=== PATIENT | male | born 1940 | race Caucasian/White ===

== ENCOUNTER 2018-04-16 15:19 | Inpatient (IN) | payer MEDICARE, OTHER ==
[~2018-04-16] VITALS: Ht 172.7 cm; Wt 73.9 kg
[~2018-04-16 15:19] MED LIST: ALBU0.63 IH; ALBU17AE3 IH; ALBU8.5H2 IH; AMLO10TA82 PO; BUDE10.2 IH; CIPR-226 PO; CPR500T PO; FORM0.5P MC; IBUP-1773 PO; LISI10TA2 PO; MNTL10T PO; PHEN-640 PO; PHEN200T27 PO; PRAV80TA2 PO; RT-COMBINH IH; THEO200T20 PO; THEO400T PO; TIOT18CA IH
[2018-04-16] MEDS ORDERED: diphenhydrAMINE 25 MG TAB (BENADRYL) PO PRN (15:45)
[2018-04-16] MEDS ORDERED: DOCUSATE SODIUM 100 MG (COLACE) CAP PO PRN (15:45)
[2018-04-16] MEDS ORDERED: ACETAMINOPHEN 500 MG TAB (TYLENOL) PO PRN (15:45)
[2018-04-16] MEDS ORDERED: ONDANSETRON 4 MG (ZOFRAN) ORAL DISSOLVE TAB PO PRN (15:45)
[2018-04-16] MEDS ORDERED: LOPERAMIDE 2 MG (IMODIUM) CAP PO PRN (15:45)
[2018-04-16] MEDS ORDERED: CALCIUM CARBONATE 500 MG (TUMS) TAB.CHEW PO PRN (15:45)
[2018-04-16] MEDS ORDERED: HYDROcodone/APAP 5 MG/325 MG (LORTAB) TAB PO PRN (15:45)
--- NOTE | 2018-04-16 17:05 | NUR ---
Admitted to room 229-1, with an admitting diagnosis of debility, on 04/16/18 from [place] [facility] , accompanied by .KARUNA SAMUELS introduced to surroundings, call light, bed controls, phone, TV, temperature control, lights, meal times, smoking policy, visitor policy, side rail policy, bathrooms and showers. Patient Rights given to patient in the handbook.KARUNA SAMUELS verbalizes understanding that [facility] is not responsible for the loss or damage to any personal effects or valuables that are kept in the patients posession during their hospitalization. The following Patient Care Plans were discussed with the : Discharge Planning, ,, and . KARUNA SAMUELS verbalizes understanding of Interdisciplinary Patient Education. Patient and/or family were informed about the Rapid Response Team and its purpose. Patient received Patient Rights Booklet, which includes Privacy Act Statement and Data Collection Information Summary.
[2018-04-16 17:30] VITALS: BP 96/62
--- OUTSIDE RECORDS SUMMARY | 2018-04-16 17:30 | XMS REPORT | Continuity of Care Document ---
Author Author [facility] Organization [facility] Address Unknown Phone Unavailable Allergies Active Description Code Type Severity Reaction Onset Reported/Identified Relationship to Patient Clinical Status Yes NO KNOWN DRUG ALLERGIES NO KNOWN DRUG ALLERG UNKNOWN Yes NO KNOWN DRUG ALLERGIES UNKNOWN NO KNOWN DRUG ALLERG Yes No Known Drug Allergies [id number] Drug Allergy Unknown N/A 10/06/2009 Medications Medication Packaging Start Date Stop Date Route Dosage Sig CEFDINIR CAP 300 MG (OMNICEF) MG 03/18/2016 ONCE&1836 HYDROCODONE/APAP 5MG/325MG TAB 5 MG/325MG (RE-TAB 5/325) TAB 03/18/2016 03/18/2016 ONCE&1852 HYDROCODONE/APAP 5MG/325MG TAB 5 MG/325MG (RE-TAB 5/325) TAB 04/03/2018 04/03/2018 PRN ONCE TRAMADOL PAIN PACK TAB 50 MG (ULTRAM PAIN PACK) MG 04/03/2018 04/03/2018 ONCE&1815 LACTATED RINGERS 1000CC IV BAG INJ ml 04/08/2018 04/08/2018 ONCE&1950 CEFTRIAXONE PREMIX IV BAG IV 1 GM/50CC (ROCEPHIN PREMIX IV BAG) GM 04/08/2018 04/08/2018 ONCE&202 FENTANYL INJ 100 MCG/2CC VIAL MCG 04/08/2018 04/08/2018 ONCE&2106 FENTANYL INJ 100 MCG/2CC VIAL MCG 04/08/2018 04/10/2018 PRN EVERY 1 Hour LACTATED RINGERS 1000CC IV BAG INJ ml 04/08/2018 04/10/2018 CONTINUOUSEVERY 0 Hour CEFTRIAXONE PREMIX IV BAG IV 1 GM/50CC (ROCEPHIN PREMIX IV BAG) GM 04/08/2018 04/08/2018 ONCE&2125 FENTANYL INJ 100 MCG/2CC VIAL MCG 04/08/2018 04/08/2018 ONCE&2244 FENTANYL INJ 100 MCG/2CC VIAL MCG 04/08/2018 04/08/2018 ONCE&2253 LACTATED RINGERS 1000CC IV BAG INJ ml 04/08/2018 04/08/2018 ONCE&2302 ACETAMINOPHEN ORAL TABLET 325mg(Tylenol) MG 04/08/2018 04/08/2018 ONCE&2312 PANTOPRAZOLE VIAL INJ 40 MG (PROTONIX IV) MG 04/09/2018 04/18/2018 Daily&0900 Problems Date Dx Coded Attending Type Code Diagnosis Diagnosed By 08/08/2010 Ot 188.8 MALIG FEDE BLADDER NEC 08/08/2010 Ot 401.9 HYPERTENSION NOS 08/08/2010 Ot 496 CHR AIRWAY OBSTRUCT NEC 08/08/2010 Ot 600.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 08/08/2010 Ot V58.69 OTH MED,LT, CURRENT USE 03/15/2015 XOCHITL CLIFTON MD Ot 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 03/15/2015 XOCHITL CLIFTON MD Ot E78.5 HYPERLIPIDEMIA, UNSPECIFIED 03/15/2015 XOCHITL CLIFTON MD Ot F17.210 NICOTINE DEPENDENCE, CIGARETTES, UNCOMPL 03/15/2015 XOCHITL CLIFTON MD Ot I10 ESSENTIAL (PRIMARY) HYPERTENSION 03/15/2015 XOCHITL CLIFTON MD Ot J44.9 CHRONIC OBSTRUCTIVE PULMONARY DISEASE, U 03/15/2015 XOCHITL CLIFTON MD Ot K40.90 UNIL INGUINAL HERNIA, W/O OBST OR GANGR, 03/15/2015 XOCHITL CLIFTON MD Ot Z11.2 ENCOUNTER FOR SCREENING FOR OTHER BACTER 12/11/2015 Ot 239.4 BLADDER NEOPLASM NOS 12/11/2015 Ot 791.9 ABN URINE FINDINGS NEC 12/11/2015 Ot V72.63 PRE- PROCEDURAL LABORATORY EXAMINATION 12/11/2015 Ot V72.81 EXAM-PRE- OPERATIVE CARDIOVASCULAR 12/11/2015 Ot V74.8 SCREEN- BACTERIAL DIS NEC 12/11/2015 XOCHITL CLIFTON MD Ot 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 12/11/2015 XOCHITL CLIFTON MD Ot Z01.818 ENCOUNTER FOR OTHER PREPROCEDURAL EXAMIN 12/12/2015 Ot 239.4 BLADDER NEOPLASM NOS 12/12/2015 Ot 791.9 ABN URINE FINDINGS NEC 12/12/2015 Ot V72.63 PRE- PROCEDURAL LABORATORY EXAMINATION 12/12/2015 Ot V72.81 EXAM-PRE- OPERATIVE CARDIOVASCULAR 12/12/2015 Ot V74.8 SCREEN- BACTERIAL DIS NEC 12/12/2015 XOCHITL CLIFTON MD Ot 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 12/12/2015 XOCHITL CLIFTON MD Ot Z01.818 ENCOUNTER FOR OTHER PREPROCEDURAL EXAMIN 12/12/2015 Ot 239.4 BLADDER NEOPLASM NOS 12/12/2015 Ot 791.9 ABN URINE FINDINGS NEC 12/12/2015 Ot V72.63 PRE- PROCEDURAL LABORATORY EXAMINATION 12/12/2015 Ot V72.81 EXAM-PRE- OPERATIVE CARDIOVASCULAR 12/12/2015 Ot V74.8 SCREEN- BACTERIAL DIS NEC 12/12/2015 XOCHITL CLIFTON MD Ot 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 12/12/2015 XOCHITL CLIFTON MD Ot Z01.818 ENCOUNTER FOR OTHER PREPROCEDURAL EXAMIN 12/13/2015 NIDIA DONALDSON SHAREPOINT APPLICATION DEVELOPER-WINDOWS ADMIN Ot R22.1 LOCALIZED SWELLING, MASS AND LUMP, NECK 12/13/2015 NIDIA DONALDSON SHAREPOINT APPLICATION DEVELOPER-WINDOWS ADMIN Ot R22.1 LOCALIZED SWELLING, MASS AND LUMP, NECK 12/17/2015 NIDIA DONALDSON SHAREPOINT APPLICATION DEVELOPER-WINDOWS ADMIN Ot R22.1 LOCALIZED SWELLING, MASS AND LUMP, NECK 12/19/2015 Ot 239.4 BLADDER NEOPLASM NOS 12/19/2015 Ot 791.9 ABN URINE FINDINGS NEC 12/19/2015 Ot V72.63 PRE- PROCEDURAL LABORATORY EXAMINATION 12/19/2015 Ot V72.81 EXAM-PRE- OPERATIVE CARDIOVASCULAR 12/19/2015 Ot V74.8 SCREEN- BACTERIAL DIS NEC 12/19/2015 XOCHITL CLIFTON MD Ot 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 12/19/2015 XOCHITL CLIFTON MD Ot Z01.818 ENCOUNTER FOR OTHER PREPROCEDURAL EXAMIN 12/19/2015 NIDIA DONALDSON SHAREPOINT APPLICATION DEVELOPER-WINDOWS ADMIN Ot R22.1 LOCALIZED SWELLING, MASS AND LUMP, NECK 12/20/2015 NIDIA DONALDSON SHAREPOINT APPLICATION DEVELOPER-WINDOWS ADMIN Ot R22.1 LOCALIZED SWELLING, MASS AND LUMP, NECK 12/26/2015 BOGE, NIDIA J SHAREPOINT APPLICATION DEVELOPER-WINDOWS ADMIN Ot R22.1 LOCALIZED SWELLING, MASS AND LUMP, NECK 03/18/2016 Mathieu Carrera 305.1 03/18/2016 Mathieu Carrera 491.20 03/18/2016 Mathieu Carrera J44.9 CHRONIC OBSTRUCTIVE PULMONARY DISEASE, UNSPECIFIED 03/18/2016 Mathieu Carrera Z72.0 TOBACCO USE 03/21/2016 Mathieu Carrera 883.1 OPEN WOUND OF FINGERS, COMPLICATED 03/21/2016 Mathieu Carrera S61.211A LACERATION W/O FB OF L IDX FNGR W/O DAMAGE TO NAIL, INIT 03/21/2016 Mathieu Carrera V58.31 ENCOUNTER FOR CHANGE OR REMOVAL OF SURGICAL WOUND DRESSING 03/21/2016 Mathieu Carrera Z48.01 ENCOUNTER FOR CHANGE OR REMOVAL OF SURGICAL WOUND DRESSING 03/24/2016 Mathieu Carrera 272.4 03/24/2016 Mathieu Carrera 724.1 PAIN IN THORACIC SPINE 03/24/2016 Mathieu Carrera 805.2 03/24/2016 Mathieu Carrera 805.4 03/24/2016 Mathieu Carrera 848.3 SPRAIN OF RIBS 03/24/2016 Mathieu Carrera 883.0 OPEN WOUND OF FINGERS, WITHOUT MENTION OF COMPLICATION 03/24/2016 Mathieu Carrera 922.33 CONTUSION OF INTERSCAPULAR REGION 03/24/2016 Mathieu Carrera 959.11 OTHER INJURY OF CHEST WALL 03/24/2016 Mathieu Carrera E78.5 HYPERLIPIDEMIA, UNSPECIFIED 03/24/2016 Mathieu Carrera M54.6 PAIN IN THORACIC SPINE 03/24/2016 Mathieu Carrera S20.221A CONTUSION OF RIGHT BACK WALL OF THORAX, INITIAL ENCOUNTER 03/24/2016 Mathieu Carrera S20.222A CONTUSION OF LEFT BACK WALL OF THORAX, INITIAL ENCOUNTER 03/24/2016 Mathieu Carrera S20.229A CONTUSION OF UNSPECIFIED BACK WALL OF THORAX, INIT ENCNTR 03/24/2016 Mathieu Carrera S22.080A WEDGE COMPRESSION FRACTURE OF T11-T12 VERTEBRA, INITIAL ENCOUNTER FOR CLOSED FRACTURE 03/24/2016 Mathieu Carrera S23.41XA SPRAIN OF RIBS, INITIAL ENCOUNTER 03/24/2016 Mathieu Carrera S29.092A OTHER INJURY OF MUSCLE AND TENDON OF BACK WALL OF THORAX, INITIAL ENCOUNTER 03/24/2016 Mathieu Carrera S32.050A WEDGE COMPRESSION FRACTURE OF FIFTH LUMBAR VERTEBRA, INITIAL ENCOUNTER FOR CLOSED FRACTURE 03/24/2016 Mathieu Carrera S61.211A LACERATION WITHOUT FOREIGN BODY OF LEFT INDEX FINGER WITHOUT DAMAGE TO NAIL, INITIAL ENCOUNTER 03/24/2016 Mathieu Carrera 401.0 03/24/2016 Mathieu Carrera 805.2 03/24/2016 Mathieu Carrera I10 ESSENTIAL (PRIMARY) HYPERTENSION 03/24/2016 Mathieu Carrera S22.050A WEDGE COMPRESSION FRACTURE OF T5-T6 VERTEBRA, INITIAL ENCOUNTER FOR CLOSED FRACTURE 03/29/2016 Mathieu Carrera V58.32 ENCOUNTER FOR REMOVAL OF SUTURES 03/29/2016 Mathieu Carrera Z48.02 ENCOUNTER FOR REMOVAL OF SUTURES 04/08/2018 Mir Larry 584.9 ACUTE KIDNEY FAILURE, UNSPECIFIED 04/08/2018 Mir Larry 599.0 URINARY TRACT INFECTION, SITE NOT SPECIFIED 04/08/2018 Mir Larry 728.88 RHABDOMYOLYSIS 04/08/2018 Mir Larry 780.97 ALTERED MENTAL STATUS 04/08/2018 Mir Larry 787.7 ABNORMAL FECES 04/08/2018 Mir Larry M62.82 RHABDOMYOLYSIS 04/08/2018 Mir Larry N17.9 ACUTE KIDNEY FAILURE, UNSPECIFIED 04/08/2018 Mir Larry N39.0 URINARY TRACT INFECTION, SITE NOT SPECIFIED 04/08/2018 Mir Larry R19.5 OTHER FECAL ABNORMALITIES 04/08/2018 Mir Larry R41.82 ALTERED MENTAL STATUS, UNSPECIFIED Procedures There is no data. Results Test Result Range BMP - 03/18/16 19:25 Anion Gap 17 6-14 BUN 15 mg/dL 5-25 Calcium 10.2 mg/dL 8.3-10.4 Chloride 101 mmol/L 95-114 CO2 20 mEq/L 22-33 Creat 0.96 mg/dL 0.50-1.50 eGFR 76 mL/min/1.73m2 >59 Glucose 99 mg/dL 70-110 Osmo 278 280-295 Potassium 4.2 mmol/L 3.5-5.3 Sodium 134 mmol/L 134-148 Urinalysis - 04/03/18 17:50 Icotest N/A Negative Urine Casts Granular cast: 0-2/HPF Urine Crystals Amorphous material: moderate/HPF Urine Volume Urine Volume Sufficient (10mL) Urine-Appearance Slightly Cloudy Clear Urine-Bacteria Trace Urine-Bilirubin Negative Negative Urine-Blood 2+ Negative Urine-Color Yellow Colorless-Lt. Yellow Urine-Epithelial Cells 1-5/HPF Urine-Glucose Negative Negative Urine-Ketones Trace Negative Urine-Leukocytes Negative Negative Urine-Nitrite Negative Negative Urine-Other Urine Saved if Culture Needed (48hrs from time of collection) Urine-pH 5.0 5-8.5 Urine-Protein Trace Negative Urine-RBC 2-5/HPF Urine-Specific Stanford >=1.030 1.000-1.030 Urine-WBC 2-5/HPF Urobilinogen 0.2 0.2-1.0 Cardiac Panel - 04/08/18 19:39 CK 639 U/L 26-174 CK-MB 14.5 Results verified by repeat analysis ng/ml 0.0- 9.2 Myoglobin >1200.0 Result Verified by Repeat Analysis ng/ml 1.6-154.9 Troponin <0.020 ng/mL 0.0-0.4 Arterial Blood Gas - 04/08/18 19:40 Base -12.00 mmol/L 1.80-4.20 HCO3 14 mmol/L 20-31 O2 Sat 95 ROOM AIR % 95-100 pCO2 26 mm/Hg 35-45 pH 7.34 7.35-7.45 PO2 81 mm/Hg 80-95 Blood Culture - 04/08/18 19:40 PRELIM CULTURE RESULTS Blood Culture Negative, No Growth Day 1 FINAL CULTURE RESULTS Blood Culture Negative, No Growth Day 5 MEDIA PLATED Setup at 21:05 on 04/[id number] Culture Media Position A12 CULTURE SOURCE arterial blood Urinalysis - 04/08/18 20:00 Icotest Negative Negative Urine Crystals Amorphous material: abundant/HPF Urine Volume Urine Volume Sufficient (10mL) Urine-Appearance Turbid Clear Urine-Bacteria Trace Urine-Bilirubin 2+ Negative Urine-Blood 1+ Negative Urine-Color Yellow Colorless-Lt. Yellow Urine-Epithelial Cells 5-10/HPF Urine-Glucose Negative Negative Urine-Ketones Trace Negative Urine-Leukocytes 1+ Negative Urine-Nitrite Negative Negative Urine-Other Urine Saved if Culture Needed (48hrs from time of collection) Urine-pH 5.0 5-8.5 Urine-Protein 1+ Negative Urine-RBC 2-5/HPF Urine-Specific Stanford 1.025 1.000-1.030 Urine-WBC 20-40/HPF Urobilinogen 0.2 0.2-1.0 Lactic Acid - 04/08/18 20:50 Lactic Acid 11.1 mg/dL 4.5-19.8 XM (2) LRPC - 04/08/18 20:50 CROSSMATCH COMPATIBLE X 2 Hct 27.7 % 42.0-52.0 Hgb 8.9 g/dL 14.0-17.0 TYPE/SCREEN - 04/08/18 20:50 ABO/RH O NEGATIVE ANTIBODY SCREEN NEGATIVE Blood Culture - 04/08/18 20:50 PRELIM CULTURE RESULTS Blood Culture Negative, No Growth Day 1 FINAL CULTURE RESULTS Blood Culture Negative, No Growth Day 5 MEDIA PLATED Setup at 21:05 on 04/08/[id number] Culture Media Position A11 CULTURE SOURCE drawn @ Right Arm IFOBT Occult Blood - 04/08/18 20:55 IFOBT Occult Blood POSITIVE Negative Encounters ACCT No. Visit Date/Time Discharge Status Pt. Type Provider Facility Loc./Unit Complaint [id number] 12/11/2015 07:59:00 12/11/2015 23:59:59 CLS Outpatient NIDIA DONALDSON-WINDOWS ADMIN [facility] RAD LT SOFT TISSUE NODULE [id number] 03/15/2015 06:18:00 03/15/2015 11:00:00 DIS Outpatient XOCHITL CLIFTON MD [facility] SDC BLADDER TUMOR [id number] 03/10/2015 11:29:00 03/10/2015 23:59:59 CLS Outpatient XOCHITL CLIFTON MD [facility] PREOP BLADDER TUMOR [id number] 08/08/2010 05:40:00 Document Registration [id number] 07/31/2010 13:39:00 Document Registration [id number] 04/08/2018 19:23:00 04/08/2018 23:25:00 [id number] 04/03/2018 17:20:00 04/03/2018 18:23:00 [facility] [id number] 03/29/2016 11:08:00 03/29/2016 11:35:00 DIS Outpatient Mathieu Carrera [id number] 03/21/2016 13:03:00 03/21/2016 23:59:00 DIS Outpatient Mathieu Carrera [id number] 03/18/2016 15:40:00 03/18/2016 19:41:00 DIS Outpatient [facility] ER [id number] 03/18/2016 18:36:33 Document Registration
--- NOTE | 2018-04-16 18:22 | PM&R H&P / Post Admit Assess ---
History of Present Illness HPI/Chief Complaint CC: Critical illness myopathy w/metabolic encephalopathy HPI: This is a 77yoWM who was [facility] due to critical illness with acute renal failure of 3.7 and dislocated right shoulder with right proximal humerus fracture with sepsis and UTI. Patient was intubated for a short time for AECOPD and metabolic acidosis along with respiratory acidosis. Patient had multiple falls at his home 5 days prior to admit and presented to [facility] with confusion and acute renal failure. Pt was thought to have meningitis but LP revealed no growth. UTI caused bacteremia and sepsis and patient was ultimately placed on Levaquin and will complete that treatment in 7 more days. Patient does have h/o bladder cancer and having urinary frequency so will consult Dr Quiñonez Urology. [place] [facility] [place], [place] as his PCP due to serving in the [employer] for 12 years then serving as a [employer] for 40+ years. His new PCP will be Dr Lavonne Paul. Patient is a poor historian and has multiple chronic illnesses that will require extensive medical management in order to optimize prior to DC home. Source: patient, family, RN/MD, old records Exam Limitations: other Date Seen 04/16/18 Time Seen by a Provider: 18:15 Attending Physician Denita Brown DO PCP No,Local Physician Referring Physician Date of Admission Apr 16, 2018 at 17:05 Home Medications & Allergies Home Medications Reviewed patient Home Medication Reconciliation performed by pharmacy medication reconciliations air conditioning service technician and/or nursing. Patients Allergies have been reviewed. Allergies Allergies Coded Allergies No Known Drug Allergies (Unverified10/06/09) Past Szbdvqe-Ucjpqy-Xvlmte Hx Past Med/Social Hx: Reviewed Nursing Past Med/Soc Hx, Reviewed and Corrections made Patient Social History Marrital Status: Employed/Student: retired ([employer] then [employer] then [employer]) Alcohol Use: Occasionally Uses Recreational Drug Use: No Smoking Status: Former Smoker Physical Abuse Screen: No Sexual Abuse: No Recent Foreign Travel: No Contact w/other who traveled: No Recent Hopitalizations: Yes Recent Infectious Disease Expo: No Immunizations Up To Date Pediatric: Yes Date of Pneumonia Vaccine: Mar 03, 2016 Date of Influenza Vaccine: Jan 01, 2018 Seasonal Allergies Seasonal Allergies: Yes Past Medical History Surgeries: Bladder Surgery Respiratory: Chronic Bronchitis, COPD Currently Using CPAP: No Currently Using BIPAP: No Cardiac: Hypertension Neurological: Dementia Reproductive: No Sexually Transmitted Disease: No Genitourinary: Prostate Problems, Bladder Infection Bladder cancer Musculoskeletal: Chronic Back Pain, Fractures Cancer: Bladder, Skin Did You Recieve Any Treatments: Yes Psychosocial: PTSD History of Blood Disorders: Yes Adverse Reaction to Blood Chen: No Family History Patient reports no known family medical history. Hypertension Review of Systems Constitutional: see HPI, malaise, weakness EENTM: no symptoms reported Respiratory: dyspnea on exertion, short of breath, wheezing Cardiovascular: no symptoms reported Gastrointestinal: no symptoms reported Genitourinary: frequency, hesitancy, incontinence, nocturia Musculoskeletal: other (right arm pain) Skin: no symptoms reported Psychiatric/Neurological: Other (confusion) All Other Systems Reviewed Negative Unless Noted: Yes Physical Exam Exam Vital Signs Vital Signs Date Time Temp Pulse Resp B/P (MAP) Pulse Ox O2 Delivery O2 Flow Rate FiO2 04/17/18 16:03 98 Nasal Cannula 2.50 04/17/18 09:06 126/72 (90) 04/17/18 06:00 98.6 88 20 Capillary Refill : General Appearance: No Apparent Distress, WD/WN, Chronically ill Neck: Full Range of Motion, Normal Inspection, Non Tender, Supple Respiratory: Chest Non Tender, No Accessory Muscle Use, No Respiratory Distress , Crackles, Decreased Breath Sounds, Wheezing Cardiovascular: Regular Rate, Rhythm, No Edema, No Gallop, No JVD, No Murmur Gastrointestinal: Normal Bowel Sounds, No Organomegaly, No Pulsatile Mass, Non Tender, Soft Back: Normal Inspection, No CVA Tenderness, No Vertebral Tenderness Extremity: Normal Capillary Refill, Normal Inspection, Non Tender, No Calf Tenderness, No Pedal Edema, Other (limited ROM right arm with sling intact) Neurologic/Psychiatric: Alert, Oriented x3, No Motor/Sensory Deficits, Normal Mood/Affect, Disoriented, Other (baseline memory impairment noted) Skin: Normal Color, Warm/Dry; No Cool, No Cyanosis, No Damp, No Diaphoresis, No Ecchymosis, No Erythema, No Jaundice, No Mottled, No Pallor, No Petechia, No Rash, No Tattoos/Piercings, No Other Results Results/Procedures Labs Laboratory Tests 04/17/18 05:35 Patient resulted labs reviewed. Assessment/Plan Assessment and Plan Assess & Plan/Chief Complaint Assessment: s/p critical illness s/p sepsis Falls Confusion s/p ARF Severe anemia COPD s/p VDRF Right proximal humerus fracture in sling HTN HLP Poor nutrition status h/o bladder cancer Incontinence with frequency prompting Urology consultation Plan: Check iron level Pain control BM regimen Urology consultation Monitor closely melvin lung function (1) Encephalopathy (2) COPD (chronic obstructive pulmonary disease) (3) Wheezing (4) Proximal humerus fracture (5) Anemia (6) History of renal failure (7) UTI (urinary tract infection) (8) History of sepsis (9) History of bladder cancer (10) Incontinence of urine (11) Confusion (12) Hypertension (13) Hyperlipemia (14) PTSD (post-traumatic stress disorder) (15) Skin cancer (16) Abnormal albumin Post Admission Physician Asses Date seen by provider: Apr 16, 2018 Time seen by provider: 18:30 The preadmission screen agrees with the post admission assessment that the patient is a good candidate for inpatient rehabilitation. The patient will have a comprehensive program of inpatient rehabilitation with a goal of maximizing level of functional independence prior to discharge home with family. The patient will have PT/OT ninety minutes per day, each discipline, five days a week for gait, strengthening, conditioning, balance, ADLs, any patient/family/caregiver training as necessary. Speech therapy to do cognitive assessment and treat as indicated. Rehabilitation nursing to assist with bowel, bladder, skin, wound care, medication administration, pain management. Camp Counselor to assist with discharge planning, community reentry. SCD's for DVT prophylaxis. He appears to be well motivated to participate in three hours of therapy a day. He should be able to tolerate three hours of therapy a day from a medical standpoint. He should benefit from the three hours of therapy a day. He has a reasonable discharge plan, reasonable discharge rehabilitation goals and a supportive family. He has various comorbidities that need to be closely monitored with medications and treatments adjusted on a daily basis as needed. These include: Barriers to discharge for this patient who had been independent prior to this are for him to be modified independent to supervision for ADLs and mobility skills prior to discharge home with [family], so as to lessen the burden of the caregivers. Risks for this patient include: 1. Fall 2. Fracture 3. DVT 4. Pulmonary embolism 5. Wound infection 6. Skin breakdown 7. Contractures 8. Poorly controlled pain 9. Urinary retention 10. UTI 11. Respiratory infection 12. Aspiration Estimated Length of Stay: 14 days Prognosis: Rehab prognosis appears good for goal of discharge home with family modified independent to supervision for ADLs and mobility skills. General: Alert, Oriented X3, Cooperative, No Acute Distress, Other (subtle confusion, appears very chronically ill) HEENT: Atraumatic, PERRLA Neck: Supple, No JVD, No Thyromegaly, +2 Carotid Pulse No Bruit, No LAD Lungs: Other (coarseness BS) Heart: Regular Rate, Normal S1, Normal S2 Abdomen: Normal Bowel Sounds, Soft, No Tenderness, No Hepatosplenomegaly, No Masses Extremities: No Clubbing, No Cyanosis, No Edema, Normal Pulses, No Tenderness/ Swelling Skin: No Rashes, No Breakdown, No Significant Lesion Neuro: Normal Speech, Normal Tone, Sensation Intact, Cranial Nerves 3-12 NL, Reflexes 2+, Other (right arm in sling, weakened gait) Psych/Mental Status: Mood NL, Other (subtle confusion) DENITA BROWN DO Apr 16, 2018 18:22
[2018-04-16] MEDS ORDERED: NON-FORMULARY MEDICATION 1 EA EA PO SCH (19:00)
[2018-04-16] MEDS: RT-ALBUTEROL/IPRATROPIUM 3 ML (DUONEB) VIAL INH SCH (20:46)
[2018-04-16] MEDS: SENNA W/DOCUSATE (SENOKOT S) TABLET PO SCH (21:29)
[2018-04-16] MEDS: PANTOPRAZOLE 40 MG (PROTONIX) TAB PO SCH (21:29)
[2018-04-16] MEDS: MONTELUKAST 10 MG (SINGULAIR) TAB PO SCH (21:30)
[2018-04-17] MEDS: ALPRAZolam 0.25 MG (XANAX) TAB PO PRN ×2 (04:20→21:31)
[2018-04-17] MEDS: PANTOPRAZOLE 40 MG (PROTONIX) TAB PO SCH ×2 (05:39→21:31)
[2018-04-17 05:44] LABS: BASOPHILS % (AUTO) 0 % (0-10); EOSINOPHILS # (AUTO) 0.2 10^3/uL (0.0-0.3); EOSINOPHILS % (AUTO) 2 % (0-10); HEMATOCRIT 25 % (40-54); HEMOGLOBIN 7.7 G/DL (13.3-17.7); LYMPHOCYTES # (AUTO) 1.8 X 10^3 (1.0-4.0); LYMPHOCYTES % (AUTO) 20 % (12-44); MEAN CORPUSCULAR HEMOGLOBIN 32 PG (25-34); MEAN CORPUSCULAR HGB CONC 31 G/DL (32-36); MEAN CORPUSCULAR VOLUME 102 FL (80-99); MEAN PLATELET VOLUME 9.3 FL (7.4-10.4); MONOCYTES # (AUTO) 1.7 X 10^3 (0.0-1.0); MONOCYTES % (AUTO) 18 % (0-12); NEUTROPHILS # (AUTO) 5.6 X 10^3 (1.8-7.8); NEUTROPHILS % (AUTO) 60 % (42-75); PLATELET COUNT 322 10^3/uL (130-400); WHITE BLOOD COUNT 9.4 10^3/uL (4.3-11.0)
[2018-04-17 05:50] LABS: SMEAR SCAN COMMENT YES
[2018-04-17 06:00] VITALS: BP 136/73
[2018-04-17 06:05] LABS: ALANINE AMINOTRANSFERASE 32 U/L (0-55); ALBUMIN 2.7 GM/DL (3.2-4.5); ALKALINE PHOSPHATASE 63 U/L (40-136); BILIRUBIN,TOTAL 0.4 MG/DL (0.1-1.0); BUN/CREATININE RATIO 18; CALCIUM 8.8 MG/DL (8.5-10.1); CARBON DIOXIDE 27 MMOL/L (21-32); CHLORIDE 100 MMOL/L (98-107); CREATININE SERUM 0.79 MG/DL (0.60-1.30); GFR ESTIMATED > 60; GLUCOSE 90 MG/DL (70-105); POTASSIUM 3.8 MMOL/L (3.6-5.0); SODIUM 138 MMOL/L (135-145); TOTAL PROTEIN 6.3 GM/DL (6.4-8.2)
[2018-04-17] MEDS: RT-ALBUTEROL/IPRATROPIUM 3 ML (DUONEB) VIAL INH SCH ×3 (07:58→20:06)
[2018-04-17 09:06] VITALS: BP 126/72
[2018-04-17] MEDS: LACTOBACILLUS ACIDOPHILUS (PROBIOTIC) CAPSULE PO SCH (09:07)
[2018-04-17] MEDS: SENNA W/DOCUSATE (SENOKOT S) TABLET PO SCH ×2 (09:07→21:34)
[2018-04-17] MEDS: HYDROcodone/APAP 7.5 MG/325 MG (LORTAB, LORCET PLUS) TABLET PO PRN ×3 (09:07→23:51)
[2018-04-17] MEDS: amLODIPine 10 MG (NORVASC) TAB PO SCH (09:08)
[2018-04-17] MEDS: lisINopril 5 MG (PRINIVIL) TABLET PO SCH (09:08)
[2018-04-17] MEDS: LEVOFLOXACIN 500 MG TAB (LEVAQUIN) PO SCH (09:08)
[2018-04-17] MEDS: LORATADINE (CLARITIN) 10 MG TAB PO SCH (09:08)
--- NOTE | 2018-04-17 09:58 | PM&R Progress Note ---
Subjective HPI/CC On Admission Date Seen by Provider: Apr 17, 2018 Time Seen by Provider: 10:00 Subjective/Events-last exam Patient having incontinence so will consult Dr Quiñonez and he has graciously seen him Patient denies pain except in his right arm not at bedside today Checking labs and noted hgb 7.7 so will add on iron level BM regimen will be maintained All home meds will be maintained Neb treatments maintained Review of Systems General: Fatigue Pulmonary: Dyspnea Musculoskeletal: shoulder pain Neurological: Weakness, Confusion Objective Exam Vital Signs Vital Signs Date Time Temp Pulse Resp B/P (MAP) Pulse Ox O2 Delivery O2 Flow Rate FiO2 04/17/18 16:03 98 Nasal Cannula 2.50 04/17/18 09:06 126/72 (90) 04/17/18 06:00 98.6 88 20 Capillary Refill : Less Than 3 Seconds General Appearance: No Apparent Distress, WD/WN, Chronically ill, Obese Respiratory: Chest Non Tender, No Accessory Muscle Use, No Respiratory Distress , Crackles, Decreased Breath Sounds, Wheezing Cardiovascular: Regular Rate, Rhythm, No Edema, No Gallop, No JVD, No Murmur, Normal Peripheral Pulses Gastrointestinal: Normal Bowel Sounds, No Organomegaly, No Pulsatile Mass, Non Tender, Soft Extremity: Normal Capillary Refill, Normal Inspection, Normal Range of Motion ( except right arm), Non Tender, No Calf Tenderness, Other (weakness in all extremities) Neurologic/Psychiatric: Alert, Oriented x3, No Motor/Sensory Deficits, Normal Mood/Affect, snubber II-XII Norm as Tested, Disoriented, Other (generalized motor weakness) Skin: Normal Color, Warm/Dry Lymphatic: No Adenopathy Results/Procedures Lab Laboratory Tests 04/17/18 05:35 Patient resulted labs reviewed. Assessment/Plan Assessment and Plan Assess & Plan/Chief Complaint Assessment: s/p critical illness s/p sepsis Falls Confusion s/p ARF Severe anemia COPD s/p VDRF Right proximal humerus fracture in sling HTN HLP Poor nutrition status h/o bladder cancer Incontinence with frequency prompting Urology consultation Plan: Check iron level Pain control BM regimen Urology consultation Monitor closely melvin lung function (1) History of sepsis (2) History of renal failure (3) Proximal humerus fracture (4) Abnormal albumin (5) History of bladder cancer (6) PTSD (post-traumatic stress disorder) (7) Hypertension (8) Skin cancer (9) UTI (urinary tract infection) (10) Encephalopathy (11) Wheezing (12) Incontinence of urine (13) Hyperlipemia (14) Confusion (15) Anemia (16) COPD (chronic obstructive pulmonary disease) Clinical Quality Measures DVT/VTE Risk/Contraindication: Risk Factor Score Per Nursin RFS Level Per Nursing on Admit: 4+=Very High HILLARY BROWN DO Apr 17, 2018 09:58
--- NOTE | 2018-04-17 11:18 | Physical Therapy Evaluation ---
PT Evaluation-General Medical Diagnosis Admission Date Apr 16, 2018 at 17:05 Medical Diagnosis: acute metabolic encephalopathy Onset Date: Apr 17, 2018 Therapy Diagnosis Therapy Diagnosis: weakness; abn gait Height/Weight Height (Feet): 5 Height (Inches): 8.00 Weight (Pounds): 172 Weight (Ounces): 2.0 Precautions Precautions/Isolations: Fall Prevention Weight Bear Status NWB right UE; pt presents in a sling. Referral Physician: Millie Reason for Referral: Evaluation/Treatment Medical History Pertinent Medical History: COPD Additional Medical History acute kidney injury, dislocation right shoulder vs right humeral fx, acute blood loss (anemia), UTI, AMS Acute renal failure and recent falls; cancer, HTN , PTSD, skin cancer Current History Pt admitted to [facility] ICU initially due to sepsis that was believed to be due to an UTI; he had been experiencing frequent falls and sustained a right shoulder injury (dislocation vs fx of humerus). Due to noted admitting diagnosis pt developed acute metabolic encephalopathy. Pt transferred to this facility for continued medical management. Reviewed History: Yes Social History Home: Multilevel Current Living Status: Spouse Entry Into Home: Stairs Without Railing Pt reports he does not go on multiple levels of his home frequently. Prior/Core FIM Prior Level of Function Therapy Code Descriptions/Definitions Functional [place] Measure: 0=Not Assessed/NA 4=Minimal Assistance 1=Total Assistance 5=Supervision or Setup 2=Maximal Assistance 6=Modified [place] 3=Moderate Assistance 7=Complete [place] Therapy Quality Codes: 6 Independent with activity with or without an assistive device 5 Patient requires set up or clean up by helper. Patient completes activity by themselves 4 Supervision or touching assist (CGA). [place] provide cues , steadying assist 3 The helper provides less than half the effort to complete the activity 2 The helper provides more than half the effort to complete the activity 1 Dependent. The helper does all the effort to complete an activity 7 Patient refused to complete or attempt activity 9 The patient did not perform the activity before the current illness or injury 88 Not attempted due to Medical conditions or safety concerns Functional Abilities and Goals: Independent: Patient completed the activities by him/herself, with or without an assistive device, with no assistance from a helper. Needed Some Help: Patient needed partial assistance from another person to complete activities. Dependent: A helper completed the activities for the patient. Unknown: Not Applicable: Bed Mobility: 7 Transfers (B,C,W/C) (FIM): 7 Gait: 7 Stairs: 7 Indoor Mobility (Ambulation): Independent Stairs: Independent Per patient report, he is indep at home. PT Evaluation-Current Subjective Pt agreeable to PT. "That's what I'm here for." Objective Patient Orientation: Person, Place Problem Solving: Fair Attachments: Oxygen (in situ during and post treatment) ROM/Strength ROM Lower Extremities WNL all planes. Strenght Lower Extremities B LE strength is grossly 4/5 throughout. Integumentary/Posture Integumentary Refer to nursing assessement Bowel Incontinence: No Bladder Incontinence: No Posture symmetrical and upright. Neuromuscular (Tone, Coordination, Reflexes) intact and functional Sensory Vision: Functional Hearing: Functional Sensation Right Lower Extremit: Intact Sensation Left Lower Extremity: Intact Transfers Therapy Code Descriptions/Definitions Functional [place] Measure: 0=Not Assessed/NA 4=Minimal Assistance 1=Total Assistance 5=Supervision or Setup 2=Maximal Assistance 6=Modified [place] 3=Moderate Assistance 7=Complete [place] Therapy Quality Codes: 6 Independent with activity with or without an assistive device 5 Patient requires set up or clean up by helper. Patient completes activity by themselves 4 Supervision or touching assist (CGA). [place] provide cues , steadying assist 3 The helper provides less than half the effort to complete the activity 2 The helper provides more than half the effort to complete the activity 1 Dependent. The helper does all the effort to complete an activity 7 Patient refused to complete or attempt activity 9 The patient did not perform the activity before the current illness or injury 88 Not attempted due to Medical conditions or safety concerns Transfers (B, C, W/C) (FIM): 2 Scootin Rollin Roll Left to Right (QC): 3 Supine to/from Sit: 2 (max assist to lift trunk to come to upright to sit EOB) Sit to/from Stand: 3 (MOd assist with skilled cues for sequencing and hand placement) bed t/f WC(FIM only if WC use): 3 (retropulsive and requires mod assist to stay upright) Sit to Lying (QC): 3 (assist with both legs) Lying to Sitting/Side of Bed(Q: 2 Sit to Stand (QC): 3 Chair/Dni-fk-Nmllc Xfer(QC): 3 Car Transfer (QC): 3 Heavy cues for sequencing and task segmentation. Gait Does the Patient Walk?: Yes Mode of Locomotion: Walk Anticipated Mode of Locomotion: Walk Gait (FIM): 2 Distance (FIM): 1=up to 49 ft Walk 10 feet (QC): 3 (mod assist for balance; retropulsive and leans to the right) Walk 50 ft with 2 Turns(QC): 88 (unable to walk this distance) Walk 150 ft (QC): 88 Walking 10ft/uneven surface-QC: 88 (unsafe to attempt; fall risk) Distance: 10 ft and 15 ft Gait Level of Assist: 3 Gait Persons Needed: 1 (additional person to keep the wheelchair close) Gait Assistive Device: Cane Small Base Quad Comments/Gait Description Narrow PRASANNA, tends to keep QC narrow as well, nearly midline, tends to hold QC in the air; foot flat without heel strike or toe off; shuffled with short step length. Retropulsive and leans to the right. Wheelchair Training Does the Pt Use a Wheelchair?: No Stairs Stairs (FIM): 1 (unable to attempt due; unsafe and fall risk) 1 Step (curb) (QC): 88 4 Steps (QC): 88 If not tested on admit;explain unable; unsafe Balance Sitting Static: Good Sitting Dynamic: Fair Standing Static: Poor Standing Dynamic: Poor Picking up an Object (QC): 88 (unsafe to attmpt) Treatment Worked on functional sit to stand transfers with transfer of weight forward; SPT perfomred with focus on hand placement, sequencing and safety. Pt in room post treatmeht with oxygen on and chair alarm activated. Assessment/Needs Pt presents post acute hospital stay with decreased functional strength and balance; NWB throught the right UE all of which impair his functional ability to transfer, walk and mobilize safely. He requires heavy assist with all transfers and gait is limited due to balance, safety and altered pattern. He will benefit from skilled PT to address these deficits to allow him to progress to a level in which he can manage at home safely with his . Rehab Potential: Fair Post Rehab Potential-Barriers: history of recent falls PT Short Term Goals Short Term Goals Time Frame: May 01, 2018 Transfers (B,C,W/C) (FIM): 4 Gait (FIM): 4 Distance (FIM): 3=150 ft Gait Assistive Device: Cane Small Base Quad PT Prison Goals Plug Saw Operator Goals PT Prison Goals Time Frame: May 15, 2018 Transfers (B,C,W/C) (FIM): 6 Sit to Lying (QC): 6 Lying-Sitting on Side/Bed(QC): 6 Sit to Stand (QC): 6 Roll Left to Right (QC): 6 Chair/Rvg-bn-Iimls Xfer(QC): 6 Car Transfer (QC): 6 Does the Patient Walk: Yes Gait (FIM): 6 Gait distance (FIM): 3=150 ft Walk 10 feet (QC): 6 Walk 10ft-Uneven Surface(QC): 6 Walk 50ft with 2 Turns (QC): 6 Walk 150 ft (QC): 6 Gait Assistive Device: Cane Small Base Quad Does the Pt use WC or Scooter?: No Stairs (FIM): 5 # of Steps: 4 (household level) 1 Step (curb) (QC): 6 4 Steps (QC): 6 12 Steps (QC): 88 Stairs Level Of Assist: 6 Picking up an Object (QC): 5 PT Plan Problem List Problem List: Activity Tolerance, Functional Strength, Safety, Balance, Gait, Transfer, Bed Mobility Treatment/Plan Treatment Plan: Continue Plan of Care Treatment Plan: Bed Mobility, Education, Functional Activity Tania, Functional Strength, Group Therapy, Gait, Safety, Therapeutic Exercise, Transfers Treatment Duration: May 15, 2018 Frequency: At least 5 of 7 days/Wk (IRF) Estimated Hrs Per Day: 1.5 hours per day Patient and/or Family Agrees t: Yes Safety Risks/Education Patient Education: Transfer Techniques, Safety Issues Teaching Recipient: Patient Teaching Methods: Demonstration, Discussion Response to Teaching: Reinforcement Needed Discharge Recommendations Therapy D/C Recommendations: Physical Therapy Home Care Time/GCodes Time In: 1000 Time Out: 1100 Total Billed Treatment Time: 60 Total Billed Treatment visit EVM 30 FA 30 NADIA MARTINEZ PT Apr 17, 2018 11:18
--- NOTE | 2018-04-17 12:13 | Occupational Therapy Eval ---
OT Evaluation-General/PLF Medical Diagnosis Admission Date Apr 16, 2018 at 17:05 Medical Diagnosis: acute metabolic encephalopathy Onset Date: Apr 17, 2018 Therapy Diagnosis Therapy Diagnosis: impaired self care skills Height/Weight Height (Feet): 5 Height (Inches): 8.00 Weight (Pounds): 172 Weight (Ounces): 2.0 Precautions Precautions/Isolations: Fall Prevention Safety Interventions: Reorient-PRN Weight Bear Status Weight Bearing Restriction: Non Weight Bearing Location Restriction: R UE Referral Physician: Millie Medical History Pertinent Medical History: COPD Additional Medical History acute kidney injury, dislocation right shoulder vs right humeral fx, acute blood loss (anemia), UTI, AMS Acute renal failure and recent falls; cancer, HTN , PTSD, skin cancer Social History Home: Multilevel (can stay on main level) Current Living Status: Spouse Entry Into Home: Stairs Without Railing Steps Into Home: 6 ADL-Prior Level of Function Therapy Code Descriptions/Definitions Functional [place] Measure: 0=Not Assessed/NA 4=Minimal Assistance 1=Total Assistance 5=Supervision or Setup 2=Maximal Assistance 6=Modified [place] 3=Moderate Assistance 7=Complete [place] Therapy Quality Codes: 6 Independent with activity with or without an assistive device 5 Patient requires set up or clean up by helper. Patient completes activity by themselves 4 Supervision or touching assist (CGA). [place] provide cues , steadying assist 3 The helper provides less than half the effort to complete the activity 2 The helper provides more than half the effort to complete the activity 1 Dependent. The helper does all the effort to complete an activity 7 Patient refused to complete or attempt activity 9 The patient did not perform the activity before the current illness or injury 88 Not attempted due to Medical conditions or safety concerns Functional Abilities and Goals: Independent: Patient completed the activities by him/herself, with or without an assistive device, with no assistance from a helper. Needed Some Help: Patient needed partial assistance from another person to complete activities. Dependent: A helper completed the activities for the patient. Unknown: Not Applicable: ADL PLOF Comments Pt states he is normally independent, but has been falling recently. Uses cane and walker as needed Self Care: Needed Some Help DME/Equipment: Bath Chair, Grab Bars, Shower Drive Self: Yes OT Current Status Subjective Pt in bed, agrees to treatment. Mental Status/Objective Patient Orientation: Person, Place Attachments: Oxygen Current Glasses/Contacts: Yes Hearing Aids: Yes (does not have them here) Dentures/Partials: Yes Hand Dominance: Right Upper Extremity ROM Left UE grossly WFL Right UE not assessed secondary to fracture. Right UE is in sling. Upper Extremity Coordination Left UE functional Right UE not assessed ADL-Treatment ADL-Current Pt supine to sit with max assist and cues for technique. Pt sit to stand with moderate assistance. Transfer to chair with mod assist and cues for safety. Pt is retropulsive in standing. Sponge bath completed while seated in chair. Pt attempted to wash chest, abdomen, and upper legs, but required assist for thorough hygiene. Required assist for other areas. Education provided regarding UE dressing technique secondary to fracture. Pt required assist to thread right UE into shirt sleeve. Pt required total assist to complete UE dressing. Sling placed on right UE. Assist required to thread bilateral LE into Depends and pants. Stood with max assist for balance and required assist for pant hike. Total assist to doff/don socks. Pt used mouth swab to complete oral care. Declined to put dentures in today. Pt requires increased time for ADL tasks. Sitting in chair with needs met and chair alarm on after session. Grooming (FIM): 3 Bathing (FIM): 2 Shower/Bathe Self (QC): 2 Upper Body Dressing (FIM): 1 Upper Body Dressing (QC): 1 Lower Body Dressing (FIM): 1 Lower Body Dressing (QC): 1 On/Off Footwear (QC): 1 Toilet/Commode Transfer (FIM): 3 Toilet Transfer (QC): 3 Education OT Patient Education: Rehab process Teaching Recipient: Patient Teaching Methods: Discussion Response to Teaching: Reinforcement Needed OT Short Term Goals Short Term Goals Time Frame: Apr 24, 2018 Eating(FIM): 5 Grooming(FIM): 5 Bathing(FIM): 3 Upper Body Dressing(FIM): 3 Lower Body Dressing(FIM): 2 Toileting(FIM): 3 Toilet/Commode Transfer(FIM): 4 Shower Transfer(FIM): 3 Additional Short Term Goals: 1-Demonstrate ADL Tasks, 2-Verbalize Understanding , 3-ImproveStrength/Tania 1=Demonstrate adherence to instructed precautions during ADL tasks. 2=Patient will verbalize/demonstrate understanding of assistive devices/ modifications for ADL. 3=Patient will improve strength/tolerance for activity to enable patient to perform ADL's. OT Half-Way Goals Surgical Supervisor Goals Time Frame: May 08, 2018 Eating (FIM): 5 Eating (QC): 5 Groomin Oral Hygiene (QC): 5 Bathing(FIM): 4 Shower/Bathe Self (QC): 4 Upper Body Dressing(FIM): 5 Upper Body Dressing (QC): 5 Lower Body Dressing(FIM): 5 Lower Body Dressing (QC): 5 On/Off Footwear (QC): 5 Toileting(FIM): 5 Toileting Hygiene (QC): 5 Toilet/Commode Transfer(FIM): 5 Toilet/Commode Transfer (QC): 5 Shower Transfer(FIM): 5 Additional Goals: 1-Demonstrate ADL Tasks, 2-Verbalize Understanding, 3- ImproveStrength/Tania 1=Demonstrate adherence to instructed precautions during ADL tasks. 2=Patient will verbalize/demonstrate understanding of assistive devices/ modifications for ADL. 3=Patient will improve strength/tolerance for activity to enable patient to perform ADL's. Goals established to promote increased functional independence and allow safe discharge plan. OT Education/Plan Problem List/Assessment Assessment: Decreased Activ Tolerance, Decreased Safety Aware, Decreased UE Strength, Dependent Transfers, Impaired Bed Mobility, Impaired Coordination, Impaired Funct Balance, Impaired I ADL's, Impaired Self-Care Skills, Restricted Funct UE ROM Pt to benefit from skilled OT intervention for ADL training, transfers, strengthening, and safety education to increase level of independence and allow safe discharge plan. Discharge Recommendations Plan/Recommendations: Continue POC Treatment Plan/Plan of Care Treatment,Training & Education: Yes Patient would benefit from OT for education, treatment and training to promote independence in ADL's, mobility, safety and/or upper extremity function for ADL' s. Plan of Care: ADL Retraining Treatment Duration: May 08, 2018 Frequency: At least 5 of 7 days/Wk (IRF) Estimated Hrs Per Day: 1.5 hours per day Rehab Potential: Fair Time/GCodes Start Time: 09:00 Stop Time: 10:00 Total Time Billed (hr/min): 60 Billed Treatment Time 1 visit, EVM(15minutes), ADLx3(45minutes) SHERIE BRIONES OT Apr 17, 2018 12:13
[2018-04-17] MEDS ORDERED: THEO400T PO (12:54)
[2018-04-17] MEDS ORDERED: AMLO10TA7 PO (12:54)
[2018-04-17] MEDS ORDERED: CETI10TA17 PO (12:54)
[2018-04-17] MEDS ORDERED: LISI10TA2 PO (12:54)
[2018-04-17] MEDS ORDERED: MONT10TA24 PO (12:54)
[2018-04-17] MEDS ORDERED: IPRA4AER IH (12:54)
[2018-04-17] MEDS ORDERED: HYDR-3812 PO (13:03)
[2018-04-17] MEDS ORDERED: IPRA3AMP31 IH (13:05)
--- NOTE | 2018-04-17 13:07 | NUR ---
UPDATED THE PATIENTS MED REC TO THE MEDICATIONS HE WAS TAKING UPON ADMISSION TO [facility] USING THE DISCHARGE MEDICATION LIST. I ALSO HAD A LIST OF MEDICATIONS FAXED OVER FROM THE [facility]. THEY COULD NOT RELEASE TO ME THE DATES THESE WERE LAST FILLED BUT DID SEND HIS CURRENT MED LIST. I REQUESTED A LIST FROM THE [facility] THAT INCLUDED THE DATES THEY WERE LAST DISPENSED BUT HAVE NOT RECEIVED IT AT THIS TIME. [place] LIST: COMBIVENT INHALER 1 PUFF QID AMLODIPINE 10MG DAILY AMMONIUM LACTATE LOTION AAA BID FOR DRY SKIN CETIRIZINE 10MG DAILY PRN LISINOPRIL 10MG 1/2 TAB DAILY SINGULAIR 10MG EVENING THEOPHYLLINE 400MG DAILY THE LIST FROM [facility] ALSO INCLUDES SYMBICORT 160 2 PUFFS BID AND DUONEB NEBULIZER SOLUTION Q6H PRN. ALSO NOTE THE DIRECTIONS ON THE COMBIVENT FROM [facility] WERE BID. I UPDATED THE MED REC TO WHAT [facility] HAD ON FILE. NOTE THE FOLLOWING CHANGES WERE MADE WHEN THE PATIENT DISCHARGED TO [facility] THAT ARE NOT CURRENTLY REFLECTED ON THE HOME MED REC: START TAKING: LEVAQUIN 500MG DAILY X 7 DAYS PROTONIX 40MG BID LACTOBACILLUS DAILY X 10 DAYS STOP TAKING: THEOPHYLLINE
[2018-04-17] MEDS ORDERED: AMMO225L5 TP (13:14)
--- NOTE | 2018-04-17 13:40 | Therapy Group Daily Note ---
Therapy Daily Group Note Patient Education Topic Other List Below Exercises Fine Motor, UE Exercise Other/Notes Pt participated in group therapy with 4 to 1 ratio. Goals of Session: Demonstrates ability to use fine motor skills to open packages/containers, ongoing. Acknowledge or verbalize understanding of winter safety, met. OT/PT group consisted of introductions (name and place), socialization, educational topics (winter safety) and UE gross/fine motor functional tasks. Pt introduced self appropriately and actively listened to peers. Pt contributed to discussions and contributed to conversations with peers. Pt was able to demonstrate good L UE gross/fine motor skills during functional tasks while eating lunch, due to L UE being immobile pt required assist to open packages/containers.. Pt giving own strategies and experiences during educational topics. Pt will benefit from group by using resources and topics discussed to improve awareness and safety. Pt benefits by being independent and increasing strength in B UE's. After therapy, pt transported via w/c back to room and laid in bed. Call light/phone in reach. All needs met in room. Start Time: 12:00 Stop Time: 13:10 Total Billed Treatment Time: 70 Total Billed Treatment 1-GRP NADIA ALVAREZ Apr 17, 2018 13:40
--- NOTE | 2018-04-17 15:18 | CONSULTATION REPORT ---
DATE OF SERVICE: 04/17/2018 ATTENDING PHYSICIAN: Dr. Pinto. SUMMARY: A 77-year-old white man admitted with metabolic encephalopathy and was found to have incontinence and frequency. I reviewed his record at the office, he was an established patient of mine, had TURBTs in 2009, 2010 and 2015. His last month cystoscopy #1 was in June of 2015. He was supposed to come back three months later in August, but he failed to appear. He was rescheduled, but failed to appear as well. His last rectal exam was in 2015 and was negative and his last PSA in 2016 was 2.1. He was subsequently lost for followup. He denies any other voiding symptoms including gross hematuria. ASSESSMENT: 1. Urinary incontinence with frequency. 2. History of CA of the bladder post TURBT x 3. PLAN: The patient is going to need a cystoscopy to both check on the recurrence of any bladder tumor and the urinary system as a whole. We will also check the postvoid residual bladder scan on him today to rule out any retention with overflow. Job ID: [id number] DocumentID: [id number] Dictated Date: 04/17/2018 12:49:19 Manager Functional Date: 04/17/2018 15:17:36 Dictated By: XOCHITL CLIFTON MD
[2018-04-17 18:00] VITALS: BP 103/64
--- NOTE | 2018-04-17 19:26 | NUR ---
bedside report received from KOBI HERNANDEZ, assume care of pt
--- NOTE | 2018-04-17 21:00 | NUR ---
assessments & interventions completed, see assessments & interventions, pt needs much encouragement to do things for self like waste picker his drinking glass wants nursing staff to do for him advised needs to waste picker drinking glass for self since this nurse got smaller cup so pt could handle cup states my arm is broke advised lt arm is not so i wanted to see him do it for himself & pt could, refused Senokot 2 tabs po
[2018-04-17] MEDS: guaiFENesin/CODEINE (ROBITUSSIN AC) 10ML UDC PO PRN (21:31)
[2018-04-17] MEDS: MONTELUKAST 10 MG (SINGULAIR) TAB PO SCH (21:31)
--- NOTE | 2018-04-17 21:32 | NUR ---
given Xanax 0.25mg for anxiety & Robitussin 10ml for cough encouraged to cough & deep breathe, has been incontinent cleaned & changed
--- NOTE | 2018-04-17 21:45 | NUR ---
calls to tell us he is wet but does not call to use urinal, cleaned & changed again
--- NOTE | 2018-04-17 22:00 | NUR ---
repositioned to side but pt wants to lie on back only advised could get pressure sore
--- NOTE | 2018-04-17 23:51 | NUR ---
has called out x3 to position back to back states he is hurting Lortab 7.5 1 tab given for pain level 10/10 on numeric scale
--- NOTE | 2018-04-18 00:30 | NUR ---
resting quietly in bed, pain level 0/10 on flacc scale
--- NOTE | 2018-04-18 06:10 | NUR ---
up in the chair with 2 people assist & cane
[2018-04-18 06:41] VITALS: BP 134/79
[2018-04-18] MEDS: RT-ALBUTEROL/IPRATROPIUM 3 ML (DUONEB) VIAL INH SCH ×3 (06:41→21:10)
[2018-04-18] MEDS: PANTOPRAZOLE 40 MG (PROTONIX) TAB PO SCH ×2 (07:01→20:23)
[2018-04-18] MEDS: HYDROcodone/APAP 7.5 MG/325 MG (LORTAB, LORCET PLUS) TABLET PO PRN ×2 (07:01→20:23)
--- NOTE | 2018-04-18 07:01 | NUR ---
c/o back pain level 10/10 on numeric scale, lortab 7.5 1 tab po given
--- NOTE | 2018-04-18 07:08 | NUR ---
bedside report given to KOBI HERNANDEZ
[2018-04-18] MEDS: LORATADINE (CLARITIN) 10 MG TAB PO SCH (08:17)
[2018-04-18] MEDS: LEVOFLOXACIN 500 MG TAB (LEVAQUIN) PO SCH (08:17)
[2018-04-18 08:18] VITALS: BP 94/58
[2018-04-18] MEDS: LACTOBACILLUS ACIDOPHILUS (PROBIOTIC) CAPSULE PO SCH (08:18)
[2018-04-18] MEDS: SENNA W/DOCUSATE (SENOKOT S) TABLET PO SCH ×2 (08:18→20:23)
[2018-04-18] MEDS: amLODIPine 10 MG (NORVASC) TAB PO SCH (09:00)
[2018-04-18] MEDS: lisINopril 5 MG (PRINIVIL) TABLET PO SCH (09:00)
--- NOTE | 2018-04-18 10:19 | Occupational Ther Daily Note ---
OT Current Status-Daily Note Subjective Pt seen in room, up in recliner, agreeable to OT. No pain mentioned. Appearance Alert, cooperative Mental Status/Objective Therapy Code Descriptions/Definitions Functional [place] Measure: 0=Not Assessed/NA 4=Minimal Assistance 1=Total Assistance 5=Supervision or Setup 2=Maximal Assistance 6=Modified [place] 3=Moderate Assistance 7=Complete [place] Attachments: Oxygen, Saline Lock ADL-Treatment Co-treat with PT, with PT focusing on transfers and balance and OT focusing on ADLs and use of UEs, including R hand. Pt needs frequent reminders and encouragement to use L UE and physical assistance to use R hand. Pt transferred to shower chair with mod assistance, quad cane and transported to shower room. Sit to stand several times during shower and dressing, using L hand on grab bar. Pt assisted a little with undressing and dressing upper body, with cues and encouragement, modified technique. Unable to take slipper socks off or put them on but able to help pickle cutter feet. Two person assist for sit to stand and to change briefs. Pt was incontinent of stool during shower and unable to assist with hygiene or clothing management. Pt washed face, front zee area, part of R UE, but needed encouragement to use L UE. Pt transported to therapy gym and walked several feet to w/c, cues to use quad cane with L hand. Able to get a drink with L UE and feed himself finger food (per nursing) but a little help and encouragement needed. Pt declined to clean dentures and thought his had taken them home. He does not want to wear them. While seated in w/c, worked on grasp and release and reach with L UE, with PT focusing on balance and OT focusing on UE function. Pt was able to hold cone in R hand unsupported for a few seconds x 3 reps but unable to release cone without help. 10 reps grasp and release R hand, with assistance for finger extension. Significant edema in R hand. Pt returned to his room, walked to bed with cues for use of quad cane with L hand. Pt able to help position himself in bed, including upper trunk but with cues for each step. Pt left up in bed, pillows supporting UEs, sling and O2 in place, bed alarm on, all needs met. Therapy Code Descriptions/Definitions Functional [place] Measure: 0=Not Assessed/NA 4=Minimal Assistance 1=Total Assistance 5=Supervision or Setup 2=Maximal Assistance 6=Modified [place] 3=Moderate Assistance 7=Complete [place] Therapy Quality Codes: 6 Independent with activity with or without an assistive device 5 Patient requires set up or clean up by helper. Patient completes activity by themselves 4 Supervision or touching assist (CGA). [place] provide cues , steadying assist 3 The helper provides less than half the effort to complete the activity 2 The helper provides more than half the effort to complete the activity 1 Dependent. The helper does all the effort to complete an activity 7 Patient refused to complete or attempt activity 9 The patient did not perform the activity before the current illness or injury 88 Not attempted due to Medical conditions or safety concerns Eating (FIM): 4 Eating (QC): 3 Oral Hygiene (QC): 7 (declined to clean dentures and doesn't want to wear them) Bathing (FIM): 1 (Two person assist to stand to wash bottom) Bathing Location: R Arm (partially), Perineal Area Upper Body (FIM): 1 Lower Body Dressing (FIM): 1 Toileting (FIM): 1 (Two person assist. Unable to help with clothing or hygiene. Incont BM during shower) Toileting Hygiene (QC): 1 Shower Transfer(FIM): 3 (Mod assist to shower chair) Education OT Patient Education: Modified ADL techniques, Progress toward Goal/Update tx plan, Purpose of tx/functional activities, Safety issues, Transfer techniques Teaching Recipient: Patient Teaching Methods: Demonstration, Discussion Response to Teaching: Verbalize Understanding, Return Demonstration, Reinforcement Needed OT Short Term Goals Short Term Goals Time Frame: Apr 24, 2018 Eating(FIM): 5 Grooming(FIM): 5 Bathing(FIM): 3 Upper Body Dressing(FIM): 3 Lower Body Dressing(FIM): 2 Toileting(FIM): 3 Toilet/Commode Transfer(FIM): 4 Shower Transfer(FIM): 3 Additional Short Term Goals: 1-Demonstrate ADL Tasks, 2-Verbalize Understanding , 3-ImproveStrength/Tania 1=Demonstrate adherence to instructed precautions during ADL tasks. 2=Patient will verbalize/demonstrate understanding of assistive devices/ modifications for ADL. 3=Patient will improve strength/tolerance for activity to enable patient to perform ADL's. OT Power System Operator Goals Power System Operator Goals Time Frame: May 08, 2018 Eating (FIM): 5 Eating (QC): 5 Groomin Oral Hygiene (QC): 5 Bathing(FIM): 4 Shower/Bathe Self (QC): 4 Upper Body Dressing(FIM): 5 Upper Body Dressing (QC): 5 Lower Body Dressing(FIM): 5 Lower Body Dressing (QC): 5 On/Off Footwear (QC): 5 Toileting(FIM): 5 Toileting Hygiene (QC): 5 Toilet/Commode Transfer(FIM): 5 Toilet/Commode Transfer (QC): 5 Shower Transfer(FIM): 5 Additional Goals: 1-Demonstrate ADL Tasks, 2-Verbalize Understanding, 3- ImproveStrength/Tania 1=Demonstrate adherence to instructed precautions during ADL tasks. 2=Patient will verbalize/demonstrate understanding of assistive devices/ modifications for ADL. 3=Patient will improve strength/tolerance for activity to enable patient to perform ADL's. OT Education/Plan Problem List/Assessment Pt to benefit from skilled OT intervention for ADL training, transfers, strengthening, and safety education to increase level of independence and allow safe discharge plan. Discharge Recommendations Plan/Recommendations: Continue POC Treatment Plan/Plan of Care Patient would benefit from OT for education, treatment and training to promote independence in ADL's, mobility, safety and/or upper extremity function for ADL' s. Plan of Care: ADL Retraining Treatment Duration: May 08, 2018 Frequency: At least 5 of 7 days/Wk (IRF) Estimated Hrs Per Day: 1.5 hours per day Rehab Potential: Fair Time/GCodes Start Time: 08:30 Stop Time: 10:00 Total Time Billed (hr/min): 90 Billed Treatment Time visit, 60 minutes ADL, 15 minutes neuromotor, 15 minutes functional activity ( all co-treat with PT) TYSON JEROME OT Apr 18, 2018 10:19
--- NOTE | 2018-04-18 10:53 | Progress Note-Urology ---
Progress Note-Urology Progress Notes/Assess & Plan Progress/Assessment & Plan DISCUSSED WITH PATIENT PLAN TO DO CYSTOSCOPY AT BEDSIDE EITHER FRIDAY OR FRIDAY. FULLY EXPLAINED Final Diagnosis INCONTINENCE AND HISTORY OF CA BLADDER XOCHITL CLIFTON MD Apr 18, 2018 10:53
--- NOTE | 2018-04-18 11:01 | Physical Therapy Daily Note ---
PT Daily Note-Current Subjective Agrees to PT. Reports he is tired today. Agrees to a shower with encouragement. Transfers Therapy Code Descriptions/Definitions Functional [place] Measure: 0=Not Assessed/NA 4=Minimal Assistance 1=Total Assistance 5=Supervision or Setup 2=Maximal Assistance 6=Modified [place] 3=Moderate Assistance 7=Complete [place] Therapy Quality Codes: 6 Independent with activity with or without an assistive device 5 Patient requires set up or clean up by helper. Patient completes activity by themselves 4 Supervision or touching assist (CGA). [place] provide cues , steadying assist 3 The helper provides less than half the effort to complete the activity 2 The helper provides more than half the effort to complete the activity 1 Dependent. The helper does all the effort to complete an activity 7 Patient refused to complete or attempt activity 9 The patient did not perform the activity before the current illness or injury 88 Not attempted due to Medical conditions or safety concerns Weight Bearing NWB right UE; pt presents in a sling. Treatments Co treat with OT due to the need for heavy cues and assist with all tasks. Pt requires skilled verbal and tactile cues for all task initiation and completion. PT focusing on transfers and balance and OT focusing on ADLs and use of UEs, including R hand. Pt needs frequent reminders and encouragement to use L UE and physical assistance to use R hand. Pt transferred to shower chair with mod assistance, quad cane and transported to shower room. Sit to stand several times during shower and dressing, using L hand on grab bar. Pt assisted a little with undressing and dressing upper body, with cues and encouragement, modified technique. Unable to take slipper socks off or put them on but able to help pick up driver feet. Two person assist for sit to stand and to change briefs. Pt was incontinent of stool during shower and unable to assist with hygiene or clothing management. Pt washed face, front zee area, part of R UE, but needed encouragement to use L UE. Pt transported to therapy gym and walked 10 ft to w/c , cues to use quad cane with L hand, mod assist at the gait belt and cues for foot placement and step length. Able to get a drink with L UE and feed himself finger food (per nursing) but a little help and encouragement needed. Pt declined to clean dentures and thought his had taken them home. He does not want to wear them. While seated in w/c, worked on grasp and release and reach with L UE, with PT focusing on balance as well as core activitation to lean, recline and turn his trunk and OT focusing on UE function. Pt returned to his room, walked to bed with cues for use of quad cane with L hand. Pt able to help position himself in bed, including upper trunk but with cues for each step. Pt left up in bed, pillows supporting UEs, sling and O2 in place, bed alarm on, all needs met. Assessment Current Status: Fair Progress Pt does not initiate activity and needs heavy cues to initiate as well as stay on task. Retropulsivie with intitial standing and requires mod assist to lean forward to weight shift. Pt is cooperative but slow with all tasks. PT Short Term Goals Short Term Goals Time Frame: May 01, 2018 Gait (FIM): 4 Distance (FIM): 3=150 ft Gait Assistive Device: Cane Small Base Quad PT Land Conservation Specialist Goals Mcfp Goals PT Mcfp Goals Time Frame: May 15, 2018 Transfers (B,C,W/C) (FIM): 6 Sit to Lying (QC): 6 Lying-Sitting on Side/Bed(QC): 6 Sit to Stand (QC): 6 Rollin Roll Left to Right (QC): 6 Chair/Rui-oz-Rkncx Xfer(QC): 6 Car Transfer (QC): 6 Does the Patient Walk: Yes Gait (FIM): 6 Gait distance (FIM): 3=150 ft Walk 10 feet (QC): 6 Walk 10ft-Uneven Surface(QC): 6 Walk 50ft with 2 Turns (QC): 6 Walk 150 ft (QC): 6 Gait Assistive Device: Cane Small Base Quad Does the Pt use WC or Scooter?: No Stairs (FIM): 5 # of Steps: 4 (household level) 1 Step (curb) (QC): 6 4 Steps (QC): 6 12 Steps (QC): 88 Stairs Level Of Assist: 6 Picking up an Object (QC): 5 PT Plan Problem List Problem List: Activity Tolerance, Functional Strength, Safety, Balance, Gait, Transfer, Bed Mobility Treatment/Plan Treatment Plan: Continue Plan of Care Treatment Plan: Bed Mobility, Education, Functional Activity Tania, Functional Strength, Group Therapy, Gait, Safety, Therapeutic Exercise, Transfers Treatment Duration: May 15, 2018 Frequency: At least 5 of 7 days/Wk (IRF) Estimated Hrs Per Day: 1.5 hours per day Patient and/or Family Agrees t: Yes Safety Risks/Education Patient Education: Safety Issues Teaching Recipient: Patient Teaching Methods: Discussion Response to Teaching: Reinforcement Needed Time/GCodes Time In: 830 Time Out: 1000 Total Billed Treatment Time: 90 Total Billed Treatment visit FA 90 NADIA MARTINEZ PT Apr 18, 2018 11:01
--- NOTE | 2018-04-18 11:15 | Progress Note-Hospitalist ---
Subjective HPI/CC On Admission Date Seen by Provider: Apr 18, 2018 Time Seen by Provider: 11:30 CC: Critical illness myopathy w/metabolic encephalopathy HPI: This is a 77yoWM who was admitted to [facility] due to critical illness with acute renal failure of 3.7 and dislocated right shoulder with right proximal humerus fracture with sepsis and UTI. Patient was intubated for a short time for AECOPD and metabolic acidosis along with respiratory acidosis. Patient had multiple falls at his home 5 days prior to admit and presented to [facility] with confusion and acute renal failure. Pt was thought to have meningitis but LP revealed no growth. UTI caused bacteremia and sepsis and patient was ultimately placed on Levaquin and will complete that treatment in 7 more days. Patient does have h/o bladder cancer and having urinary frequency so will consult Dr Quiñonez Urology. [facility] usually [facility] [place], [place] as his PCP due to serving in the [employer] for 12 years then serving as a [employer] for 40+ years. His new PCP will be Dr Lavonne Paul. Patient is a poor historian and has multiple chronic illnesses that will require extensive medical management in order to optimize prior to DC home. Subjective/Events-last exam Patient doing well overall Confusion noted and this could be an extension of his baseline Pain is controlled with pain meds right shoulder Minimal control over his bowels Cysto will be performed by Dr Quiñonez Friday or Friday since he has a h/o bladder cancer and had no f/u with him Increasing cues to help him Review of Systems General: Fatigue Pulmonary: Cough Musculoskeletal: arm pain Objective Exam Vital Signs Vital Signs Date Time Temp Pulse Resp B/P (MAP) Pulse Ox O2 Delivery O2 Flow Rate FiO2 04/18/18 09:00 98 Nasal Cannula 2.00 04/18/18 08:18 86 94/58 (70) 04/18/18 06:41 98.4 20 Capillary Refill : Less Than 3 Seconds General Appearance: No Apparent Distress, WD/WN, Chronically ill, Obese Neck: Full Range of Motion, Normal Inspection, Non Tender, Supple Respiratory: Chest Non Tender, No Accessory Muscle Use, No Respiratory Distress , Crackles, Decreased Breath Sounds, Wheezing Cardiovascular: Regular Rate, Rhythm, No Edema, No Gallop, No JVD, No Murmur, Normal Peripheral Pulses Gastrointestinal: Normal Bowel Sounds, No Organomegaly, No Pulsatile Mass, Non Tender, Soft Back: Normal Inspection, No CVA Tenderness, No Vertebral Tenderness Extremity: Normal Capillary Refill, Normal Inspection, Normal Range of Motion ( except right arm), Non Tender, No Calf Tenderness, Other (weakness in all extremities) Neurologic/Psychiatric: Alert, Oriented x3, No Motor/Sensory Deficits, education program coordinator II- XII Norm as Tested, Depressed Affect, Disoriented, Other (generalized motor weakness) Skin: Normal Color, Warm/Dry Lymphatic: No Adenopathy Results/Procedures Lab Patient resulted labs reviewed. Assessment/Plan Assessment and Plan Assess & Plan/Chief Complaint Assessment: s/p critical illness s/p sepsis Falls Confusion s/p ARF Severe anemia COPD s/p VDRF Right proximal humerus fracture in sling HTN HLP Poor nutrition status h/o bladder cancer Incontinence with frequency prompting Urology consultation Dementia at baseline? Plan: Check iron level when completed Pain control BM regimen Urology consultation Monitor closely melvin lung function Check labs tomorrow Diagnosis/Problems Diagnosis/Problems (1) Encephalopathy Status: Acute (2) History of sepsis Status: Resolved (3) History of renal failure Status: Resolved (4) Proximal humerus fracture Status: Acute Qualifiers: Encounter type: subsequent encounter Fracture type: closed Fracture morphology: other fracture Fracture alignment: nondisplaced Laterality: right Fracture healing: with routine healing Qualified Codes: S42.294D - Other nondisplaced fracture of upper end of right humerus, subsequent encounter for fracture with routine healing (5) Abnormal albumin Status: Acute (6) History of bladder cancer Status: Chronic (7) PTSD (post-traumatic stress disorder) Status: Chronic (8) Hypertension Status: Chronic Qualifiers: Hypertension type: essential hypertension Qualified Codes: I10 - Essential (primary) hypertension (9) Skin cancer Status: Chronic (10) UTI (urinary tract infection) Status: Acute Qualifiers: Urinary tract infection type: acute cystitis Hematuria presence: with hematuria Qualified Codes: N30.01 - Acute cystitis with hematuria (11) Wheezing Status: Acute (12) Incontinence of urine Status: Acute Qualifiers: Urinary Incontinence type: unspecified incontinence Qualified Codes: R32 - Unspecified urinary incontinence (13) Hyperlipemia Status: Chronic Qualifiers: Hyperlipidemia type: mixed hyperlipidemia Qualified Codes: E78.2 - Mixed hyperlipidemia (14) Confusion Status: Acute (15) Anemia Status: Chronic Qualifiers: Anemia type: iron deficiency Iron deficiency anemia type: unspecified iron deficiency Qualified Codes: D50.9 - Iron deficiency anemia, unspecified (16) COPD (chronic obstructive pulmonary disease) Status: Chronic Qualifiers: COPD type: unspecified COPD Qualified Codes: J44.9 - Chronic obstructive pulmonary disease, unspecified Clinical Quality Measures DVT/VTE Risk/Contraindication: Risk Factor Score Per Nursin RFS Level Per Nursing on Admit: 4+=Very High HILLARY BROWN DO Apr 18, 2018 11:15
--- NOTE | 2018-04-18 11:15 | Individualized Plan of Care ---
Individualized Plan of Care Rehab Nursing IPOC Order Admission Date Apr 16, 2018 at 17:05 Current Orders Orders Admission Order(Inpt,Obs,Sdc) (04/16/18 15:36) Vital Signs: Routine (Order) 08,16,00 (04/16/18 15:36) Devante Hose 09,21 (04/16/18 15:36) Sequential Compression Device 08,20 (04/16/18 15:36) Atm Technician-Inpt Rehab Con (04/16/18 15:36) Rehab Nursing Orders-Ipoc (04/16/18 15:36) Physical Therapy Rehab Orders (04/16/18 15:36) Occupational Therapy Rehab Ord (04/16/18 15:36) Speech Therapy Rehab Orders (04/16/18 15:36) General/Regular (04/16/18 Dinner) Intake & Output 06,14,22 (04/16/18 15:36) Precautions (Aru) (04/16/18 15:36) Weekly Weight (Lbs) WEEK (04/16/18 15:36) Rehab-Intensity Of Therapy (04/16/18 15:36) Code/Resuscitation (04/16/18 15:36) Initiate Admission Nursing Pro .admission (04/16/18 15:36) Acetaminophen Tablet (Tylenol Tablet) (04/16/18 15:45) Alprazolam Tablet (Xanax Tablet) (04/16/18 15:45) Calcium Carbonate Chew Tablet (Antacid C (04/16/18 15:45) Diphenhydramine Tablet (Benadryl Tablet) (04/16/18 15:45) Docusate Sodium Capsule (Colace Capsule) (04/16/18 15:45) Ondansetron Oral Dissolve Tab (Zofran (04/16/18 15:45) Hydrocodone/Apap 5/325 Tablet (Lortab 5 (04/16/18 15:45) Senna S Tablet (Senokot S Tablet) (04/16/18 21:00) Guaifenesin/Codeine Syrup (Robitussin Ac (04/16/18 15:45) Melatonin Tablet (Melatonin Tablet) (04/16/18 15:45) Loperamide Capsule (Imodium Capsule) (04/16/18 15:45) Cbc With Automated Diff (04/17/18 06:00) Comprehensive Metabolic Panel (04/17/18 06:00) Amlodipine Tablet (Norvasc Tablet) (04/17/18 09:00) Non-Formulary Medication (Non-Formulary (04/16/18 19:00) Albuterol/Ipra Inhalation Soln (Duoneb I (04/16/18 19:00) Svn Small Volume Nebulizer (04/16/18 18:49) Albuterol/Ipra Inhalation Soln (Duoneb I (04/16/18 22:00) Svn Small Volume Nebulizer (04/16/18 18:49) Lactobacillus Acidophilus Cap (Acidophil (04/17/18 09:00) Levofloxacin Tablet (Levaquin Tablet) (04/17/18 09:00) Lisinopril Tablet (Zestril Tablet) (04/17/18 09:00) Montelukast Tablet (Singulair Tablet) (04/16/18 21:00) Pantoprazole Tablet (Protonix Tablet) (04/16/18 21:00) Loratadine Tablet (Claritin Tablet) (04/17/18 09:00) Communication For Respiratory (04/16/18 21:04) Hydrocodone/Apap 7.5/325 Tab (Lortab 7. (04/17/18 09:00) Consult Urology (04/17/18 11:20) Patient Visit (04/17/18 ) Pt Eval Moderate Complexity (04/17/18 ) Functional Activities, Ea 15 (04/17/18 ) Patient Visit (04/17/18 ) Iron Test (Fe) (04/17/18 17:55) Patient Visit (04/18/18 ) Functional Activities, Ea 15 (04/18/18 ) Consent-Obtain Consent For (04/18/18 10:53) Preop Checklist (04/18/18 10:53) Mrsa Screen (Icu,Preop,Cath) (04/18/18 10:53) Cbc With Automated Diff (04/19/18 06:00) Comprehensive Metabolic Panel (04/19/18 06:00) Rehab Nursing Orders: Ongoing Assess. of Cognitive Status, Ongoing Assess. of Function Status, Bladder Management, Bladder Scan, Bladder Training, Bowel Management, Bowel Training, Disease Management & Educaiton, DVT Prophylaxis, Fall Prevention, Fluid/Electrolyte/Nutrition Mgmt, Medication Management & Education, Management of Risks & Complications, Management of Skin Intergrity, Nutrition Management, Pain Management, Patient/Family Support, Safety Management Intensity of Therapy to be met Patient to be seen: Min.3h per day/5 of 7d PT IPOC Problem List: Activity Tolerance, Functional Strength, Safety, Balance, Gait, Transfer, Bed Mobility Treatment Plan: Continue Plan of Care Bed Mobility, Education, Functional Activity Tania, Functional Strength, Group Therapy, Gait, Safety, Therapeutic Exercise, Transfers Treatment Duration: May 15, 2018 Frequency: At least 5 of 7 days/Wk (IRF) Estimated Hrs Per Day: 1.5 hours per day OT IPOC Problems: Decreased Activ Tolerance, Decreased Safety Aware, Decreased UE Strength, Dependent Transfers, Impaired Bed Mobility, Impaired Coordination, Impaired Funct Balance, Impaired I ADL's, Impaired Self-Care Skills, Restricted Funct UE ROM OT Treatment, Training and Edu: Yes OT Problems Pt to benefit from skilled OT intervention for ADL training, transfers, strengthening, and safety education to increase level of independence and allow safe discharge plan. Plan of Care: ADL Retraining Treatment Duration: May 08, 2018 Frequency: At least 5 of 7 days/Wk (IRF) Estimated Hrs Per Day: 1.[address] IPOC Speech Therapy Treatment Plan: Continue Plan of Care Treatment Duration: Apr 17, 2018 Frequency: 5 times per week Estimated Hrs Per Day: .25 hour per day Atm Technician/Case Mgmt Atm Technician/Case Managemen: Discharge Planning Dietitian/Digital Learning Platforms Manager Dietitian/Digital Learning Platforms Manager to monitor nutritional status and make changes and/or recommendations as needed and work with speech pathology on dietary upgrades as the occur. Physician IPOC Medical Issues being managed closely and that require the 24 hour availability of a physician: Major fall risk Right shoulder pain management Bowel and bladder dysfunction Respiratory status guarded Medical Issues: Bowel/Bladder Function, DVT Prophylaxis, Falls Precautions, Fluid/Electrolyte/Nutrition Balance, Infection Protection, Pain Management Brief Synthesis of Preadmission Screen, Post-Admission Evaluation, and Therapy Evaluations: PT and OT will provide intensive therapy while supporting right humerus fracture to help increase ambulation ST will work on cognition and memory Medical Prognosis: Good Anticipated Length of Stay: 14 days HILLARY BROWN DO Apr 18, 2018 11:15
--- NOTE | 2018-04-18 15:00 | NUR ---
DAUGHTER AT BEDSIDE AND DISCUSSED DR. CLIFTON DOING A CYSTO AT BEDSIDE ON FRIDAY OR FRIDAY. PATIENT DOES NOT HAVE A DPOA AND IS CONFUSED. DAUGHTER THINKS PATIENT'S WILL BE HERE TOMORROW AND CAN SIGN CONSENT OR NURSE WILL CALL HER TOMORROW FOR PHONE CONSENT.
[2018-04-18 16:27] VITALS: BP 103/65
--- NOTE | 2018-04-18 18:00 | NUR ---
HAS BEEN INCONTINENT X 6 THIS SHIFT OF SMALL AMOUNTS.
--- NOTE | 2018-04-18 19:08 | NUR ---
bedside report received from JUAN MANUEL Ribeiro RN, assume care of pt
[2018-04-18] MEDS: ALPRAZolam 0.25 MG (XANAX) TAB PO PRN (20:23)
[2018-04-18] MEDS: MONTELUKAST 10 MG (SINGULAIR) TAB PO SCH (20:23)
--- NOTE | 2018-04-18 20:23 | NUR ---
c/o pain to rt arm & back, level 10/10 on numeric scale, Lortab 7.5 1 tab po give & c/o anxiety & cough Xanax 0.25mg & Robitussin 10ml po given
[2018-04-18] MEDS: guaiFENesin/CODEINE (ROBITUSSIN AC) 10ML UDC PO PRN (20:24)
--- NOTE | 2018-04-18 20:24 | PM&R Progress Note ---
Subjective HPI/CC On Admission Date Seen by Provider: Apr 18, 2018 Time Seen by Provider: 10:00 CC: Critical illness myopathy w/metabolic encephalopathy HPI: This is a 77yoWM who was admitted to [facility] due to critical illness with acute renal failure of 3.7 and dislocated right shoulder with right proximal humerus fracture with sepsis and UTI. Patient was intubated for a short time for AECOPD and metabolic acidosis along with respiratory acidosis. Patient had multiple falls at his home 5 days prior to admit and [place] [facility] [place] and acute renal failure. Pt was thought to have meningitis but LP revealed no growth. UTI caused bacteremia and sepsis and patient was ultimately placed on Levaquin and will complete that treatment in 7 more days. Patient does have h/o bladder cancer and having urinary frequency so will consult Dr Quiñonez Urology. Patient usually sees [facility] in [place], [place] as his PCP due to serving in the [employer] for 12 years then serving as a [employer] for 40+ years. His new PCP will be Dr Lavonne Paul. Patient is a poor historian and has multiple chronic illnesses that will require extensive medical management in order to optimize prior to DC home. Subjective/Events-last exam Patient doing well overall Confusion noted and this could be an extension of his baseline Pain is controlled with pain meds right shoulder Minimal control over his bowels Cysto will be performed by Dr Quiñonez Friday or Friday since he has a h/o bladder cancer and had no f/u with him Increasing cues to help him Review of Systems General: Fatigue Pulmonary: Dyspnea Musculoskeletal: arm pain Objective Exam Vital Signs Vital Signs Date Time Temp Pulse Resp B/P (MAP) Pulse Ox O2 Delivery O2 Flow Rate FiO2 04/18/18 17:03 Nasal Cannula 2.00 04/18/18 16:27 97.1 85 14 103/65 (78) 100 Capillary Refill : Less Than 3 Seconds General Appearance: No Apparent Distress, WD/WN, Chronically ill, Obese Neck: Full Range of Motion, Normal Inspection, Non Tender, Supple Respiratory: Chest Non Tender, No Accessory Muscle Use, No Respiratory Distress , Crackles, Decreased Breath Sounds, Wheezing Cardiovascular: Regular Rate, Rhythm, No Edema, No Gallop, No JVD, No Murmur, Normal Peripheral Pulses Gastrointestinal: Normal Bowel Sounds, No Organomegaly, No Pulsatile Mass, Non Tender, Soft Back: Normal Inspection, No CVA Tenderness, No Vertebral Tenderness Extremity: Normal Capillary Refill, Normal Inspection, Normal Range of Motion ( except right arm), Non Tender, No Calf Tenderness, Other (weakness in all extremities) Neurologic/Psychiatric: Alert, Oriented x3, No Motor/Sensory Deficits, 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 Assessment/Plan Assessment and Plan Assess & Plan/Chief Complaint Assessment: s/p critical illness s/p sepsis Falls Confusion s/p ARF Severe anemia COPD s/p VDRF Right proximal humerus fracture in sling HTN HLP Poor nutrition status h/o bladder cancer Incontinence with frequency prompting Urology consultation Dementia at baseline? Plan: Check iron level when completed Pain control BM regimen Urology consultation Monitor closely melvin lung function Check labs tomorrow (1) Encephalopathy (2) History of sepsis (3) History of renal failure (4) Proximal humerus fracture (5) Abnormal albumin (6) History of bladder cancer (7) PTSD (post-traumatic stress disorder) (8) Hypertension (9) Skin cancer (10) UTI (urinary tract infection) (11) Wheezing (12) Incontinence of urine (13) Hyperlipemia (14) Confusion (15) Anemia (16) COPD (chronic obstructive pulmonary disease) Clinical Quality Measures DVT/VTE Risk/Contraindication: Risk Factor Score Per Nursin RFS Level Per Nursing on Admit: 4+=Very High HILLARY BROWN DO Apr 18, 2018 20:24
--- NOTE | 2018-04-18 20:30 | NUR ---
midline dressing change completed
--- NOTE | 2018-04-18 21:00 | NUR ---
assessments & interventions completed, see assessments & interventions rates pain at 8/10 on numeric scale, wanted to refuse Senokot stating not eating much to have BM advised still needs to take at least 1 Senokot to prevent constipation
--- NOTE | 2018-04-18 22:00 | NUR ---
have repositioned pt every 20 min pt not sure which side he wants to lie on or whether he wants head up or down & refuses to use bed controls himself or pickler helper cup to drink on own
[2018-04-19] MEDS: HYDROcodone/APAP 7.5 MG/325 MG (LORTAB, LORCET PLUS) TABLET PO PRN ×3 (01:59→21:16)
--- NOTE | 2018-04-19 01:59 | NUR ---
c/o pain to back & rt arm level 10/10 on numeric scale, Lortab 7.5 1 tab po given
--- NOTE | 2018-04-19 02:30 | NUR ---
resting quietly in bed, pain level 0/10 flacc scale
[2018-04-19 06:27] VITALS: BP 129/73
--- NOTE | 2018-04-19 07:00 | NUR ---
attens changed then out of bed with 2 person assist & cane needing alot of cueing to use good hand to use cane & use good hand to reach back for chair & not to set until feel the chair on back of legs
[2018-04-19] MEDS: PANTOPRAZOLE 40 MG (PROTONIX) TAB PO SCH ×2 (07:09→21:15)
[2018-04-19 07:33] LABS: BASOPHILS % (AUTO) 1 % (0-10); EOSINOPHILS # (AUTO) 0.2 10^3/uL (0.0-0.3); EOSINOPHILS % (AUTO) 2 % (0-10); HEMATOCRIT 25 % (40-54); HEMOGLOBIN 7.9 G/DL (13.3-17.7); LYMPHOCYTES # (AUTO) 1.8 X 10^3 (1.0-4.0); LYMPHOCYTES % (AUTO) 21 % (12-44); MEAN CORPUSCULAR HEMOGLOBIN 33 PG (25-34); MEAN CORPUSCULAR HGB CONC 32 G/DL (32-36); MEAN CORPUSCULAR VOLUME 103 FL (80-99); MEAN PLATELET VOLUME 9.3 FL (7.4-10.4); MONOCYTES # (AUTO) 1.2 X 10^3 (0.0-1.0); MONOCYTES % (AUTO) 15 % (0-12); NEUTROPHILS # (AUTO) 5.2 X 10^3 (1.8-7.8); NEUTROPHILS % (AUTO) 62 % (42-75); PLATELET COUNT 345 10^3/uL (130-400); RED CELL DISTRIBUTION WIDTH 12.2 % (10.0-14.5); WHITE BLOOD COUNT 8.5 10^3/uL (4.3-11.0)
--- NOTE | 2018-04-19 07:39 | NUR ---
bedside report given to RACHEL HERNANDEZ
[2018-04-19 07:53] LABS: ALANINE AMINOTRANSFERASE 28 U/L (0-55); ALBUMIN 2.9 GM/DL (3.2-4.5); ALKALINE PHOSPHATASE 77 U/L (40-136); BILIRUBIN,TOTAL 0.4 MG/DL (0.1-1.0); BUN/CREATININE RATIO 17; CALCIUM 9.4 MG/DL (8.5-10.1); CARBON DIOXIDE 26 MMOL/L (21-32); CHLORIDE 102 MMOL/L (98-107); CREATININE SERUM 0.87 MG/DL (0.60-1.30); GFR ESTIMATED > 60; GLUCOSE 97 MG/DL (70-105); POTASSIUM 3.9 MMOL/L (3.6-5.0); SODIUM 138 MMOL/L (135-145); TOTAL PROTEIN 6.4 GM/DL (6.4-8.2)
[2018-04-19] MEDS: RT-ALBUTEROL/IPRATROPIUM 3 ML (DUONEB) VIAL INH SCH ×3 (08:14→23:18)
[2018-04-19 08:42] VITALS: BP 111/68
[2018-04-19] MEDS: SENNA W/DOCUSATE (SENOKOT S) TABLET PO SCH ×2 (08:45→21:16)
[2018-04-19] MEDS: LORATADINE (CLARITIN) 10 MG TAB PO SCH (08:45)
[2018-04-19] MEDS: LEVOFLOXACIN 500 MG TAB (LEVAQUIN) PO SCH (08:45)
[2018-04-19] MEDS: amLODIPine 10 MG (NORVASC) TAB PO SCH (08:45)
[2018-04-19] MEDS: lisINopril 5 MG (PRINIVIL) TABLET PO SCH (08:45)
[2018-04-19] MEDS: LACTOBACILLUS ACIDOPHILUS (PROBIOTIC) CAPSULE PO SCH (08:45)
--- NOTE | 2018-04-19 10:28 | PM&R Progress Note ---
Subjective HPI/CC On Admission Date Seen by Provider: Apr 19, 2018 Time Seen by Provider: 10:30 CC: Critical illness myopathy w/metabolic encephalopathy HPI: This is a 77yoWM who was admitted to [facility] due to critical illness with acute renal failure of 3.7 and dislocated right shoulder with right proximal humerus fracture with sepsis and UTI. Patient was intubated for a short time for AECOPD and metabolic acidosis along with respiratory acidosis. Patient had multiple falls at his home 5 days prior to admit and [place] [facility] [place] and [place] failure. Pt was thought to have meningitis but LP revealed no growth. UTI caused bacteremia and sepsis and patient was ultimately placed on Levaquin and will complete that treatment in 7 more days. Patient does have h/o bladder cancer and having urinary frequency so will consult Dr Quiñonez Urology. Patient usually sees [facility] in [place], [place] as his PCP due to serving in the [employer] for 12 years then serving as a [employer] for 40+ years. His new PCP will be Dr Lavonne Paul. Patient is a poor historian and has multiple chronic illnesses that will require extensive medical management in order to optimize prior to DC home. Subjective/Events-last exam Patient doing well overall Confusion noted and this could be an extension of his baseline and it appears that it could preclude him from going home and may require NH placement Pain is controlled with pain meds right shoulder Minimal control over his bowels Cysto will be performed by Dr Quiñonez Friday or Friday since he has a h/o bladder cancer and had no f/u with him Increasing cues to help him Coarseness of his lungs continue Nebs ordered Review of Systems General: Fatigue Pulmonary: Dyspnea, Cough Musculoskeletal: arm pain Neurological: Confusion Objective Exam Vital Signs Vital Signs Date Time Temp Pulse Resp B/P (MAP) Pulse Ox O2 Delivery O2 Flow Rate FiO2 04/19/18 10:41 99 Nasal Cannula 2.00 04/19/18 09:25 86 20 04/19/18 08:42 111/68 (82) 04/19/18 06:27 98.9 Capillary Refill : Less Than 3 Seconds General Appearance: No Apparent Distress, WD/WN, Chronically ill, Obese Neck: Full Range of Motion, Normal Inspection, Non Tender, Supple Respiratory: Chest Non Tender, No Accessory Muscle Use, No Respiratory Distress , Crackles, Decreased Breath Sounds, Wheezing Cardiovascular: Regular Rate, Rhythm, No Edema, No Gallop, No JVD, No Murmur, Normal Peripheral Pulses Gastrointestinal: Normal Bowel Sounds, No Organomegaly, No Pulsatile Mass, Non Tender, Soft Back: Normal Inspection, No CVA Tenderness, No Vertebral Tenderness Extremity: Normal Capillary Refill, Normal Inspection, Normal Range of Motion ( except right arm), Non Tender, No Calf Tenderness, Other (weakness in all extremities) Neurologic/Psychiatric: Alert, Oriented x3, No Motor/Sensory Deficits, 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 Assessment/Plan Assessment and Plan Assess & Plan/Chief Complaint Assessment: s/p critical illness s/p sepsis Falls Confusion s/p ARF Severe anemia COPD s/p VDRF Right proximal humerus fracture in sling HTN HLP Poor nutrition status h/o bladder cancer Incontinence with frequency prompting Urology consultation Dementia at baseline? Plan: Check iron level when completed Pain control BM regimen Urology consultation Monitor closely melvin lung function Monitor labs periodically May need NH if can't improve with intensive therapies (1) Encephalopathy (2) History of sepsis (3) History of renal failure (4) Proximal humerus fracture (5) Abnormal albumin (6) History of bladder cancer (7) PTSD (post-traumatic stress disorder) (8) Hypertension (9) Skin cancer (10) UTI (urinary tract infection) (11) Wheezing (12) Incontinence of urine (13) Hyperlipemia (14) Confusion (15) Anemia (16) COPD (chronic obstructive pulmonary disease) Clinical Quality Measures DVT/VTE Risk/Contraindication: Risk Factor Score Per Nursin RFS Level Per Nursing on Admit: 4+=Very High HILLARY BROWN DO Apr 19, 2018 10:28
[2018-04-19] MEDS: IRON SUCROSE 200 MG/10 ML (VENOFER) VIAL IV SCH (10:56)
--- NOTE | 2018-04-19 10:57 | NUR ---
Patient is confused. Lungs are coarse. 02 at [address] per [address] Pinto to floor and notified of above. I/S at bedside and encouraged. Incontinent of urine. Turn Q2H and barrier cream to bottom.
--- NOTE | 2018-04-19 13:39 | Progress Note-Urology ---
Progress Note-Urology Progress Notes/Assess & Plan Progress/Assessment & Plan CYSTO TOMORROW OR FRIDAY DEPENDING ON OR SCHEDULE Final Diagnosis INCONTINENCE AND H/O BLADDER CA XOCHITL CLIFTON MD Apr 19, 2018 13:39
--- NOTE | 2018-04-19 15:27 | NUR ---
Up and down from bed to chair to wheelchair multiple times. Patient states that he "can't get comfortable". C/O lower back pain. Patient states that he has chronic pain. Lortab given. See eMAR for details.
[2018-04-19 16:10] VITALS: BP 112/72
--- NOTE | 2018-04-19 16:43 | NUR ---
Telephone consent for Cystoscopy (Friday or Friday) rec'd from patient's spouse, Charisse Beatty. 2nd witness MARY Skelton. Consent placed in chart.
--- NOTE | 2018-04-19 19:16 | NUR ---
bedside report received from RACHEL HERNANDEZ, assume care of pt
--- NOTE | 2018-04-19 21:00 | NUR ---
assessments & interventions completed, see assessments & interventions, IS encouraged q 1-2hrs, repositioned q 1-2hrs with hob elevated, inc of bladder changed freq
[2018-04-19] MEDS: ALPRAZolam 0.25 MG (XANAX) TAB PO PRN (21:15)
[2018-04-19] MEDS: guaiFENesin/CODEINE (ROBITUSSIN AC) 10ML UDC PO PRN ×2 (21:16→21:18)
[2018-04-19] MEDS: MONTELUKAST 10 MG (SINGULAIR) TAB PO SCH (21:16)
--- NOTE | 2018-04-19 21:16 | NUR ---
c/o back pain level 10/10 on numeric scale, Lortab 7.5 1 tab , xanax 0.25mg for anxiety & Robitussin 10ml for cough
--- NOTE | 2018-04-19 21:45 | NUR ---
resting quietly in bed, pain level 0/10 on flacc scale
[2018-04-20] MEDS: HYDROcodone/APAP 7.5 MG/325 MG (LORTAB, LORCET PLUS) TABLET PO PRN ×2 (02:04→20:19)
--- NOTE | 2018-04-20 02:04 | NUR ---
c/o back pain level 10/10 on numeric scale, Lortab 7.5 1 tab given
--- NOTE | 2018-04-20 02:45 | NUR ---
resting quietly in bed, pain level 0/10 on flacc scale
[2018-04-20 05:02] VITALS: BP 125/75
--- NOTE | 2018-04-20 06:40 | NUR ---
surgical bed bath given, fresh gown on
[2018-04-20] MEDS: PANTOPRAZOLE 40 MG (PROTONIX) TAB PO SCH ×2 (06:55→20:18)
--- NOTE | 2018-04-20 06:55 | NUR ---
up to chair with 2 people assist up & cane
[2018-04-20] MEDS: RT-ALBUTEROL/IPRATROPIUM 3 ML (DUONEB) VIAL INH SCH ×3 (07:00→22:08)
--- NOTE | 2018-04-20 07:14 | NUR ---
bedside report given to LLOYD HERNANDEZ
[2018-04-20] MEDS: LACTOBACILLUS ACIDOPHILUS (PROBIOTIC) CAPSULE PO SCH (08:38)
[2018-04-20] MEDS: SENNA W/DOCUSATE (SENOKOT S) TABLET PO SCH ×2 (08:38→20:18)
[2018-04-20] MEDS: LEVOFLOXACIN 500 MG TAB (LEVAQUIN) PO SCH (08:38)
[2018-04-20] MEDS: lisINopril 5 MG (PRINIVIL) TABLET PO SCH (08:38)
[2018-04-20] MEDS: LORATADINE (CLARITIN) 10 MG TAB PO SCH (08:38)
[2018-04-20] MEDS: amLODIPine 10 MG (NORVASC) TAB PO SCH (08:38)
--- NOTE | 2018-04-20 09:28 | PM&R Progress Note ---
Subjective HPI/CC On Admission Date Seen by Provider: Apr 20, 2018 Time Seen by Provider: 08:45 CC: Critical illness myopathy w/metabolic encephalopathy HPI: This is a 77yoWM who was admitted to [facility] due to critical illness with acute renal failure of 3.7 and dislocated right shoulder with right proximal humerus fracture with sepsis and UTI. Patient was intubated for a short time for AECOPD and metabolic acidosis along with respiratory acidosis. Patient had multiple falls at his home 5 days prior to admit and presented to [facility] with confusion and acute renal failure. Pt was thought to have meningitis but LP revealed no growth. UTI caused bacteremia and sepsis and patient was ultimately placed on Levaquin and will complete that treatment in 7 more days. Patient does have h/o bladder cancer and having urinary frequency so will consult Dr Quiñonez Urology. Patient usually sees [facility] in [place], [place] as his PCP due to serving in the [employer] for 12 years then serving as a [employer] for 40+ years. His new PCP will be Dr Lavonne Paul. Patient is a poor historian and has multiple chronic illnesses that will require extensive medical management in order to optimize prior to DC home. Subjective/Events-last exam Lungs are much improved today Difficult to do any type of activity on his own Subtle confusion and likely chronic dementia is precluding any significant participation in therapy which may preclude inpatient rehab to continue and may need a senior care placement Overall Pt appears to be much improved Hgb has actually increased a bit Iron is still pending at time of dictation Overall feels like he is doing better Pt does have a sense of humor about the whole situation Review of Systems General: Fatigue Pulmonary: Dyspnea Musculoskeletal: arm pain Neurological: Confusion Objective Exam Vital Signs Vital Signs Date Time Temp Pulse Resp B/P (MAP) Pulse Ox O2 Delivery O2 Flow Rate FiO2 04/21/18 09:00 99 Nasal Cannula 2.00 04/21/18 05:01 97.7 93 20 131/79 (96) Capillary Refill : Less Than 3 Seconds General Appearance: No Apparent Distress, WD/WN, Chronically ill, Obese Neck: Full Range of Motion, Normal Inspection, Non Tender, Supple Respiratory: Chest Non Tender, No Accessory Muscle Use, No Respiratory Distress , Crackles, Decreased Breath Sounds, Wheezing Cardiovascular: Regular Rate, Rhythm, No Edema, No Gallop, No JVD, No Murmur, Normal Peripheral Pulses Gastrointestinal: Normal Bowel Sounds, No Organomegaly, No Pulsatile Mass, Non Tender, Soft Back: Normal Inspection, No CVA Tenderness, No Vertebral Tenderness Extremity: Normal Capillary Refill, Normal Inspection, Normal Range of Motion ( except right arm), Non Tender, No Calf Tenderness, Other (weakness in all extremities) Neurologic/Psychiatric: Alert, Oriented x3, No Motor/Sensory Deficits, 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 Assessment/Plan Assessment and Plan Assess & Plan/Chief Complaint Assessment: s/p critical illness s/p sepsis Falls Confusion s/p ARF Severe anemia COPD s/p VDRF Right proximal humerus fracture in sling HTN HLP Poor nutrition status h/o bladder cancer Incontinence with frequency prompting Urology consultation Dementia at baseline? Plan: Check iron level when completed Pain control BM regimen Urology consultation and cysto this week Monitor closely melvin lung function Monitor labs periodically May need NH if can't improve with intensive therapies (1) Encephalopathy (2) History of sepsis (3) History of renal failure (4) Proximal humerus fracture (5) Abnormal albumin (6) History of bladder cancer (7) PTSD (post-traumatic stress disorder) (8) Hypertension (9) Skin cancer (10) UTI (urinary tract infection) (11) Wheezing (12) Incontinence of urine (13) Hyperlipemia (14) Confusion (15) Anemia (16) COPD (chronic obstructive pulmonary disease) Clinical Quality Measures DVT/VTE Risk/Contraindication: Risk Factor Score Per Nursin RFS Level Per Nursing on Admit: 4+=Very High HILLARY BROWN DO Apr 20, 2018 09:28
--- NOTE | 2018-04-20 09:31 | Progress Note-Urology ---
Progress Note-Urology Progress Notes/Assess & Plan Progress/Assessment & Plan CYSTOSCOPY TOMORROW DUE TO OR SCHEDULING Final Diagnosis INCONTINENCE AND H/O CA BLADDER XOCHITL CLIFTON MD Apr 20, 2018 09:31
--- NOTE | 2018-04-20 09:55 | Occupational Ther Daily Note ---
OT Current Status-Daily Note Subjective Pt. states that his right shoulder hurts, but does not state a pain number. Nursing has given him pain medication. Appearance Pt. up in chair. Agrees to work with therapy. Mental Status/Objective Therapy Code Descriptions/Definitions Functional [place] Measure: 0=Not Assessed/NA 4=Minimal Assistance 1=Total Assistance 5=Supervision or Setup 2=Maximal Assistance 6=Modified [place] 3=Moderate Assistance 7=Complete [place] Attachments: IV, Oxygen ADL-Treatment Therapy Code Descriptions/Definitions Functional [place] Measure: 0=Not Assessed/NA 4=Minimal Assistance 1=Total Assistance 5=Supervision or Setup 2=Maximal Assistance 6=Modified [place] 3=Moderate Assistance 7=Complete [place] Therapy Quality Codes: 6 Independent with activity with or without an assistive device 5 Patient requires set up or clean up by helper. Patient completes activity by themselves 4 Supervision or touching assist (CGA). [place] provide cues , steadying assist 3 The helper provides less than half the effort to complete the activity 2 The helper provides more than half the effort to complete the activity 1 Dependent. The helper does all the effort to complete an activity 7 Patient refused to complete or attempt activity 9 The patient did not perform the activity before the current illness or injury 88 Not attempted due to Medical conditions or safety concerns Bathing (FIM): 1 (See note) Shower/Bathe Self (QC): 1 Upper Body (FIM): 1 Upper Body Dressing (QC): 1 Lower Body Dressing (FIM): 1 Lower Body Dressing (QC): 1 On/Off Footwear (QC): 1 Toileting (FIM): 1 Toileting Hygiene (QC): 1 Transfers (B, C, W/C) (FIM): 1 Toilet/Commode Transfer (FIM): 1 Toilet Transfer (QC): 1 Other Treatment Pt. up in chair. Agrees to spongebathe. Pt. requires cues to participate, as pt. will allow OT to do all tasks for him. Pt. requires dependent assistance to doff/don UE/LE clothing. Pt. requires max/dependent assistance to stand. In stance, pt. is retropulsive. OT did have another person to come in and assist in stance. Pt. is educated to attempt moving right hand to decrease swelling. Pt. is given hand therapy sponge. Pt. does attempt to wash chest, but only "dabs" at it and requires increase encouragement to do more for self. Pt. declines putting in dentures or oral care. All needs are met up in chair with sling on for shoulder support. Education OT Patient Education: Correct positioning, Exercise program, Modified ADL techniques, Progress toward Goal/Update tx plan, Purpose of tx/functional activities, Reviewed precautions, Rehab process, Transfer techniques Teaching Recipient: Patient Teaching Methods: Demonstration, Discussion Response to Teaching: Verbalize Understanding, Return Demonstration OT Short Term Goals Short Term Goals Time Frame: Apr 24, 2018 Eating(FIM): 5 Grooming(FIM): 5 Bathing(FIM): 3 Upper Body Dressing(FIM): 3 Lower Body Dressing(FIM): 2 Toileting(FIM): 3 Toilet/Commode Transfer(FIM): 4 Shower Transfer(FIM): 3 Additional Short Term Goals: 1-Demonstrate ADL Tasks, 2-Verbalize Understanding , 3-ImproveStrength/Tania 1=Demonstrate adherence to instructed precautions during ADL tasks. 2=Patient will verbalize/demonstrate understanding of assistive devices/ modifications for ADL. 3=Patient will improve strength/tolerance for activity to enable patient to perform ADL's. OT Chcf Goals Chcf Goals Time Frame: May 08, 2018 Eating (FIM): 5 Eating (QC): 5 Groomin Oral Hygiene (QC): 5 Bathing(FIM): 4 Shower/Bathe Self (QC): 4 Upper Body Dressing(FIM): 5 Upper Body Dressing (QC): 5 Lower Body Dressing(FIM): 5 Lower Body Dressing (QC): 5 On/Off Footwear (QC): 5 Toileting(FIM): 5 Toileting Hygiene (QC): 5 Toilet/Commode Transfer(FIM): 5 Toilet/Commode Transfer (QC): 5 Shower Transfer(FIM): 5 Additional Goals: 1-Demonstrate ADL Tasks, 2-Verbalize Understanding, 3- ImproveStrength/Tania 1=Demonstrate adherence to instructed precautions during ADL tasks. 2=Patient will verbalize/demonstrate understanding of assistive devices/ modifications for ADL. 3=Patient will improve strength/tolerance for activity to enable patient to perform ADL's. OT Education/Plan Problem List/Assessment Assessment: Decreased Activ Tolerance, Decreased Safety Aware, Decreased UE Strength, Dependent Transfers, Edema, Impaired Bed Mobility, Impaired Cognition , Impaired Coordination, Impaired Funct Balance, Impaired I ADL's, Impaired Self -Care Skills, Restricted Funct UE ROM Pt to benefit from skilled OT intervention for ADL training, transfers, strengthening, and safety education to increase level of independence and allow safe discharge plan. Discharge Recommendations Plan/Recommendations: Continue POC Therapy D/C Recommendations: 24 hr Supervision Treatment Plan/Plan of Care Treatment,Training & Education: Yes Patient would benefit from OT for education, treatment and training to promote independence in ADL's, mobility, safety and/or upper extremity function for ADL' s. Plan of Care: ADL Retraining Treatment Duration: May 08, 2018 Frequency: At least 5 of 7 days/Wk (IRF) Estimated Hrs Per Day: 1.5 hours per day Rehab Potential: Fair Time/GCodes Start Time: 08:30 Stop Time: 09:30 Total Time Billed (hr/min): 60 Billed Treatment Time 1, ADL x 4 SHAHANA GUZMAN OT Apr 20, 2018 09:55
--- NOTE | 2018-04-20 10:58 | Physical Therapy Daily Note ---
PT Daily Note-Current Subjective Patient in recliner pre tx, agrees to PT, has no complaints of pain at rest. Has sling on right arm. Appearance Patient in bed post tx with nurse call, phone, tray, bed alarm on. Right arm on pillow support. Mental Status Patient Orientation: Person, Confused Attachments: Oxygen Transfers Therapy Code Descriptions/Definitions Functional [place] Measure: 0=Not Assessed/NA 4=Minimal Assistance 1=Total Assistance 5=Supervision or Setup 2=Maximal Assistance 6=Modified [place] 3=Moderate Assistance 7=Complete [place] Therapy Quality Codes: 6 Independent with activity with or without an assistive device 5 Patient requires set up or clean up by helper. Patient completes activity by themselves 4 Supervision or touching assist (CGA). [place] provide cues , steadying assist 3 The helper provides less than half the effort to complete the activity 2 The helper provides more than half the effort to complete the activity 1 Dependent. The helper does all the effort to complete an activity 7 Patient refused to complete or attempt activity 9 The patient did not perform the activity before the current illness or injury 88 Not attempted due to Medical conditions or safety concerns Transfers (B, C, W/C) (FIM): 1 Scootin Rollin Supine to/from Sit: 1 Sit to/from Stand: 2 Bed to/from Chair: 2 Patient is retropulsive after standing, shuffling steps when turning to sit, cues for hand placement with every transfer, patient does not flex at the hips or knees when sitting. Weight Bearing NWB right UE; pt presents in a sling. Gait Training Gait (FIM): 2 Distance: 120' Gait Level of Assist: 2 Gait Persons Needed: 2 Gait Assistive Device: Handheld Assist Patient has a shuffling gait, poor foot clearance, retropulsive and leans to the right side. Wheelchair Training Does the Pt Use a Wheelchair?: Yes Wheelchair (FIM): 1 Distance: 120' Wheelchair Level of Assist: 1 Type of Wheelchair: Manual Attempted to get patient to assist with his legs and left arm but he didn't really participate. Exercises NuStep Minutes: 8 NuStep Workload: 4 Treatments bed mobility and transfers, ambulation, wheelchair mobility, functional strengthening, patient was also toileted once for a BM Assessment Current Status: Poor Progress Patient has poor participation, poor motivation, self-limits movement, retropulsive, poor balance. Patient is a high fall risk. PT Short Term Goals Short Term Goals Time Frame: May 01, 2018 Gait (FIM): 4 Distance (FIM): 3=150 ft Gait Assistive Device: Cane Small Base Quad PT Mcc Goals Water Analyst Goals PT Water Analyst Goals Time Frame: May 15, 2018 Transfers (B,C,W/C) (FIM): 6 Sit to Lying (QC): 6 Lying-Sitting on Side/Bed(QC): 6 Sit to Stand (QC): 6 Rollin Roll Left to Right (QC): 6 Chair/Ond-fc-Betie Xfer(QC): 6 Car Transfer (QC): 6 Does the Patient Walk: Yes Gait (FIM): 6 Gait distance (FIM): 3=150 ft Walk 10 feet (QC): 6 Walk 10ft-Uneven Surface(QC): 6 Walk 50ft with 2 Turns (QC): 6 Walk 150 ft (QC): 6 Gait Assistive Device: Cane Small Base Quad Does the Pt use WC or Scooter?: No Stairs (FIM): 5 # of Steps: 4 (household level) 1 Step (curb) (QC): 6 4 Steps (QC): 6 12 Steps (QC): 88 Stairs Level Of Assist: 6 Picking up an Object (QC): 5 PT Plan Problem List Problem List: Activity Tolerance, Functional Strength, Safety, Balance, Gait, Transfer, Bed Mobility, ROM Treatment/Plan Treatment Plan: Continue Plan of Care Treatment Plan: Bed Mobility, Education, Functional Activity Tania, Functional Strength, Group Therapy, Gait, Safety, Therapeutic Exercise, Transfers Treatment Duration: May 15, 2018 Frequency: At least 5 of 7 days/Wk (IRF) Estimated Hrs Per Day: 1.5 hours per day Patient and/or Family Agrees t: Yes Safety Risks/Education Patient Education: Gait Training, Transfer Techniques, Correct Positioning, Safety Issues Teaching Recipient: Patient Teaching Methods: Demonstration, Discussion Response to Teaching: Reinforcement Needed Time/GCodes Time In: 1000 Time Out: 1100 Total Billed Treatment Time: 60 Total Billed Treatment 1 visit [facility] 15' GT 10' FA 35' ROSA ISELA FONTANA PT Apr 20, 2018 10:58
--- NOTE | 2018-04-20 11:41 | NUR ---
SETTER AUTOMATIC SPINNING LATHE met with patient and spouse to complete initial assessment; however, information was primarily obtained from spouse as patient was experiencing confusion. Patient resides with spouse in a two level home in [place]; however, the couple primarily only utilizes the main level. The has a ramp at the entrance. The home is equipped with tall toilets, wide doorways and grab bars. The couple also possesses a SPC and Quad Cane. Patient admitted to ARU from [facility] with metabolic encephalopathy. Per spouse, patient fell at home in the beginning of Apr and fractured his R humerus and dislocated R shoulder, patient also became dehydrated, acquired a UTI and acute renal failure. Spouse reports decline in cognition beginning in Apr. Prior to fall, patient was independent with ambulation and self care. Primary contact identified as spouse, Charisse at [phone] and secondary contacts as daughter, Melody ([phone]). Charisse is retired and has physical aliments that limit her ability to provide physical support to patient (use of walker for all activities), Melody works chuck tender as an RT at [employer]. Prior to ARU admission, family requested admission to [place] [facility] unit; however, due to current low functionality, patient was denied for SB placement. If patient is not safe to return home at ARU discharge, family would prefer patient admit to [place] [facility] if criteria is met, otherwise, patient was previously accepted at [facility]. PCP verified as Dr. Brian Alston at [facility]; however, spouse is reaching out to Dr. Lavonne Paul to establish local PCP for patient. Patient has [facility] and utilizes prescriptions by mail from [place] or [place] in [place] for local pharmacy needs. SETTER AUTOMATIC SPINNING LATHE reviewed typical rehab length of stay and weekly team conferences with patient and spouse, they expressed no concerns. SETTER AUTOMATIC SPINNING LATHE will follow for appropriate discharge needs.
--- NOTE | 2018-04-20 14:12 | ST Cognitive Linguistic Eval ---
Speech Evaluation-General Medical Diagnosis acute metabolic encephalopathy Onset Date: Apr 17, 2018 Therapy Diagnosis Therapy Diagnosis: Cognitive-Communication Precautions Precautions/Isolations: Fall Prevention, Standard Precautions, Pressure Ulcer Medical History Pertinent Medical History: COPD Reviewed History: Yes Social History Current Living Status: Spouse Speech PLF-Current Status Prior Level of Function Prior to hospitalization the patient lived at home with his spouse. He was independent with most of his daily needs at that time. Subjective Patient was pleasant and attentive during the evaluation process. Language Eval: Auditory Comprehends Simple Yes/No Ques: Functional Indent/Objects Multiple Cade: Functional Ident/Pics in Multiple Cade: Functional Follows 1-Step Commands: Functional Follows Complex Directions: Mild Follows General Conversations: Mild Language Eval: Verbal Language Completes Spontaneous Greeting: Functional Produces Auto, Serial Info: Functional Imitates Simple Words/Phrases: Functional Word Finding: Mild Requests Basic Needs: Mild States Basic Personal Info: Functional Expresses Complex Ideas: Moderate Cognitive Patient Orientation Oriented to most concepts. Objective Cognitive Domain Attention: WNL Memory: Mild Problem Solving: Mild Executive Functions: Moderate Objective Formal/Standardized Tests [facility] Cognitive/Communication Results Memory: Immediate 3/3, Delayed with cues 1/3, Orientation: 4/5, Problem Solving : Simple 5/5, Complex 3/5, Auditory Comprehension: 3/5 Oral Motor/Speech Production Within Functional Limits Impression Patient is a pleasant 77 year old male who was admitted to the ARU following a fall. The patient has multiple diagnosis's which appear to be causing him to have an overall decline in function. Patient completed the evaluation process with deficits noted in the memory, problem solving and safety areas. Communication/Social Cognition Comprehension: 4 Expression: 5 Social Interaction: 5 Problem Solvin Memory: 4 Speech Patient Assess Expression of Ideas/Wants: Exhibits (3) Understanding Verbal Content: Usually Understands (3) Brief Interview-Mental Status: Yes Repetition of Three Words: Three (3) Temporal Orientation: Year: Correct (3) Temporal Orientation: Month: Accurate within 5 days(2) Temporal Orientation: Day: Correct (1) Recall : Wear to say "Sock": Yes, no cue required (2) Recall : Color: No, could not recall (0) Recall : Bed: No, could not recall (0) Memory/Recall Ability: Current season, That he or she is in a hsp/hsp unit Speech Short Term Goals Short Term Goals Short Term Goals 1) Patient will complete memory tasks with 80% or greater with minimal cues. 2) Patient will complete problem solving tasks with 80% or greater with minimal cues. 3) Patient will follow directions for increased safety to meet his personal daily needs at 80% or greater with minimal cues. Speech Longterm Goals Barbecue Cook Goals Patient will improve his overall level of safety and independence to return to his prior level of functioning. Speech-Plan Patient/Family Goals Patient/Family Goals: Patient plans to return home with his post rehab. Treatment Plan Speech Therapy Treatment Plan: Continue Plan of Care Patient is expected to progress with skilled ST intervention. Treatment Duration: Apr 24, 2018 Frequency: 5 times per week Estimated Hrs Per Day: .25 hour per day Rehab Potential: Fair Barriers to Learning: Patient has multiple medical diagnosis's. Pt/Family Agrees to Plan: Yes Safety Risks/Education Teaching Recipient: Patient Teaching Methods: Discussion Response to Teaching: Verbalize Understanding Education Topics Provided: Safety within his room. Time Speech Therapy Time In: 08:15 Speech Therapy Time Out: 08:30 Total Billed Time: 15 Billed Treatment Time 1, SPSNDISATU Bhatt Apr 20, 2018 14:12
--- NOTE | 2018-04-20 14:34 | Therapy Group Daily Note ---
Therapy Daily Group Note Patient Education Topic Other List Below (memory) Exercises LE Seated Exercise, UE Exercise Other/Notes Pt participated in group therapy with 3 to 1 ratio. Goals of Session: Acknowledges understanding of memory strategies for daily use , met. Participated in UE/LE seated exercises to increase strength for functional tasks, met. OT/PT group consisted of introductions (name, place, UE strengthening to choose question), socialization, educational topics (memory strategies) and seated UE/ LE exercises. Pt introduced self appropriately and actively listened to peers. Pt contributed to discussions and contributed to conversations with peers after encouragement. Pt was able to demonstrate good L UE and B LE movement during exercises. Pt able to demonstrate good memory skills with memory activity. Pt will benefit from group by using resources and topics discussed to improve awareness and memory. Pt benefits by being independent and increasing strength in B UE's. After therapy, pt transported via w/c back to room and laid in bed. Call light/phone in reach. All needs met in room. Start Time: 13:00 Stop Time: 14:05 Total Billed Treatment Time: 65 Total Billed Treatment 1-GRP NADIA ALVAREZ Apr 20, 2018 14:34
[2018-04-20 16:40] VITALS: BP 122/77
[2018-04-20] MEDS: MONTELUKAST 10 MG (SINGULAIR) TAB PO SCH (20:18)
[2018-04-21] MEDS: ALPRAZolam 0.25 MG (XANAX) TAB PO PRN (01:10)
[2018-04-21] MEDS: HYDROcodone/APAP 7.5 MG/325 MG (LORTAB, LORCET PLUS) TABLET PO PRN ×3 (01:10→18:00)
[2018-04-21 05:01] VITALS: BP 131/79
[2018-04-21] MEDS: PANTOPRAZOLE 40 MG (PROTONIX) TAB PO SCH ×2 (06:51→20:20)
--- NOTE | 2018-04-21 07:07 | Progress Note-Pre Operative ---
Pre-Operative Progress Note H&P Reviewed The H&P was reviewed, patient examined and no changes noted. Date Seen by Provider: Apr 21, 2018 Time Seen by Provider: 07:06 Date H&P Reviewed: Apr 21, 2018 Time H&P Reviewed: 07:06 Pre-Operative Diagnosis: INCONTINENCE AND HISTORY OF BLADDER CANCER XOCHITL CLIFTON MD Apr 21, 2018 07:07
--- NOTE | 2018-04-21 07:08 | Progress Note-Post Operative ---
Post-Operative Progess Note Surgeon (s)/Peer Health Promoter (s) Surgeon XOCHITL CLIFTON MD Peer Health Promoter: NONE Pre-Operative Diagnosis INCONTINENCE AND HISTORY OF BLADDER CANCER Post-Operative Diagnosis SAME Procedure & Operative Findings Date of Procedure 04/21/18 Procedure Performed/Findings CYSTOSCOPY Anesthesia Type GENERAL Estimated Blood Loss Estimated blood loss (mL): NONE Specimens/Packing Specimens Removed NONE Packing: NONE XOCHITL CLIFTON MD Apr 21, 2018 07:08
[2018-04-21] MEDS: RT-ALBUTEROL/IPRATROPIUM 3 ML (DUONEB) VIAL INH SCH ×3 (07:40→21:56)
--- NOTE | 2018-04-21 07:54 | NUR ---
Assisted x 2 to bedside chair. Pt requires assist with set for meals. Opening packages and cartons. Does better with finger foods. Drank 100% of ensure. Call light in reach. Will cont to monitor. Denies pain. Will give pain medication prior to therapy
[2018-04-21] MEDS ORDERED: LIDOCAINE UROJET 2% GEL 10 ML PKG ONE (08:00)
[2018-04-21] MEDS ORDERED: BUPIVACAINE 0.5% 30 ML (SENSORCAINE) VIAL ONE (08:25)
[2018-04-21] MEDS: IRON SUCROSE 200 MG/10 ML (VENOFER) VIAL IV SCH (08:29)
[2018-04-21] MEDS: LEVOFLOXACIN 500 MG TAB (LEVAQUIN) PO SCH (08:30)
[2018-04-21] MEDS: SENNA W/DOCUSATE (SENOKOT S) TABLET PO SCH ×2 (08:30→20:50)
[2018-04-21] MEDS: LACTOBACILLUS ACIDOPHILUS (PROBIOTIC) CAPSULE PO SCH (08:30)
[2018-04-21] MEDS: LORATADINE (CLARITIN) 10 MG TAB PO SCH (08:30)
[2018-04-21] MEDS: amLODIPine 10 MG (NORVASC) TAB PO SCH (08:30)
[2018-04-21] MEDS: lisINopril 5 MG (PRINIVIL) TABLET PO SCH (08:30)
--- NOTE | 2018-04-21 08:40 | Progress Note-Post Operative ---
Post-Operative Progess Note Surgeon (s)/Children'S Entertainer (s) Surgeon XOCHITL CLIFTON MD Children'S Entertainer: NONE Pre-Operative Diagnosis INCONTINENCE AND HISTORY OF BLADDER CANCER Post-Operative Diagnosis SAME AND BPH Procedure & Operative Findings Date of Procedure 04/21/18 Procedure Performed/Findings CYSTOSCOPY Anesthesia Type LOCAL Estimated Blood Loss Estimated blood loss (mL): NONE Specimens/Packing Specimens Removed NONE Packing: NONE XOCHITL CLIFTON MD Apr 21, 2018 08:40
--- NOTE | 2018-04-21 08:49 | PM&R Progress Note ---
Subjective HPI/CC On Admission Date Seen by Provider: Apr 21, 2018 Time Seen by Provider: 09:00 CC: Critical illness myopathy w/metabolic encephalopathy HPI: This is a 77yoWM who was admitted to [facility] due to critical illness with acute renal failure of 3.7 and dislocated right shoulder with right proximal humerus fracture with sepsis and UTI. Patient was intubated for a short time for AECOPD and metabolic acidosis along with respiratory acidosis. Patient had multiple falls at his home 5 days prior to admit and presented to [facility] with confusion and acute renal failure. Pt was thought to have meningitis but LP revealed no growth. UTI caused bacteremia and sepsis and patient was ultimately placed on Levaquin and will complete that treatment in 7 more days. Patient does have h/o bladder cancer and having urinary frequency so will consult Dr Quiñonez Urology. [facility] [place], [place] as his PCP due to serving in the [employer] for 12 years then serving as a [employer] for 40+ years. His new PCP will be Dr Lavonne Paul. Patient is a poor historian and has multiple chronic illnesses that will require extensive medical management in order to optimize prior to DC home. Subjective/Events-last exam Cystoscopy completed today by urology and no significant abnormality considering he had a history of bladder cancer. Iron level was 25 and Pt will maintain on Venofer that I already ordered, 200 mg IV every other day for 5 doses. He yells out a lot and does have pain but any additional pain medication is going to cause more confusion. Pt appears to be slightly more lucid today which is encouraging. Unsure if he will be able to maintain inpatient rehab or go straight to a skilled nursing or swing bed at [facility], will discuss in team meeting tomorrow. Review of Systems General: Fatigue Pulmonary: Dyspnea, Cough Musculoskeletal: arm pain Neurological: Confusion Objective Exam Vital Signs Vital Signs Date Time Temp Pulse Resp B/P (MAP) Pulse Ox O2 Delivery O2 Flow Rate FiO2 04/21/18 18:00 99.2 73 20 127/81 (96) 96 Nasal Cannula 2.00 Capillary Refill : Less Than 3 Seconds General Appearance: No Apparent Distress, WD/WN, Chronically ill, Obese Neck: Full Range of Motion, Normal Inspection, Non Tender, Supple Respiratory: Chest Non Tender, No Accessory Muscle Use, No Respiratory Distress , Crackles, Decreased Breath Sounds, Wheezing Cardiovascular: Regular Rate, Rhythm, No Edema, No Gallop, No JVD, No Murmur, Normal Peripheral Pulses Gastrointestinal: Normal Bowel Sounds, No Organomegaly, No Pulsatile Mass, Non Tender, Soft Back: Normal Inspection, No CVA Tenderness, No Vertebral Tenderness Extremity: Normal Capillary Refill, Normal Inspection, Normal Range of Motion ( except right arm), Non Tender, No Calf Tenderness, Other (weakness in all extremities) Neurologic/Psychiatric: Alert, Oriented x3, No Motor/Sensory Deficits, electronic security specialist II- XII Norm as Tested, Depressed Affect, Disoriented, Other (generalized motor weakness) Skin: Normal Color, Warm/Dry Lymphatic: No Adenopathy Results/Procedures Lab Patient resulted labs reviewed. Assessment/Plan Assessment and Plan Assess & Plan/Chief Complaint Assessment: s/p critical illness s/p sepsis Falls Confusion s/p ARF Severe anemia iron deficiency type receiving Venofer iron infusions COPD s/p VDRF Right proximal humerus fracture in sling HTN HLP Poor nutrition status h/o bladder cancer Incontinence with frequency prompting Urology consultation who completed cysto and it was normal Dementia at baseline? Plan: Iron level 25 confirmed low so empirically treated already with IV iron infusions Pain control BM regimen Urology consultation is appreciated Monitor closely melvin lung function Monitor labs periodically May need NH if can't improve with intensive therapies (1) Encephalopathy (2) History of sepsis (3) History of renal failure (4) Proximal humerus fracture (5) Abnormal albumin (6) History of bladder cancer (7) PTSD (post-traumatic stress disorder) (8) Hypertension (9) Skin cancer (10) UTI (urinary tract infection) (11) Wheezing (12) Incontinence of urine (13) Hyperlipemia (14) Confusion (15) Anemia (16) COPD (chronic obstructive pulmonary disease) Clinical Quality Measures DVT/VTE Risk/Contraindication: Risk Factor Score Per Nursin RFS Level Per Nursing on Admit: 4+=Very High HILLARY BROWN DO Apr 21, 2018 08:49
--- NOTE | 2018-04-21 10:14 | Physical Therapy Daily Note ---
PT Daily Note-Current Subjective Pt laying Supine in bed upon arrival. Pt agrees to PT & OT co-treat due to debility and weakness at this time. Pain Location: No Pain Reported Mental Status Patient Orientation: Person, Place, Situation Attachments: Oxygen (3L) Transfers Therapy Code Descriptions/Definitions Functional [place] Measure: 0=Not Assessed/NA 4=Minimal Assistance 1=Total Assistance 5=Supervision or Setup 2=Maximal Assistance 6=Modified [place] 3=Moderate Assistance 7=Complete [place] Therapy Quality Codes: 6 Independent with activity with or without an assistive device 5 Patient requires set up or clean up by helper. Patient completes activity by themselves 4 Supervision or touching assist (CGA). Myrtle provide cues , steadying assist 3 The helper provides less than half the effort to complete the activity 2 The helper provides more than half the effort to complete the activity 1 Dependent. The helper does all the effort to complete an activity 7 Patient refused to complete or attempt activity 9 The patient did not perform the activity before the current illness or injury 88 Not attempted due to Medical conditions or safety concerns Scootin Rollin Roll Left to Right (QC): 2 Supine to/from Sit: 2 Sit to/from Stand: 2 Sit to Lying (QC): 2 Sit to Stand (QC): 2 Chair/Ske-ao-Qhnhw Xfer(QC): 2 Bed to/from Chair: 2 Weight Bearing Right Lower Extremity: Right Full Weight Bearing Left Lower Extremity: Left Full Weight Bearing NWB right UE; pt presents in a sling. Gait Training Does the Patient Walk?: Yes Distance (FIM): 3=150 ft Distance: 150' Walk 10 feet (QC): 2 Walk 50 ft with 2 Turns(QC): 2 Walk 150 ft (QC): 2 Gait Level of Assist: 2 Gait Persons Needed: 1 Gait Assistive Device: Handheld Assist Pt walks with slow ailyn and very retropulsive. This improves when pt takes REGIONAL ADMINISTRATIVE ASSISTANT hand and is led to encourage advancing, decrease retropulsivity. Wheelchair Training Does the Pt Use a Wheelchair?: Yes Wheelchair Distance: 1=up to 49 ft Distance: 10' Wheelchair Level of Assist: 2 Type of Wheelchair: Manual Exercises Seated Therapy Exercises: Sit to stand Treatments REGIONAL ADMINISTRATIVE ASSISTANT co-treats with OT to assist pt with ADLs including showering and dressing. Pt has trouble controlling bowels during tx, several times having to stop for BM. Pt transfers from shower chair to W/C. Pt ambulates in hallway with BUSINESS INVESTOR of REGIONAL ADMINISTRATIVE ASSISTANT with rest breaks in W/C as needed. Pt returns to room to rest in recliner with all needs met at end of tx. OT works on ADLs and hand placements and PT works on transfers, sitting and standing balance as well as ambulation. Assessment Pt demonstrates a lack of motivation to complete tasks independently. Pt needs encouragement to attempt tasks. Pt reports not knowing he having a BM until he is in the middle of it. PT Short Term Goals Short Term Goals Time Frame: May 01, 2018 Gait (FIM): 4 Distance (FIM): 3=150 ft Gait Assistive Device: Cane Small Base Quad Wheelchair Distance: 120' PT Soap Inspector Goals Fpc Goals PT Fpc Goals Time Frame: May 15, 2018 Transfers (B,C,W/C) (FIM): 6 Sit to Lying (QC): 6 Lying-Sitting on Side/Bed(QC): 6 Sit to Stand (QC): 6 Rollin Roll Left to Right (QC): 6 Chair/Ikg-ie-Dqpme Xfer(QC): 6 Car Transfer (QC): 6 Does the Patient Walk: Yes Gait (FIM): 6 Gait distance (FIM): 3=150 ft Walk 10 feet (QC): 6 Walk 10ft-Uneven Surface(QC): 6 Walk 50ft with 2 Turns (QC): 6 Walk 150 ft (QC): 6 Gait Assistive Device: Cane Small Base Quad Does the Pt use WC or Scooter?: No Stairs (FIM): 5 # of Steps: 4 (household level) 1 Step (curb) (QC): 6 4 Steps (QC): 6 12 Steps (QC): 88 Stairs Level Of Assist: 6 Picking up an Object (QC): 5 PT Plan Problem List Problem List: Activity Tolerance, Functional Strength, Safety, Balance, Gait, Transfer, Bed Mobility Treatment/Plan Treatment Plan: Continue Plan of Care Treatment Plan: Bed Mobility, Education, Functional Activity Tania, Functional Strength, Group Therapy, Gait, Safety, Therapeutic Exercise, Transfers Treatment Duration: May 15, 2018 Frequency: At least 5 of 7 days/Wk (IRF) Estimated Hrs Per Day: 1.5 hours per day Patient and/or Family Agrees t: Yes Safety Risks/Education Patient Education: Gait Training, Transfer Techniques, Correct Positioning, W/ C Management, Disease Process, Safety Issues Teaching Recipient: Patient Teaching Methods: Demonstration, Discussion Response to Teaching: Reinforcement Needed Time/GCodes Time In: 900 Time Out: 1015 Total Billed Treatment Time: 75 Total Billed Treatment 1, FA x3 (45m) & GT x2 (30m) G Codes Necessary: LLOYD Seo PTA Apr 21, 2018 10:14
--- NOTE | 2018-04-21 10:45 | NUR ---
Pastoral care visit.
--- NOTE | 2018-04-21 12:06 | Occupational Ther Daily Note ---
OT Current Status-Daily Note Subjective Pt. does not report pain level. Appearance Pt. is in bed. Agrees to work with therapy. Mental Status/Objective Patient Orientation: Person Therapy Code Descriptions/Definitions Functional [place] Measure: 0=Not Assessed/NA 4=Minimal Assistance 1=Total Assistance 5=Supervision or Setup 2=Maximal Assistance 6=Modified [place] 3=Moderate Assistance 7=Complete [place] Attachments: IV, Oxygen ADL-Treatment Therapy Code Descriptions/Definitions Functional [place] Measure: 0=Not Assessed/NA 4=Minimal Assistance 1=Total Assistance 5=Supervision or Setup 2=Maximal Assistance 6=Modified [place] 3=Moderate Assistance 7=Complete [place] Therapy Quality Codes: 6 Independent with activity with or without an assistive device 5 Patient requires set up or clean up by helper. Patient completes activity by themselves 4 Supervision or touching assist (CGA). [place] provide cues , steadying assist 3 The helper provides less than half the effort to complete the activity 2 The helper provides more than half the effort to complete the activity 1 Dependent. The helper does all the effort to complete an activity 7 Patient refused to complete or attempt activity 9 The patient did not perform the activity before the current illness or injury 88 Not attempted due to Medical conditions or safety concerns Bathing (FIM): 1 Shower/Bathe Self (QC): 1 Upper Body (FIM): 1 Upper Body Dressing (QC): 1 Lower Body Dressing (FIM): 1 Lower Body Dressing (QC): 1 On/Off Footwear (QC): 1 Toileting (FIM): 1 Toileting Hygiene (QC): 1 Transfers (B, C, W/C) (FIM): 1 Toilet/Commode Transfer (FIM): 1 Toilet Transfer (QC): 1 Shower Transfer(FIM): 1 Other Treatment OT/PT co-treat due to pt's level of ability. OT focused on ADL treatment while PT focused on transfer training. Pt. transferred supine-sit with max x 2. Sat EOB and stood with retropulsive movement and lean to right. Transferred to shower chair. OT gently removed shoulder sling. Pt. is encouraged to attempt to remove his own shirt. Pt. does attempt, but does not initiate past attempting. Overall, pt. requires dependent assist to remove, don clothing, and bathe all parts. Pt. requires max encouragement to do for self. Transferred back to wheelchair after showering on shower chair. Went to therapy area and worked on ambulation. Pt. is retropulsive at first and keeps feet together. With cues and prompting, eventually was able to ambulate with one person assist and another person with wheelchair and oxygen. Please see PT note for distance ambulated. Transferred back to chair in room. All needs met. Education OT Patient Education: Correct positioning, Modified ADL techniques, Progress toward Goal/Update tx plan, Purpose of tx/functional activities, Reviewed precautions, Rehab process, Transfer techniques Teaching Recipient: Patient Teaching Methods: Demonstration, Discussion Response to Teaching: Verbalize Understanding, Return Demonstration OT Short Term Goals Short Term Goals Time Frame: Apr 24, 2018 Eating(FIM): 5 Grooming(FIM): 5 Bathing(FIM): 3 Upper Body Dressing(FIM): 3 Lower Body Dressing(FIM): 2 Toileting(FIM): 3 Toilet/Commode Transfer(FIM): 4 Shower Transfer(FIM): 3 Additional Short Term Goals: 1-Demonstrate ADL Tasks, 2-Verbalize Understanding , 3-ImproveStrength/Tania 1=Demonstrate adherence to instructed precautions during ADL tasks. 2=Patient will verbalize/demonstrate understanding of assistive devices/ modifications for ADL. 3=Patient will improve strength/tolerance for activity to enable patient to perform ADL's. OT Childcare Aide Goals Childcare Aide Goals Time Frame: May 08, 2018 Eating (FIM): 5 Eating (QC): 5 Groomin Oral Hygiene (QC): 5 Bathing(FIM): 4 Shower/Bathe Self (QC): 4 Upper Body Dressing(FIM): 5 Upper Body Dressing (QC): 5 Lower Body Dressing(FIM): 5 Lower Body Dressing (QC): 5 On/Off Footwear (QC): 5 Toileting(FIM): 5 Toileting Hygiene (QC): 5 Toilet/Commode Transfer(FIM): 5 Toilet/Commode Transfer (QC): 5 Shower Transfer(FIM): 5 Additional Goals: 1-Demonstrate ADL Tasks, 2-Verbalize Understanding, 3- ImproveStrength/Tania 1=Demonstrate adherence to instructed precautions during ADL tasks. 2=Patient will verbalize/demonstrate understanding of assistive devices/ modifications for ADL. 3=Patient will improve strength/tolerance for activity to enable patient to perform ADL's. OT Education/Plan Problem List/Assessment Assessment: Decreased Activ Tolerance, Decreased Safety Aware, Decreased UE Strength, Dependent Transfers, Impaired Bed Mobility, Impaired Cognition, Impaired Coordination, Impaired Funct Balance, Impaired I ADL's, Impaired Self- Care Skills, Restricted Funct UE ROM Pt to benefit from skilled OT intervention for ADL training, transfers, strengthening, and safety education to increase level of independence and allow safe discharge plan. Discharge Recommendations Plan/Recommendations: Continue POC Therapy D/C Recommendations: 24 hr Supervision Treatment Plan/Plan of Care Treatment,Training & Education: Yes Patient would benefit from OT for education, treatment and training to promote independence in ADL's, mobility, safety and/or upper extremity function for ADL' s. Plan of Care: ADL Retraining, Functional Mobility, Group Exercise/Act as Ind, UE Funct Exercise/Act Treatment Duration: May 08, 2018 Frequency: At least 5 of 7 days/Wk (IRF) Estimated Hrs Per Day: 1.5 hours per day Agreement: Yes Rehab Potential: Fair Time/GCodes Start Time: 08:45 Stop Time: 10:00 Total Time Billed (hr/min): 75 Billed Treatment Time 1, ADL x 45minutes, FA x 30minutes SHAHANA GUZMAN OT Apr 21, 2018 12:06
--- NOTE | 2018-04-21 12:09 | OPERATIVE REPORT ---
DATE OF SERVICE: 04/21/2018 PREOPERATIVE DIAGNOSES: Urinary incontinence and history of bladder tumor. POSTOPERATIVE DIAGNOSES: Urinary incontinence and history of bladder tumor as well as BPH. OPERATION PERFORMED: Cystoscopy. SURGEON: Juan Francisco Clifton MD. ANESTHESIA: Local. COMPLICATIONS: None. DESCRIPTION OF PROCEDURE: With the patient supine in his bed, the genitalia were prepped and draped in the usual sterile fashion. Urethra was infiltrated with 2% lidocaine jelly. Penile clamp was applied. This was then removed and a flexible cystoscope was introduced under vision. Anterior urethra was normal. The prostate revealed some enlargement with bladder neck obstruction, 4+ trabeculation and cellules. No bladder tumor was visualized. No foreign body and no stones. Ureteral orifices with clear efflux. Cystoscopy was confirmed in antegrade fashion and the cystoscope was removed. The patient tolerated the procedure and anesthesia well and was sent to recovery room in stable condition. PLAN: We will check postvoid residual on him today to determine the next step of using anticholinergic for now. We will start him on Flomax 0.4 mg daily. This was fully explained to the patient. Job ID: [id number] DocumentID: [id number] Dictated Date: 04/21/2018 08:42:35 Senior Mechanical Project Manager Date: 04/21/2018 12:08:51 Dictated By: JUAN FRANCISCO CLIFTON MD
--- NOTE | 2018-04-21 14:08 | Speech Therapy Daily Note ---
Speech Daily Progress Note Subjective Date Seen by Provider: Apr 21, 2018 Time Seen by Provider: 00:30 Patient is very confused today and required frequent redirections/repetitions. Objective Patient completed memory tasks at 50% with maximum cuing needed. Assessment Assessment Current Status: Poor Progress Treatment Plan Continue Plan of Care Communication Comprehension: 4 Expression: 5 Social Cognition Social Interaction: 5 Problem Solvin Memory: 4 Speech Short Term Goals Short Term Goals Short Term Goals 1) Patient will complete memory tasks with 80% or greater with minimal cues. 2) Patient will complete problem solving tasks with 80% or greater with minimal cues. 3) Patient will follow directions for increased safety to meet his personal daily needs at 80% or greater with minimal cues. Speech Half-Way Goals Professor Of Vegetable Science Goals Patient will improve his overall level of safety and independence to return to his prior level of functioning. Speech-Plan Patient/Family Goals Patient/Family Goals: Patient plans to return home to live with his , however due to the patient's current level of progress it may not be the best plan for his safety and well being. Treatment Plan Speech Therapy Treatment Plan: Continue Plan of Care Patient has great difficulty in retention of any information related to himself and safety. Treatment Duration: Apr 24, 2018 Frequency: 5 times per week Estimated Hrs Per Day: .25 hour per day Rehab Potential: Fair Barriers to Learning: Moderate dementia Pt/Family Agrees to Plan: Yes Safety Risks/Education Teaching Recipient: Patient, Primary Caregiver Teaching Methods: Discussion Response to Teaching: Verbalize Understanding Education Topics Provided: Safety and utilization of the nurse call button. Time Speech Therapy Time In: 11:00 Speech Therapy Time Out: 11:30 Total Billed Time: 30 Billed Treatment Time 1G[address] Apr 21, 2018 14:08
--- NOTE | 2018-04-21 15:18 | Physical Therapy Daily Note ---
PT Daily Note-Current Subjective Pt in recliner and requests to use urinal. Pt agrees to PT assistance. Mental Status Patient Orientation: Person Attachments: Oxygen (3L) Transfers Therapy Code Descriptions/Definitions Functional [place] Measure: 0=Not Assessed/NA 4=Minimal Assistance 1=Total Assistance 5=Supervision or Setup 2=Maximal Assistance 6=Modified [place] 3=Moderate Assistance 7=Complete [place] Therapy Quality Codes: 6 Independent with activity with or without an assistive device 5 Patient requires set up or clean up by helper. Patient completes activity by themselves 4 Supervision or touching assist (CGA). [place] provide cues , steadying assist 3 The helper provides less than half the effort to complete the activity 2 The helper provides more than half the effort to complete the activity 1 Dependent. The helper does all the effort to complete an activity 7 Patient refused to complete or attempt activity 9 The patient did not perform the activity before the current illness or injury 88 Not attempted due to Medical conditions or safety concerns Transfers (B, C, W/C) (FIM): 1 Supine to/from Sit: 1 Sit to/from Stand: 4 Sit to Lying (QC): 1 Sit to Stand (QC): 4 sit to stand transfer training with skilled verbal instruction x 8 trials with patient initiating x 4 attempts with demonstration of retropulsion with PT correction. Weight Bearing Right Lower Extremity: Right Full Weight Bearing Left Lower Extremity: Left Full Weight Bearing NWB right UE; pt presents in a sling. Gait Training Does the Patient Walk?: Yes Gait (FIM): 2 Distance (FIM): 7=525-97 ft Distance: 75' x 4 Walk 10 feet (QC): 4 Walk 50 ft with 2 Turns(QC): 4 Gait Level of Assist: 4 Gait Persons Needed: 1 Gait Assistive Device: FWW short step length, shuffle pattern, tends to demonstrate retropulsion Assessment Current Status: Fair Progress Pt is min A sit<>stand from chairs. Pt requires max A with bathroom skills. Pt able to amb 75' x 4 with min A using PT hand with L UE for forward manual cue. Pt amb a total of 300' all together during tx. Pt needs recovery periods due to fatigue and SOA. Pt was assist 2x with bathroom skills and 1x with dressing max A. Pt required dependent A x2 for EOB to supine in bed. Pt requires VC and manual cues of L UE during transfers for safety. Pt is in bed with all needs met. Pts O2 was at 4L during tx. PT Short Term Goals Short Term Goals Time Frame: May 01, 2018 Gait (FIM): 4 Distance (FIM): 3=150 ft Gait Assistive Device: Cane Small Base Quad Wheelchair Distance: 10' PT Plant Operator Control Room Operator Goals Long-Term Goals PT Plant Operator Control Room Operator Goals Time Frame: May 15, 2018 Transfers (B,C,W/C) (FIM): 6 Sit to Lying (QC): 6 Lying-Sitting on Side/Bed(QC): 6 Sit to Stand (QC): 6 Rollin Roll Left to Right (QC): 6 Chair/Ixd-qc-Wjimh Xfer(QC): 6 Car Transfer (QC): 6 Does the Patient Walk: Yes Gait (FIM): 6 Gait distance (FIM): 3=150 ft Walk 10 feet (QC): 6 Walk 10ft-Uneven Surface(QC): 6 Walk 50ft with 2 Turns (QC): 6 Walk 150 ft (QC): 6 Gait Assistive Device: Cane Small Base Quad Does the Pt use WC or Scooter?: No Stairs (FIM): 5 # of Steps: 4 (household level) 1 Step (curb) (QC): 6 4 Steps (QC): 6 12 Steps (QC): 88 Stairs Level Of Assist: 6 Picking up an Object (QC): 5 PT Plan Problem List Problem List: Activity Tolerance, Functional Strength, Safety, Balance, Gait, Transfer, Bed Mobility, ROM Treatment/Plan Treatment Plan: Continue Plan of Care Treatment Plan: Bed Mobility, Education, Functional Activity Tania, Functional Strength, Group Therapy, Gait, Safety, Therapeutic Exercise, Transfers Treatment Duration: May 15, 2018 Frequency: At least 5 of 7 days/Wk (IRF) Estimated Hrs Per Day: 1.5 hours per day Patient and/or Family Agrees t: Yes Safety Risks/Education Patient Education: Gait Training, Transfer Techniques, Correct Positioning, Safety Issues Teaching Recipient: Patient Teaching Methods: Demonstration, Discussion Time/GCodes Time In: 1400 Time Out: 1500 Total Billed Treatment Time: 60 Total Billed Treatment 1 visit GT x2 30 min FA x2 30 min ANDRE EASLEY PT Apr 21, 2018 15:18
[2018-04-21 18:00] VITALS: BP 127/81
[2018-04-21] MEDS: TAMSULOSIN 0.4 MG (FLOMAX) CAP PO SCH (18:00)
[2018-04-21] MEDS: TOLTERODINE LA 4 MG (DETROL) CAP PO SCH (20:20)
[2018-04-21] MEDS: MELATONIN 3 MG TABLET PO PRN (20:20)
[2018-04-21] MEDS: MONTELUKAST 10 MG (SINGULAIR) TAB PO SCH (20:20)
[2018-04-22 06:01] VITALS: BP 106/58
[2018-04-22] MEDS: PANTOPRAZOLE 40 MG (PROTONIX) TAB PO SCH ×2 (06:21→20:45)
[2018-04-22] MEDS: RT-ALBUTEROL/IPRATROPIUM 3 ML (DUONEB) VIAL INH SCH ×3 (06:46→21:26)
[2018-04-22 08:00] VITALS: BP 105/69
--- NOTE | 2018-04-22 08:32 | PM&R Progress Note ---
Subjective HPI/CC On Admission Date Seen by Provider: Apr 22, 2018 Time Seen by Provider: 08:30 CC: Critical illness myopathy w/metabolic encephalopathy HPI: This is a 77yoWM who was [facility] due to critical illness with acute renal failure of 3.7 and dislocated right shoulder with right proximal humerus fracture with sepsis and UTI. Patient was intubated for a short time for AECOPD and metabolic acidosis along with respiratory acidosis. Patient had multiple falls at his home 5 days prior to admit and presented to [facility] with confusion and acute renal failure. Pt was thought to have meningitis but LP revealed no growth. UTI caused bacteremia and sepsis and patient was ultimately placed on Levaquin and will complete that treatment in 7 more days. Patient does have h/o bladder cancer and having urinary frequency so will consult Dr Quiñonez Urology. [facility] [place], [place] as his PCP due to serving in the [employer] for 12 years then serving as a [employer] for 40+ years. His new PCP will be Dr Lavonne Paul. Patient is a poor historian and has multiple chronic illnesses that will require extensive medical management in order to optimize prior to DC home. Subjective/Events-last exam Confusion is really dependent on the time of day Participating with therapies with a lot of cues Detrol and Flomax are on board after the cystoscopy was normal but incontinence continues Memory loss is baseline and precludes a fast recovery so will recheck him Review of Systems General: Fatigue Pulmonary: Dyspnea, Cough Musculoskeletal: arm pain Neurological: Confusion Objective Exam Vital Signs Vital Signs Date Time Temp Pulse Resp B/P (MAP) Pulse Ox O2 Delivery O2 Flow Rate FiO2 04/22/18 19:06 97.8 100 20 83/54 (64) 95 Nasal Cannula 2.00 Capillary Refill : Less Than 3 Seconds General Appearance: No Apparent Distress, WD/WN, Chronically ill, Obese Neck: Full Range of Motion, Normal Inspection, Non Tender, Supple Respiratory: Chest Non Tender, No Accessory Muscle Use, No Respiratory Distress , Crackles, Decreased Breath Sounds, Wheezing Cardiovascular: Regular Rate, Rhythm, No Edema, No Gallop, No JVD, No Murmur, Normal Peripheral Pulses Gastrointestinal: Normal Bowel Sounds, No Organomegaly, No Pulsatile Mass, Non Tender, Soft Back: Normal Inspection, No CVA Tenderness, No Vertebral Tenderness Extremity: Normal Capillary Refill, Normal Inspection, Normal Range of Motion ( except right arm), Non Tender, No Calf Tenderness, Other (weakness in all extremities) Neurologic/Psychiatric: Alert, Oriented x3, No Motor/Sensory Deficits, bullet maker II- XII Norm as Tested, Depressed Affect, Disoriented, Other (generalized motor weakness) Skin: Normal Color, Warm/Dry Lymphatic: No Adenopathy Results/Procedures Lab Laboratory Tests 04/22/18 20:00 Patient resulted labs reviewed. Assessment/Plan Assessment and Plan Assess & Plan/Chief Complaint Assessment: s/p critical illness s/p sepsis Falls Confusion s/p ARF Severe anemia iron deficiency type receiving Venofer iron infusions COPD s/p VDRF Right proximal humerus fracture in sling HTN HLP Poor nutrition status h/o bladder cancer Incontinence with frequency prompting Urology consultation who completed cysto and it was normal Dementia at baseline? Plan: Iron level 25 confirmed low so empirically treated already with IV iron infusions Pain control BM regimen Urology consultation is appreciated Monitor closely melvin lung function Monitor labs periodically May need NH if can't improve with intensive therapies (1) Encephalopathy (2) History of sepsis (3) History of renal failure (4) Proximal humerus fracture (5) Abnormal albumin (6) History of bladder cancer (7) PTSD (post-traumatic stress disorder) (8) Hypertension (9) Skin cancer (10) UTI (urinary tract infection) (11) Wheezing (12) Incontinence of urine (13) Hyperlipemia (14) Confusion (15) Anemia (16) COPD (chronic obstructive pulmonary disease) Clinical Quality Measures DVT/VTE Risk/Contraindication: Risk Factor Score Per Nursin RFS Level Per Nursing on Admit: 4+=Very High HILLARY BROWN DO Apr 22, 2018 08:32
[2018-04-22] MEDS: LORATADINE (CLARITIN) 10 MG TAB PO SCH (08:33)
[2018-04-22] MEDS: SENNA W/DOCUSATE (SENOKOT S) TABLET PO SCH ×2 (08:33→20:56)
[2018-04-22] MEDS: LEVOFLOXACIN 500 MG TAB (LEVAQUIN) PO SCH (08:33)
[2018-04-22] MEDS: lisINopril 5 MG (PRINIVIL) TABLET PO SCH (08:34)
[2018-04-22] MEDS: amLODIPine 10 MG (NORVASC) TAB PO SCH (08:34)
[2018-04-22] MEDS: LACTOBACILLUS ACIDOPHILUS (PROBIOTIC) CAPSULE PO SCH (08:41)
--- NOTE | 2018-04-22 10:01 | Physical Therapy Daily Note ---
PT Daily Note-Current Subjective Pt. cooperative for most part but needs repeated explanation for some endeavors. Pt. is jovial and likes to visit . Difficult to understand at times Pain Numeric Pain Scale: 3 Location: Medial Location Body Site: Back (low) Pain Description: Ache Mental Status Patient Orientation: Person, Confused, Mumbles Attachments: Other-See Comments (sling RUE) Transfers Therapy Code Descriptions/Definitions Functional [place] Measure: 0=Not Assessed/NA 4=Minimal Assistance 1=Total Assistance 5=Supervision or Setup 2=Maximal Assistance 6=Modified [place] 3=Moderate Assistance 7=Complete [place] Therapy Quality Codes: 6 Independent with activity with or without an assistive device 5 Patient requires set up or clean up by helper. Patient completes activity by themselves 4 Supervision or touching assist (CGA). [place] provide cues , steadying assist 3 The helper provides less than half the effort to complete the activity 2 The helper provides more than half the effort to complete the activity 1 Dependent. The helper does all the effort to complete an activity 7 Patient refused to complete or attempt activity 9 The patient did not perform the activity before the current illness or injury 88 Not attempted due to Medical conditions or safety concerns Transfers (B, C, W/C) (FIM): 3 Scootin Sit to/from Stand: 4 Bed to/from Chair: 3 pt. sit to stand by pulling up at bar vs pushing up from chair arms with greater indep Weight Bearing Right Lower Extremity: Right Full Weight Bearing Left Lower Extremity: Left Full Weight Bearing NWB right UE; pt presents in a sling. Gait Training Does the Patient Walk?: Yes Gait (FIM): 2 Distance (FIM): 4=661-40 ft (60ft, 15x3) Gait Level of Assist: 4 Gait Persons Needed: 1 Gait Assistive Device: Handheld Assist (and at rail in hallway) Pt. initially retropulsive at stance but improved with repeated bouts of gait and standing. Needs assist of w/c to follow Wheelchair Training Does the Pt Use a Wheelchair?: Yes Wheelchair (FIM): 2 Wheelchair Distance: 7=886-92 ft (50) Wheelchair Level of Assist: 2 Type of Wheelchair: Manual pt. uses feet on floor and needs instruction as well as some assist to brake w/c Exercises Seated Therapy Exercises: Ankle pumps, Sit to stand, Long arc quads, Hip flexion, Kicking activity, Hip abd/add Seated Reps: 12 (x2) Treatments emphasis on sit to stand and standing balance, swayed for and back as well as side to side for stability prior to gait. Pt. in recliner after Rx with alarm and call carty insitu Assessment Current Status: Good Progress more functional today. Pt. with cognitive deficit but did follow commands this date PT Short Term Goals Short Term Goals Time Frame: May 01, 2018 Gait (FIM): 4 Distance (FIM): 3=150 ft Gait Assistive Device: Cane Small Base Quad Wheelchair Distance: 10' PT Probation And Parole Officer Goals Long-Term Goals PT Long-Term Goals Time Frame: May 15, 2018 Transfers (B,C,W/C) (FIM): 6 Sit to Lying (QC): 6 Lying-Sitting on Side/Bed(QC): 6 Sit to Stand (QC): 6 Rollin Roll Left to Right (QC): 6 Chair/Mcd-xn-Sxkmo Xfer(QC): 6 Car Transfer (QC): 6 Does the Patient Walk: Yes Gait (FIM): 6 Gait distance (FIM): 3=150 ft Walk 10 feet (QC): 6 Walk 10ft-Uneven Surface(QC): 6 Walk 50ft with 2 Turns (QC): 6 Walk 150 ft (QC): 6 Gait Assistive Device: Cane Small Base Quad Does the Pt use WC or Scooter?: No Stairs (FIM): 5 # of Steps: 4 (household level) 1 Step (curb) (QC): 6 4 Steps (QC): 6 12 Steps (QC): 88 Stairs Level Of Assist: 6 Picking up an Object (QC): 5 PT Plan Treatment/Plan Treatment Plan: Continue Plan of Care Treatment Plan: Bed Mobility, Education, Functional Activity Tania, Functional Strength, Group Therapy, Gait, Safety, Therapeutic Exercise, Transfers Treatment Duration: May 15, 2018 Frequency: At least 5 of 7 days/Wk (IRF) Estimated Hrs Per Day: 1.5 hours per day Patient and/or Family Agrees t: Yes Safety Risks/Education Patient Education: Gait Training, Transfer Techniques, Correct Positioning, W/ C Management, Disease Process, Safety Issues Teaching Recipient: Patient Teaching Methods: Demonstration, Discussion Response to Teaching: Verbalize Understanding, Return Demonstration, Reinforcement Needed Time/GCodes Time In: 845 Time Out: 1000 Total Billed Treatment Time: 75 Total Billed Treatment 1,GT15m,EX15m,WC15m,FA25m G Codes Necessary: JAIME Brenner LABOR EMPLOYMENT ASSOCIATE Apr 22, 2018 10:01
[2018-04-22] MEDS: RT-ALBUTEROL/IPRATROPIUM 3 ML (DUONEB) VIAL INH PRN (10:57)
--- NOTE | 2018-04-22 11:13 | Occupational Ther Daily Note ---
OT Current Status-Daily Note Subjective No pain reported. Appearance Pt. up in chair. Agrees to work with therapy. Mental Status/Objective Patient Orientation: Person Therapy Code Descriptions/Definitions Functional [place] Measure: 0=Not Assessed/NA 4=Minimal Assistance 1=Total Assistance 5=Supervision or Setup 2=Maximal Assistance 6=Modified [place] 3=Moderate Assistance 7=Complete [place] ADL-Treatment Therapy Code Descriptions/Definitions Functional [place] Measure: 0=Not Assessed/NA 4=Minimal Assistance 1=Total Assistance 5=Supervision or Setup 2=Maximal Assistance 6=Modified [place] 3=Moderate Assistance 7=Complete [place] Therapy Quality Codes: 6 Independent with activity with or without an assistive device 5 Patient requires set up or clean up by helper. Patient completes activity by themselves 4 Supervision or touching assist (CGA). [place] provide cues , steadying assist 3 The helper provides less than half the effort to complete the activity 2 The helper provides more than half the effort to complete the activity 1 Dependent. The helper does all the effort to complete an activity 7 Patient refused to complete or attempt activity 9 The patient did not perform the activity before the current illness or injury 88 Not attempted due to Medical conditions or safety concerns Lower Body Dressing (FIM): 1 Lower Body Dressing (QC): 1 Toileting (FIM): 2 Toileting Hygiene (QC): 2 Transfers (B, C, W/C) (FIM): 2 Toilet/Commode Transfer (FIM): 2 Toilet Transfer (QC): 2 Other Treatment Pt. up in chair. OT enters room at first for initiation of ADL treatment. PT came in at different time to work towards ambulation, mobility, transfers, and overall exercises. Pt. is in shirt and has sling on. Has clean depend on and SILAS hose, slipper socks. Pt. agrees to don pants. OT gives pt. pants but pt. is unable to initiate putting them on. Pt. barely moves left hand to hold them , and then once holding them, does not initiate putting them on. Pt. has to be given very specific cues and encouragement to attempt to don pants. Wiggles feet but does not attempt to bend toward them, nor cross legs. OT dons pants for him. Stands at chair with max x 2 while OT pulls pants up. Pt. is encouraged to sit back down. Very stiff and unable to dissociate movements, such as bend hips/knees. Leans backward with stiff joints. Pt. is finally able to sit with max cues and assist. OT attempted to stand again with one person and quad cane. Unable to manuever this so OT stood in front of pt. and was able to assist him with max assist and cues. Transferred to wheelchair. Pt. encouraged to self propel wheelchair in hallway. Max cues and WICHITA assist to move feet and use left arm to assist in propulsion. PT came at this point to assist with co-treat due to weakness and fatigue/need for two skilled therapists. Went to railing in hallway and able to take steps x 2 x approximately 12 feet with max cues and by holding railing on left side. After this, went to gym and completed 3 left UE exercises x 10 reps in all planes. Alternated with LE exercises with PT instruction. At this point, PT took over treatment and all needs met. Education OT Patient Education: Correct positioning, Modified ADL techniques, Progress toward Goal/Update tx plan, Purpose of tx/functional activities, Reviewed precautions, Rehab process, Transfer techniques Teaching Recipient: Patient Teaching Methods: Demonstration, Discussion Response to Teaching: Verbalize Understanding, Return Demonstration OT Short Term Goals Short Term Goals Time Frame: Apr 24, 2018 Eating(FIM): 5 Grooming(FIM): 5 Bathing(FIM): 3 Upper Body Dressing(FIM): 3 Lower Body Dressing(FIM): 2 Toileting(FIM): 3 Toilet/Commode Transfer(FIM): 4 Shower Transfer(FIM): 3 Additional Short Term Goals: 1-Demonstrate ADL Tasks, 2-Verbalize Understanding , 3-ImproveStrength/Tania 1=Demonstrate adherence to instructed precautions during ADL tasks. 2=Patient will verbalize/demonstrate understanding of assistive devices/ modifications for ADL. 3=Patient will improve strength/tolerance for activity to enable patient to perform ADL's. OT Half-Way Goals Half-Way Goals Time Frame: May 08, 2018 Eating (FIM): 5 Eating (QC): 5 Groomin Oral Hygiene (QC): 5 Bathing(FIM): 4 Shower/Bathe Self (QC): 4 Upper Body Dressing(FIM): 5 Upper Body Dressing (QC): 5 Lower Body Dressing(FIM): 5 Lower Body Dressing (QC): 5 On/Off Footwear (QC): 5 Toileting(FIM): 5 Toileting Hygiene (QC): 5 Toilet/Commode Transfer(FIM): 5 Toilet/Commode Transfer (QC): 5 Shower Transfer(FIM): 5 Additional Goals: 1-Demonstrate ADL Tasks, 2-Verbalize Understanding, 3- ImproveStrength/Tania 1=Demonstrate adherence to instructed precautions during ADL tasks. 2=Patient will verbalize/demonstrate understanding of assistive devices/ modifications for ADL. 3=Patient will improve strength/tolerance for activity to enable patient to perform ADL's. OT Education/Plan Problem List/Assessment Assessment: Decreased Activ Tolerance, Decreased UE Strength, Dependent Transfers, Impaired Bed Mobility, Impaired Cognition, Impaired Coordination, Impaired Funct Balance, Impaired I ADL's, Impaired Self-Care Skills, Restricted Funct UE ROM Pt to benefit from skilled OT intervention for ADL training, transfers, strengthening, and safety education to increase level of independence and allow safe discharge plan. Discharge Recommendations Plan/Recommendations: Continue POC Therapy D/C Recommendations: 24 hr Supervision Treatment Plan/Plan of Care Treatment,Training & Education: Yes Patient would benefit from OT for education, treatment and training to promote independence in ADL's, mobility, safety and/or upper extremity function for ADL' s. Plan of Care: ADL Retraining, Functional Mobility, Group Exercise/Act as Ind, UE Funct Exercise/Act Treatment Duration: May 08, 2018 Frequency: At least 5 of 7 days/Wk (IRF) Estimated Hrs Per Day: 1.5 hours per day Agreement: Yes Rehab Potential: Fair Time/GCodes Start Time: 08:30 Stop Time: 09:45 Total Time Billed (hr/min): 75 Billed Treatment Time 1, ADL x 30minutes, FA x 45minutes SHAHANA GUZMAN OT Apr 22, 2018 11:13
--- NOTE | 2018-04-22 11:50 | Speech Therapy Daily Note ---
Speech Daily Progress Note Subjective Date Seen by Provider: Apr 22, 2018 Time Seen by Provider: 00:30 Patient c/o sliding down in his chair and needing pulled up when I entered the room. Nurses came in and pulled him up after the call button was activated. Objective Patient answered questions related to his daily needs with 60% accuracy given mod to max verbal cues and repetitions. Assessment Assessment Current Status: Poor Progress Communication Comprehension: 4 Expression: 5 Social Cognition Social Interaction: 5 Problem Solvin Memory: 4 Speech Short Term Goals Short Term Goals Short Term Goals 1) Patient will complete memory tasks with 80% or greater with minimal cues. 2) Patient will complete problem solving tasks with 80% or greater with minimal cues. 3) Patient will follow directions for increased safety to meet his personal daily needs at 80% or greater with minimal cues. Speech Household Appliance Repairer Goals Intermediate Goals Patient will improve his overall level of safety and independence to return to his prior level of functioning. Speech-Plan Patient/Family Goals Patient/Family Goals: Patient plans to return home post rehab. Treatment Plan Speech Therapy Treatment Plan: Continue Plan of Care Patient is making fair progress as a result of skilled ST services. Treatment Duration: Apr 30, 2018 Frequency: 5 times per week Estimated Hrs Per Day: .25 hour per day Rehab Potential: Fair Barriers to Learning: Moderate dementia. Pt/Family Agrees to Plan: Yes Safety Risks/Education Teaching Recipient: Patient Teaching Methods: Discussion Response to Teaching: Verbalize Understanding Education Topics Provided: Safety and utilization of his call button. Time Speech Therapy Time In: 10:30 Speech Therapy Time Out: 11:00 Total Billed Time: 30 Billed Treatment Time [address] ST Apr 22, 2018 11:50
--- NOTE | 2018-04-22 15:00 | NUR ---
This shift, pt urine output 20ml. Bladder scan reveals 105ml. RN encourage pt to increase fluid intake.
--- NOTE | 2018-04-22 15:44 | NUR ---
Due to patients cognitive deficits and short term memory recall challenges, TECHNICAL MARKETING ENGINEER contacted patients spouse to review Team Conference Summary. As patient continues to require dependent assistance with all therapy activities and memory deficits, team has recommended progress re-evaluation at next team conference on 04/29. Team is concerned with discharge plans as baseline cognitive impairments may not warrant physical progress; therefore, patient may be more appropriate for SNF level of care at discharge. Spouse is agreeable for re-evaluation. Spouse has requested information regarding [facility] coverage for home care services or superintendent marine [employer] care services, TECHNICAL MARKETING ENGINEER will reach out to patients [facility] team for further direction. TECHNICAL MARKETING ENGINEER will continue to follow for discharge planning needs.
--- NOTE | 2018-04-22 16:25 | NUR ---
patients sat on 1.5 L was 93%; O2 was removed for 60 mins and O2 sat was 90% on RA; patient was walked - started on RA and he walked for 3 mins and his O2 sat started to go down to 88% and went as low as 85% and O2 was placed on patient and it took 3 L NC to keep O2 sat up to and above 90% Addendum: 04/23/18 at 0939 by SKINNY MORRIS RT Charted on wrong patient - disregard note
[2018-04-22] MEDS: TAMSULOSIN 0.4 MG (FLOMAX) CAP PO SCH (17:12)
[2018-04-22 19:06] VITALS: BP 83/54
--- NOTE | 2018-04-22 19:30 | NUR ---
Straight cathed patient using sterile technique. Obtained 60 ml dark tea colored urine. Patient tolerated well. Dr. Pinto notified. Addendum: 04/23/18 at 0039 by BRIDGET MORAN RN Order to draw a BMP stat
--- NOTE | 2018-04-22 19:35 | NUR ---
Dr. Pinto notified of BP 83/54 and Total urine output 75cc this shift with bladder scan of 72cc. Order received to hold blood pressure meds in AM on 04/23 and to straight cath patient and call her with results.
[2018-04-22 20:25] LABS: CALCIUM 9.5 MG/DL (8.5-10.1); CREATININE SERUM 1.56 MG/DL (0.60-1.30); POTASSIUM 4.6 MMOL/L (3.6-5.0)
--- NOTE | 2018-04-22 20:30 | NUR ---
Notified Dr. Pinto of the BMP results. New orders for NS @ 60 mls/hr and CMP and CBC in am.
[2018-04-22] MEDS ORDERED: NS IV 1000 ML 1,000 ML ONE (20:38)
[2018-04-22] MEDS: TOLTERODINE LA 4 MG (DETROL) CAP PO SCH (20:45)
[2018-04-22] MEDS: MELATONIN 3 MG TABLET PO PRN (20:45)
[2018-04-22] MEDS ORDERED: NS IV 1000 ML 1,000 ML IV SCH (20:45)
[2018-04-22] MEDS: MONTELUKAST 10 MG (SINGULAIR) TAB PO SCH (20:45)
[2018-04-23] MEDS: HYDROcodone/APAP 7.5 MG/325 MG (LORTAB, LORCET PLUS) TABLET PO PRN ×2 (01:15→20:06)
[2018-04-23] MEDS: ALPRAZolam 0.25 MG (XANAX) TAB PO PRN ×2 (01:15→20:05)
[2018-04-23 05:04] VITALS: BP 97/64
--- NOTE | 2018-04-23 05:27 | PM&R Progress Note ---
Subjective HPI/CC On Admission Date Seen by Provider: Apr 23, 2018 Time Seen by Provider: 08:40 CC: Critical illness myopathy w/metabolic encephalopathy HPI: This is a 77yoWM who was admitted to [facility] due to critical illness with acute renal failure of 3.7 and dislocated right shoulder with right proximal humerus fracture with sepsis and UTI. Patient was intubated for a short time for AECOPD and metabolic acidosis along with respiratory acidosis. Patient had multiple falls at his home 5 days prior to admit and presented to [facility] with confusion and acute renal failure. Pt was thought to have meningitis but LP revealed no growth. UTI caused bacteremia and sepsis and patient was ultimately placed on Levaquin and will complete that treatment in 7 more days. Patient does have h/o bladder cancer and having urinary frequency so will consult Dr Quiñonez Urology. [place] [facility] [place] [facility] [place], [place] as his PCP due to serving in the [employer] for 12 years then serving as a [employer] for 40+ years. His new PCP will be Dr Lavonne Paul. Patient is a poor historian and has multiple chronic illnesses that will require extensive medical management in order to optimize prior to DC home. Subjective/Events-last exam Creatinine was noted to be elevated at 1.5 with oliguria yesterday so IV fluids of 60CCs per hour was initiated and creatinine went form 1.5 to 1.3 today. Discontinued fluoroquinolone since he was on Levaquin 500mg likely the cause of the oliguria and elevated creatinine since he had almost completed that treatment and since renal insufficiency he has adequate medication although he had it last night instead of today. Will hold Lisinopril also. Will hold Norvasc due to hypotension. Will maintain IV fluid for now Pt feels good otherwise. Appears to be a little more lucid. Review of Systems General: Fatigue Genitourinary: Retention Objective Exam Vital Signs Vital Signs Date Time Temp Pulse Resp B/P (MAP) Pulse Ox O2 Delivery O2 Flow Rate FiO2 04/24/18 15:47 93 Nasal Cannula 2.00 04/24/18 09:11 97.7 97 20 100/58 (72) Capillary Refill : Less Than 3 Seconds General Appearance: No Apparent Distress, WD/WN, Chronically ill, Obese Neck: Full Range of Motion, Normal Inspection, Non Tender, Supple Respiratory: Chest Non Tender, No Accessory Muscle Use, No Respiratory Distress , Crackles, Decreased Breath Sounds, Wheezing Cardiovascular: Regular Rate, Rhythm, No Edema, No Gallop, No JVD, No Murmur, Normal Peripheral Pulses Gastrointestinal: Normal Bowel Sounds, No Organomegaly, No Pulsatile Mass, Non Tender, Soft Back: Normal Inspection, No CVA Tenderness, No Vertebral Tenderness Extremity: Normal Capillary Refill, Normal Inspection, Normal Range of Motion ( except right arm), Non Tender, No Calf Tenderness, Other (weakness in all extremities) Neurologic/Psychiatric: Alert, Oriented x3, No Motor/Sensory Deficits, fish conservationist II- XII Norm as Tested, Depressed Affect, Disoriented, Other (generalized motor weakness) Skin: Normal Color, Warm/Dry Lymphatic: No Adenopathy Results/Procedures Lab Laboratory Tests 04/23/18 18:20 04/24/18 06:35 Patient resulted labs reviewed. Assessment/Plan Assessment and Plan Assess & Plan/Chief Complaint Assessment: s/p critical illness s/p sepsis Falls Confusion s/p ARF Severe anemia iron deficiency type receiving Venofer iron infusions COPD s/p VDRF Right proximal humerus fracture in sling HTN HLP Poor nutrition status h/o bladder cancer Incontinence with frequency prompting Urology consultation who completed cysto and it was normal Dementia at baseline? Plan: Iron level 25 confirmed low so empirically treated already with IV iron infusions Pain control BM regimen Urology consultation is appreciated Monitor closely melvin lung function Monitor labs periodically May need NH if can't improve with intensive therapies IVF Monitor output (1) Encephalopathy (2) History of sepsis (3) History of renal failure (4) Proximal humerus fracture (5) Abnormal albumin (6) History of bladder cancer (7) PTSD (post-traumatic stress disorder) (8) Hypertension (9) Skin cancer (10) UTI (urinary tract infection) (11) Wheezing (12) Incontinence of urine (13) Hyperlipemia (14) Confusion (15) Anemia (16) COPD (chronic obstructive pulmonary disease) Clinical Quality Measures DVT/VTE Risk/Contraindication: Risk Factor Score Per Nursin RFS Level Per Nursing on Admit: 4+=Very High HILLARY BROWN DO Apr 23, 2018 05:27
[2018-04-23] MEDS: RT-ALBUTEROL/IPRATROPIUM 3 ML (DUONEB) VIAL INH SCH ×3 (06:03→19:18)
[2018-04-23] MEDS: PANTOPRAZOLE 40 MG (PROTONIX) TAB PO SCH ×2 (06:34→20:05)
[2018-04-23 06:35] LABS: MEAN PLATELET VOLUME 9.2 FL (7.4-10.4); RED CELL DISTRIBUTION WIDTH 12.4 % (10.0-14.5); WHITE BLOOD COUNT 9.7 10^3/uL (4.3-11.0)
[2018-04-23 06:39] LABS: HEMOGLOBIN 6.7 G/DL (13.3-17.7)
[2018-04-23 06:47] LABS: ALBUMIN 2.8 GM/DL (3.2-4.5); BILIRUBIN,TOTAL 0.4 MG/DL (0.1-1.0); CALCIUM 9.4 MG/DL (8.5-10.1); CREATININE SERUM 1.32 MG/DL (0.60-1.30); POTASSIUM 4.3 MMOL/L (3.6-5.0)
[2018-04-23 08:00] VITALS: BP 97/66
[2018-04-23] MEDS: LACTOBACILLUS ACIDOPHILUS (PROBIOTIC) CAPSULE PO SCH (10:24)
[2018-04-23] MEDS: SENNA W/DOCUSATE (SENOKOT S) TABLET PO SCH ×2 (10:25→20:05)
[2018-04-23] MEDS: LORATADINE (CLARITIN) 10 MG TAB PO SCH (10:25)
[2018-04-23] MEDS: IRON SUCROSE 200 MG/10 ML (VENOFER) VIAL IV SCH (10:25)
--- NOTE | 2018-04-23 11:07 | Progress Note-Urology ---
Progress Note-Urology Progress Notes/Assess & Plan Progress/Assessment & Plan TOLERATES DETROL LA WELL Final Diagnosis INCONTINENCE XOCHITL CLIFTON MD Apr 23, 2018 11:07
[2018-04-23] MEDS: RT-ALBUTEROL/IPRATROPIUM 3 ML (DUONEB) VIAL INH PRN (11:14)
[2018-04-23 11:30] VITALS: BP 97/61
--- NOTE | 2018-04-23 11:34 | Physical Therapy Daily Note ---
PT Daily Note-Current Subjective Patient in recliner pre tx, agrees to PT, will be co-treating with OT for most of the treatment today due to patient weakness, poor balance and endurance. Appearance Patient in recliner post tx with OT to finish up. Mental Status Patient Orientation: Person, Confused Attachments: Oxygen, IV 2L of O2 nasal canula Transfers Therapy Code Descriptions/Definitions Functional [place] Measure: 0=Not Assessed/NA 4=Minimal Assistance 1=Total Assistance 5=Supervision or Setup 2=Maximal Assistance 6=Modified [place] 3=Moderate Assistance 7=Complete [place] Therapy Quality Codes: 6 Independent with activity with or without an assistive device 5 Patient requires set up or clean up by helper. Patient completes activity by themselves 4 Supervision or touching assist (CGA). [place] provide cues , steadying assist 3 The helper provides less than half the effort to complete the activity 2 The helper provides more than half the effort to complete the activity 1 Dependent. The helper does all the effort to complete an activity 7 Patient refused to complete or attempt activity 9 The patient did not perform the activity before the current illness or injury 88 Not attempted due to Medical conditions or safety concerns Transfers (B, C, W/C) (FIM): 3 Sit to/from Stand: 3 Bed to/from Chair: 3 Patient needs mod assist to stand, cues for positioning. Patient tends to sit without flexing enough at the knees and hips. Patient is retropulsive in standing. Patient stood in the parallel bars x3 with PT assist for balance and OT assist for LUE positioning. Weight Bearing Right Lower Extremity: Right Full Weight Bearing Left Lower Extremity: Left Full Weight Bearing NWB right UE; pt presents in a sling. Gait Training Gait (FIM): 2 Distance: 120'x2 Gait Level of Assist: 2 Gait Persons Needed: 2 Gait Assistive Device: Handheld Assist Patient has DYE HOUSE HAND on the left side but requires 2 therapists to ambulate and needs wheelchair follow. Wheelchair Training Does the Pt Use a Wheelchair?: Yes Wheelchair (FIM): 2 Distance: 120' Wheelchair Level of Assist: 3 Type of Wheelchair: Manual Patient needs assist with pushing and turning. Exercises LAQ alternating for 5 min, manual ankle stretching. Treatments transfers, ambulation, wheelchair mobility, standing, functional strengthening, patient also had bathing and dressing of lower extremities. Assessment Current Status: Fair Progress Improved ambulation, however, patient has been getting more SOB with activity and needs frequent rest breaks to recover. Patient has a very course cough that doesn't seem to be productive. He seems more confused. PT Short Term Goals Short Term Goals Time Frame: May 01, 2018 Gait (FIM): 4 Distance (FIM): 3=150 ft Gait Assistive Device: Cane Small Base Quad Wheelchair Distance: 10' PT Care Home Goals Fringing Machine Operator Goals PT Care Home Goals Time Frame: May 15, 2018 Transfers (B,C,W/C) (FIM): 6 Sit to Lying (QC): 6 Lying-Sitting on Side/Bed(QC): 6 Sit to Stand (QC): 6 Rollin Roll Left to Right (QC): 6 Chair/[id number] Xfer(QC): 6 Car Transfer (QC): 6 Does the Patient Walk: Yes Gait (FIM): 6 Gait distance (FIM): 3=150 ft Walk 10 feet (QC): 6 Walk 10ft-Uneven Surface(QC): 6 Walk 50ft with 2 Turns (QC): 6 Walk 150 ft (QC): 6 Gait Assistive Device: Cane Small Base Quad Does the Pt use WC or Scooter?: No Stairs (FIM): 5 # of Steps: 4 (household level) 1 Step (curb) (QC): 6 4 Steps (QC): 6 12 Steps (QC): 88 Stairs Level Of Assist: 6 Picking up an Object (QC): 5 PT Plan Problem List Problem List: Activity Tolerance, Functional Strength, Safety, Balance, Gait, Transfer, Bed Mobility, ROM Treatment/Plan Treatment Plan: Continue Plan of Care Treatment Plan: Bed Mobility, Education, Functional Activity Tania, Functional Strength, Group Therapy, Gait, Safety, Therapeutic Exercise, Transfers Treatment Duration: May 15, 2018 Frequency: At least 5 of 7 days/Wk (IRF) Estimated Hrs Per Day: 1.5 hours per day Patient and/or Family Agrees t: Yes Safety Risks/Education Patient Education: Gait Training, Transfer Techniques, Correct Positioning, W/ C Management, Safety Issues Teaching Recipient: Patient Teaching Methods: Demonstration, Discussion Response to Teaching: Reinforcement Needed Time/GCodes Time In: 0900 Time Out: 1015 Total Billed Treatment Time: 75 Total Billed Treatment 1 visit [facility] 15' GT 15' FA 45' OT worked on UE positioning, UE exercises, dressing, bathing, grooming, assisted with transfers and ambulation. PT worked on transfers, standing, wheelchair mobility, ambulation, and positioning and balance during dressing and bathing. PT treatment from [id number] and co-treatment from [id number]. ROSA ISELA FONTANA PT Apr 23, 2018 11:33
--- NOTE | 2018-04-23 11:40 | NUR ---
Therapy states pt progressively more SOB during therapy. RT called for breathing treatment. Dr. Pinto notified, CXR and BNP completed. IV fluids stopped. Pt has not voided today. Bladder Scan shows 72cc.
[2018-04-23] MEDS ORDERED: CATHETER FLUSH 10 ML SYR IV PRN (11:45)
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
[2018-04-23 13:00] LABS: ABG BASE EXCESS 5.1 MMOL/L (-2.5-2.5); ABG OXYGEN SATURATION 96 % (94-100); ABG PCO2 43 MMHG (35-45); ABG PH 7.45 (7.37-7.43); ABG PO2 72 MMHG (79-93); ABG TCO2 30.5 MMOL/L (21.0-31.0)
[2018-04-23 13:01] LABS: ALLENS TEST YES-POS; INSPIRED O2 2; PATIENT TEMP 98.1; VENTILATOR NO
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
--- NOTE | 2018-04-23 13:42 | Occupational Ther Daily Note ---
OT Current Status-Daily Note Subjective Pt. indicates that right UE is sore with movement at elbow, but does not state pain level. Appearance Pt. is up with PT when OT enters room. Completed partial co-treat with PT due to low endurance and need of two skilled therapists. OT facilitated UE placement during movement and ambulation, as well as ADL tasks. PT facilitated transfer training and ambulation. Mental Status/Objective Patient Orientation: Confused Therapy Code Descriptions/Definitions Functional [place] Measure: 0=Not Assessed/NA 4=Minimal Assistance 1=Total Assistance 5=Supervision or Setup 2=Maximal Assistance 6=Modified [place] 3=Moderate Assistance 7=Complete [place] ADL-Treatment Therapy Code Descriptions/Definitions Functional [place] Measure: 0=Not Assessed/NA 4=Minimal Assistance 1=Total Assistance 5=Supervision or Setup 2=Maximal Assistance 6=Modified [place] 3=Moderate Assistance 7=Complete [place] Therapy Quality Codes: 6 Independent with activity with or without an assistive device 5 Patient requires set up or clean up by helper. Patient completes activity by themselves 4 Supervision or touching assist (CGA). Gibson provide cues , steadying assist 3 The helper provides less than half the effort to complete the activity 2 The helper provides more than half the effort to complete the activity 1 Dependent. The helper does all the effort to complete an activity 7 Patient refused to complete or attempt activity 9 The patient did not perform the activity before the current illness or injury 88 Not attempted due to Medical conditions or safety concerns Bathing (FIM): 2 Shower/Bathe Self (QC): 2 Lower Body Dressing (FIM): 1 Lower Body Dressing (QC): 1 Transfers (B, C, W/C) (FIM): 1 (Pt. requires assistance of two people for functional transfer due to hand held assistance and wheelchair follow/balance.) OT and PT worked together to provide productive treatment for pt. Stood at parallel bars x 3 with PT facilitating transfer and OT assisting with foot placement and left UE placement. Ambulated twice in dining area with max cues and assistance of two therapists, hand held, with wheelchair follow. Completed left UE AROM exercises. However, pt. had difficulty following cues with this. OT provided gentle retrograde massage to left UE, as well as gentle PROM to left elbow, wrist, fingers. Pt. is encouraged to move these on his own, to reduce swelling and discomfort. Has difficulty with this. After treatment, pt. transferred back to reclining chair. All needs met. Education OT Patient Education: Correct positioning, Exercise program, Home exercise program, Modified ADL techniques, Progress toward Goal/Update tx plan, Purpose of tx/functional activities, Reviewed precautions, Rehab process, Transfer techniques Teaching Recipient: Patient Teaching Methods: Demonstration, Discussion Response to Teaching: Verbalize Understanding, Return Demonstration OT Short Term Goals Short Term Goals Time Frame: Apr 24, 2018 Eating(FIM): 5 Grooming(FIM): 5 Bathing(FIM): 3 Upper Body Dressing(FIM): 3 Lower Body Dressing(FIM): 2 Toileting(FIM): 3 Toilet/Commode Transfer(FIM): 4 Shower Transfer(FIM): 3 Additional Short Term Goals: 1-Demonstrate ADL Tasks, 2-Verbalize Understanding , 3-ImproveStrength/Tania 1=Demonstrate adherence to instructed precautions during ADL tasks. 2=Patient will verbalize/demonstrate understanding of assistive devices/ modifications for ADL. 3=Patient will improve strength/tolerance for activity to enable patient to perform ADL's. OT Primary Care Physician Goals Primary Care Physician Goals Time Frame: May 08, 2018 Eating (FIM): 5 Eating (QC): 5 Groomin Oral Hygiene (QC): 5 Bathing(FIM): 4 Shower/Bathe Self (QC): 4 Upper Body Dressing(FIM): 5 Upper Body Dressing (QC): 5 Lower Body Dressing(FIM): 5 Lower Body Dressing (QC): 5 On/Off Footwear (QC): 5 Toileting(FIM): 5 Toileting Hygiene (QC): 5 Toilet/Commode Transfer(FIM): 5 Toilet/Commode Transfer (QC): 5 Shower Transfer(FIM): 5 Additional Goals: 1-Demonstrate ADL Tasks, 2-Verbalize Understanding, 3- ImproveStrength/Tania 1=Demonstrate adherence to instructed precautions during ADL tasks. 2=Patient will verbalize/demonstrate understanding of assistive devices/ modifications for ADL. 3=Patient will improve strength/tolerance for activity to enable patient to perform ADL's. OT Education/Plan Problem List/Assessment Assessment: Decreased Activ Tolerance, Decreased UE Strength, Dependent Transfers, Impaired Bed Mobility, Impaired Cognition, Impaired Coordination, Impaired Funct Balance, Impaired I ADL's, Impaired Self-Care Skills, Restricted Funct UE ROM Pt to benefit from skilled OT intervention for ADL training, transfers, strengthening, and safety education to increase level of independence and allow safe discharge plan. Discharge Recommendations Plan/Recommendations: Continue POC Therapy D/C Recommendations: 24 hr Supervision Treatment Plan/Plan of Care Treatment,Training & Education: Yes Patient would benefit from OT for education, treatment and training to promote independence in ADL's, mobility, safety and/or upper extremity function for ADL' s. Plan of Care: ADL Retraining, Functional Mobility, Group Exercise/Act as Ind, UE Funct Exercise/Act Treatment Duration: May 08, 2018 Frequency: At least 5 of 7 days/Wk (IRF) Estimated Hrs Per Day: 1.5 hours per day Agreement: Yes Rehab Potential: Fair Time/GCodes Start Time: 09:20 Stop Time: 10:35 Total Time Billed (hr/min): 75 Billed Treatment Time 1, FA x 30minutes, ADL x 30minutes, Ex x 15minutes SHAHANA GUZMAN OT Apr 23, 2018 13:42
--- NOTE | 2018-04-23 14:00 | NUR ---
Dr. Olsen and Dr. Pinto notified of patient's CXR and ABGs.
[2018-04-23] MEDS: NS IV 1000 ML 1,000 ML IV SCH (15:09)
[2018-04-23] MEDS: CATHETER FLUSH 10 ML SYR IV SCH ×3 (15:10→21:10)
--- NOTE | 2018-04-23 15:11 | Speech Therapy Daily Note ---
Speech Daily Progress Note Subjective Date Seen by Provider: Apr 23, 2018 Time Seen by Provider: 00:30 Patient was resting in his recliner when I entered the room this afternoon. Patient's was present during the session today. Objective Patient completed simple conversational tasks today with 70% accuracy given moderate verbal cues. Assessment Assessment Current Status: Fair Progress Treatment Plan Continue Plan of Care Communication Comprehension: 4 Expression: 5 Social Cognition Social Interaction: 5 Problem Solvin Memory: 4 Speech Short Term Goals Short Term Goals Short Term Goals 1) Patient will complete memory tasks with 80% or greater with minimal cues. 2) Patient will complete problem solving tasks with 80% or greater with minimal cues. 3) Patient will follow directions for increased safety to meet his personal daily needs at 80% or greater with minimal cues. Speech Technology Architect Goals Technology Architect Goals Patient will improve his overall level of safety and independence to return to his prior level of functioning. Speech-Plan Patient/Family Goals Patient/Family Goals: Patient plans on returning home where he lives with his post rehab. Treatment Plan Speech Therapy Treatment Plan: Continue Plan of Care Patient is progressing as a result of skilled ST services. Treatment Duration: Apr 30, 2018 Frequency: 5 times per week Estimated Hrs Per Day: .25 hour per day Rehab Potential: Fair Barriers to Learning: Patient has moderate dementia. Pt/Family Agrees to Plan: Yes Safety Risks/Education Teaching Recipient: Patient, Significant Other Teaching Methods: Discussion Response to Teaching: Verbalize Understanding Education Topics Provided: Safety and utilization of his call light. Time Speech Therapy Time In: 14:30 Speech Therapy Time Out: 15:00 Total Billed Time: 30 Billed Treatment Time [address] ST Apr 23, 2018 15:11
--- NOTE | 2018-04-23 16:07 | NUR ---
LABOR CREW SUPERVISOR reached Saida SCALES at [facility] in regards to eligibility for VA aid and attendance at home vs. SNF contract. As patient is only 30% service connected, he does not qualify for either service; therefore, patient will be projected to pay privately for contract loader care. Patient does have [facility] as primary insurance source, this will provided 20 covered SNF days. LABOR CREW SUPERVISOR has requested local [facility] branch service representative to complete assessment with patient; however, rep will not be in the [place] area until 05/12. TREMAYNE will continue to follow for discharge planning.
--- NOTE | 2018-04-23 17:00 | NUR ---
Dr. Huggins here to see patient. One unit of blood ordered.
[2018-04-23 17:31] VITALS: BP 100/66
[2018-04-23 18:34] LABS: RETICULOCYTE % 1.16 % (0.50-2.40)
[2018-04-23] MEDS: TAMSULOSIN 0.4 MG (FLOMAX) CAP PO SCH (18:35)
[2018-04-23 18:53] LABS: ALBUMIN 3.1 GM/DL (3.2-4.5); BILIRUBIN,TOTAL 0.4 MG/DL (0.1-1.0); CALCIUM 9.3 MG/DL (8.5-10.1); CREATININE SERUM 1.42 MG/DL (0.60-1.30); POTASSIUM 4.5 MMOL/L (3.6-5.0); TOTAL PROTEIN 6.4 GM/DL (6.4-8.2)
--- NOTE | 2018-04-23 19:00 | NUR ---
Pt is O negative. Lab requested that Dr. Huggins be called since short supply of O negative blood. Dr. Huggins advised it is okay for pt to receive transfusion on 04/24/18 when there is more O negative blood on hand. Consent for blood transfusion obtained verbally from pt's Charisse due to patient's confusion.
[2018-04-23] MEDS: RT-ADVAIR HFA 115/21 MCG PER PUFF IH SCH (19:18)
[2018-04-23] MEDS ORDERED: FUROSEMIDE 40 MG/4 ML INJ (LASIX) IVP NR (19:30)
[2018-04-23] MEDS: MELATONIN 3 MG TABLET PO PRN (20:05)
[2018-04-23] MEDS: MONTELUKAST 10 MG (SINGULAIR) TAB PO SCH (20:05)
[2018-04-23] MEDS: TOLTERODINE LA 4 MG (DETROL) CAP PO SCH (20:05)
--- NOTE | 2018-04-23 23:48 | CONSULTATION REPORT ---
DATE OF SERVICE: 04/23/2018 The patient is admitted to room 229. PHYSICIAN REQUESTING CONSULTATION: Denita Pinto DO IMPRESSION: 1. A 77-year-old male admitted with mental status changes and history of fall with fracture of right arm. Also had urinary tract infection and sepsis with acute renal failure. The patient was treated at [facility] and transferred to rehabilitation unit and at [facility]. The patient was noted to have anemia. It is worsening and hematology consultation was requested. 2. 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 Rule out B12/folate deficiency versus myelodysplastic syndrome versus other. 3. Chronic kidney disease stage III. 4. Continued dementia versus encephalopathy. RECOMMENDATIONS: 1. Because of his age and other comorbidities, I would recommend maintaining hemoglobin in the 8 grams per deciliter or higher range. I would recommend type and cross and transfusing 1 unit of packed red blood cells for this. 2. I will obtain a CBC with a peripheral smear for review along with CMP, methylmalonic acid and homocysteine levels. 3. I will not obtain serum iron studies as he is on a course of parenteral iron therapy, which could interfere with the readings. 4. Once the results of the pending lab work is available, make further recommendations. BRIEF HISTORY: The patient is a 77-year-old male who was admitted to [facility] with urinary tract infection, sepsis, mental status changes along with acute on chronic renal failure. He was treated for this and transferred to [facility] for strengthening. He continues to have a decreased mental status and was unable to give any detailed history. He is still knew where he lived and answered questions about his family, but otherwise was not completely oriented or answering questions. Most of the history was obtained from his records. His family members were not present in the room at the time of examination. PAST MEDICAL HISTORY: Significant for COPD, chronic kidney disease. Superficial bladder cancer requiring a TURBT in the past, history of falls recently at home with dislocation of right shoulder and fracture of right proximal humerus, which is being managed conservatively. He has history of hypertension, benign prostatic hyperplasia and PTSD. PAST SURGICAL HISTORY: Include a TURBT as mentioned above for superficial bladder cancer. SOCIAL HISTORY: The patient is and lives in [place], [place]. He has a son and a daughter who lives close by. He has a history of tobacco use in the past and used alcohol socially. No history of recreational drug use. 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 FAMILY HISTORY: Could not be obtained in detail from the patient. PHYSICAL EXAMINATION: GENERAL: Today showed elderly male, awake and answering simple questions, but having difficulty remembering details. VITAL SIGNS: Temperature was 98.3, pulse rate of 104, respirations 20, blood pressure 100/66 with oxygen saturation of 97% on 2 liters of oxygen by nasal cannula. HEENT: Normocephalic, extraocular muscles intact, conjunctivae pale, oral mucosa is slightly dry. NECK: Supple, with no JVD. No cervical, supraclavicular or axillary lymphadenopathy palpable. CHEST: Symmetrical. Lungs with diminished breath sounds bilaterally without wheezes or rales. CARDIOVASCULAR: Regular rate and rhythm with occasional missed beats. No murmurs heard. ABDOMEN: Soft, nontender with no hepatosplenomegaly or other masses palpable. EXTREMITIES: Showed the right upper extremity in a sling. Rest of the extremities with no edema. NEUROLOGIC: Showed no focal motor deficits other than the right upper extremity mobilization. LABORATORY DATA: Reviewed his lab work. A CBC done today showed white count of 9.7, hemoglobin 6.7, MCV 102 and platelet count 351,000. Absolute reticulocyte count was low at 26,000. His hemoglobin level during current admission was in the 7.7 to 7.9 gram per deciliter range previously. On 07/21/2010, his white count was 9.6 and hemoglobin 14.2, platelet count of 348,000. Chemistry panel done today showed normal electrolytes. BUN was 23 and creatinine 1.42 with GFR 48 mL per minute. Liver function studies were normal except albumin level of 3.1. Chest x-ray done today showed scarring in the right costophrenic angle. Otherwise, no acute abnormalities were seen. Thank you for allowing me to participate in this patient's care. I will follow the patient with you and make appropriate recommendations. Job ID: [id number] DocumentID: [id number] Dictated Date: 04/23/2018 20:11:17 Flying Instructor Date: 04/23/2018 23:47:40 Dictated By: ROBI CORTES MD
[2018-04-24 05:29] VITALS: BP 119/71
[2018-04-24] MEDS: PANTOPRAZOLE 40 MG (PROTONIX) TAB PO SCH ×2 (05:54→20:01)
[2018-04-24 06:49] LABS: BASOPHILS # (AUTO) 0.1 10^3/uL (0.0-0.1); BASOPHILS % (AUTO) 1 % (0-10); EOSINOPHILS # (AUTO) 0.2 10^3/uL (0.0-0.3); EOSINOPHILS % (AUTO) 2 % (0-10); HEMATOCRIT 26 % (40-54); HEMOGLOBIN 7.9 G/DL (13.3-17.7); LYMPHOCYTES # (AUTO) 1.7 X 10^3 (1.0-4.0); LYMPHOCYTES % (AUTO) 20 % (12-44); MEAN CORPUSCULAR HEMOGLOBIN 32 PG (25-34); MEAN CORPUSCULAR HGB CONC 31 G/DL (32-36); MEAN CORPUSCULAR VOLUME 102 FL (80-99); MEAN PLATELET VOLUME 9.4 FL (7.4-10.4); MONOCYTES # (AUTO) 1.2 X 10^3 (0.0-1.0); MONOCYTES % (AUTO) 14 % (0-12); NEUTROPHILS # (AUTO) 5.3 X 10^3 (1.8-7.8); NEUTROPHILS % (AUTO) 63 % (42-75); PLATELET COUNT 359 10^3/uL (130-400); RED CELL DISTRIBUTION WIDTH 12.5 % (10.0-14.5); WHITE BLOOD COUNT 8.4 10^3/uL (4.3-11.0)
[2018-04-24] MEDS: RT-ALBUTEROL/IPRATROPIUM 3 ML (DUONEB) VIAL INH SCH ×3 (06:57→22:58)
[2018-04-24] MEDS: RT-ADVAIR HFA 115/21 MCG PER PUFF IH SCH ×2 (06:58→22:58)
[2018-04-24 07:18] LABS: BAND NEUTROPHILS 0 %; BASOPHILS % (MANUAL) 0 %; EOSINOPHILS % (MANUAL) 3 %; LYMPHOCYTES % (MANUAL) 21 %; MONOCYTES % (MANUAL) 15 %; NEUTROPHILS % (MANUAL) 61 %; RBC MORPH NORMAL
--- NOTE | 2018-04-24 07:39 | Pulmonary Progress Note ---
Sepsis Event Evaluation Height, Weight, BMI Height: 5'8.00" Weight: 173lbs. 1.0oz. 78.305857to; 31.9 BMI Method: Exam Exam Vital Signs Date Time Temp Pulse Resp B/P (MAP) Pulse Ox O2 Delivery O2 Flow Rate FiO2 04/24/18 06:57 94 Nasal Cannula 2.00 04/24/18 05:29 96.8 93 19 119/71 (87) 96 Nasal Cannula 2.00 04/23/18 20:55 Nasal Cannula 2.00 04/23/18 19:18 94 Nasal Cannula 2.00 04/23/18 17:31 98.3 104 20 100/66 (77) 97 Nasal Cannula 2.00 04/23/18 15:27 95 Nasal Cannula 2.00 04/23/18 11:30 95 97/61 (73) 95 Nasal Cannula 2.00 04/23/18 11:14 90 Nasal Cannula 2.00 04/23/18 09:00 97 Nasal Cannula 2.00 04/23/18 08:00 102 97/66 (76) 100 Nasal Cannula 2.00 I & O 04/24/18 07:00 Intake Total 1940 ml Output Total 300 ml Balance 1640 ml Height & Weight Height: 5'8.00" Weight: 173lbs. 1.0oz. 78.470482en; 31.9 BMI Method: General Appearance: No Apparent Distress, WD/WN, Chronically ill, Obese Neck: Full Range of Motion, Normal Inspection, Non Tender, Supple Respiratory: Chest Non Tender, No Accessory Muscle Use, No Respiratory Distress , Crackles, Decreased Breath Sounds, Wheezing Cardiovascular: Regular Rate, Rhythm, No Edema, No Gallop, No JVD, No Murmur, Normal Peripheral Pulses Extremity: Normal Capillary Refill, Normal Inspection, Normal Range of Motion ( except right arm), Non Tender, No Calf Tenderness, Other (weakness in all extremities) Neurologic/Psychiatric: Alert, Oriented x3, No Motor/Sensory Deficits, 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
[2018-04-24] MEDS: NS IV 1000 ML 1,000 ML IV SCH (07:51)
--- NOTE | 2018-04-24 08:38 | PM&R Progress Note ---
Subjective HPI/CC On Admission Date Seen by Provider: Apr 24, 2018 Time Seen by Provider: 08:40 CC: Critical illness myopathy w/metabolic encephalopathy HPI: This is a 77yoWM who was admitted to [facility] due to critical illness with acute renal failure of 3.7 and dislocated right shoulder with right proximal humerus fracture with sepsis and UTI. Patient was intubated for a short time for AECOPD and metabolic acidosis along with respiratory acidosis. Patient had multiple falls at his home 5 days prior to admit and presented to [facility] with confusion and acute renal failure. Pt was thought to have meningitis but LP revealed no growth. UTI caused bacteremia and sepsis and patient was ultimately placed on Levaquin and will complete that treatment in 7 more days. Patient does have h/o bladder cancer and having urinary frequency so will consult Dr Quiñonez Urology. Patient usually sees [facility] in [place], [place] as his PCP due to serving in the [employer] for 12 years then serving as a [employer] for 40+ years. His new PCP will be Dr Lavonne Paul. Patient is a poor historian and has multiple chronic illnesses that will require extensive medical management in order to optimize prior to DC home. Subjective/Events-last exam Confusion is really dependent on the time of day Hallucinating at night Incontinence noted and patient no on verge of oilguric renal failure as I originally thought so I have DC IVF Dr Quiñonez checked on him today and he told me that it would take 3 weeks for Detrol to help incontinence No pain is reported except right arm SBH will be consulted for hallucinations Review of Systems General: Fatigue Genitourinary: Incontinence Objective Exam Vital Signs Vital Signs Date Time Temp Pulse Resp B/P (MAP) Pulse Ox O2 Delivery O2 Flow Rate FiO2 04/24/18 15:47 93 Nasal Cannula 2.00 04/24/18 09:11 97.7 97 20 100/58 (72) Capillary Refill : Less Than 3 Seconds General Appearance: No Apparent Distress, WD/WN, Chronically ill, Obese Neck: Full Range of Motion, Normal Inspection, Non Tender, Supple Respiratory: Chest Non Tender, No Accessory Muscle Use, No Respiratory Distress , Crackles, Decreased Breath Sounds, Wheezing Cardiovascular: Regular Rate, Rhythm, No Edema, No Gallop, No JVD, No Murmur, Normal Peripheral Pulses Gastrointestinal: Normal Bowel Sounds, No Organomegaly, No Pulsatile Mass, Non Tender, Soft Back: Normal Inspection, No CVA Tenderness, No Vertebral Tenderness Extremity: Normal Capillary Refill, Normal Inspection, Normal Range of Motion ( except right arm), Non Tender, No Calf Tenderness, Other (weakness in all extremities) Neurologic/Psychiatric: Alert, Oriented x3, No Motor/Sensory Deficits, webfocus developer II- XII Norm as Tested, Depressed Affect, Disoriented, Other (generalized motor weakness) Skin: Normal Color, Warm/Dry Lymphatic: No Adenopathy Results/Procedures Lab Laboratory Tests 04/23/18 18:20 04/24/18 06:35 Patient resulted labs reviewed. Assessment/Plan Assessment and Plan Assess & Plan/Chief Complaint Assessment: s/p critical illness s/p sepsis Falls Confusion s/p ARF Severe anemia iron deficiency type receiving Venofer iron infusions COPD s/p VDRF Right proximal humerus fracture in sling HTN HLP Poor nutrition status h/o bladder cancer Incontinence with frequency prompting Urology consultation who completed cysto and it was normal Dementia at baseline? Plan: Iron level 25 confirmed low so empirically treated already with IV iron infusions Pain control BM regimen Urology consultation is appreciated Monitor closely melvin lung function Monitor labs periodically May need NH if can't improve with intensive therapies HLIVF (1) Encephalopathy (2) History of sepsis (3) History of renal failure (4) Proximal humerus fracture (5) Abnormal albumin (6) History of bladder cancer (7) PTSD (post-traumatic stress disorder) (8) Hypertension (9) Skin cancer (10) UTI (urinary tract infection) (11) Wheezing (12) Incontinence of urine (13) Hyperlipemia (14) Confusion (15) Anemia (16) COPD (chronic obstructive pulmonary disease) Clinical Quality Measures DVT/VTE Risk/Contraindication: Risk Factor Score Per Nursin RFS Level Per Nursing on Admit: 4+=Very High HILLARY BROWN DO Apr 24, 2018 08:38
[2018-04-24 08:57] LABS: ALBUMIN 3.2 GM/DL (3.2-4.5); BILIRUBIN,TOTAL 0.5 MG/DL (0.1-1.0); CALCIUM 9.6 MG/DL (8.5-10.1); CREATININE SERUM 1.23 MG/DL (0.60-1.30); POTASSIUM 4.1 MMOL/L (3.6-5.0); TOTAL PROTEIN 6.7 GM/DL (6.4-8.2)
--- NOTE | 2018-04-24 09:01 | Progress Note-Urology ---
Progress Note-Urology Progress Notes/Assess & Plan Progress/Assessment & Plan PATIENT SAYS INCONTINENCE LESS. TOLERATES DETROL LA WELL Final Diagnosis INCONTINENCE XOCHITL CLIFTON MD Apr 24, 2018 09:01
[2018-04-24 09:11] VITALS: BP 100/58
[2018-04-24] MEDS: LORATADINE (CLARITIN) 10 MG TAB PO SCH (09:14)
[2018-04-24] MEDS: LACTOBACILLUS ACIDOPHILUS (PROBIOTIC) CAPSULE PO SCH (09:14)
[2018-04-24] MEDS: guaiFENesin/CODEINE (ROBITUSSIN AC) 10ML UDC PO PRN (09:14)
[2018-04-24] MEDS: SENNA W/DOCUSATE (SENOKOT S) TABLET PO SCH ×2 (09:15→20:10)
--- NOTE | 2018-04-24 09:16 | NUR ---
Pt had lg soft brown bm approx an hour ago in toilet, stool softener held for this reason.
--- NOTE | 2018-04-24 09:17 | NUR ---
PT reports that pt has been hallucinating this morning while she has been working w him, states, that pt has said, "why don't you get that fella behind you & help me on to the toilet," when no one else was present, & also talked about seeing someone lying in his bed. Notified Dr. Pinto of this, & she states to obtain [facility] for pt.
--- NOTE | 2018-04-24 09:36 | Occupational Ther Daily Note ---
OT Current Status-Daily Note Subjective Pt alert and willing to participate with therapy services upon OT arrival. Pt' s RUE sling was not in place, and OT adjusted sling properly. Pain Numeric Pain Scale: 10-Worst Possible Pain Location: Right Location Body Site: Shoulder Pain Description: Dull, Pressure Mental Status/Objective Patient Orientation: Person, Confused (Pt was experiencing hallucinations this date, stating multiple times "Who is that man behind you? Who is that man in my bed? The two of you will pick me up and get me out of this chair?" Nurse and physician notified, as Dr. Pinto visited pt during this tx session. ), Mum[place]athy Therapy Code Descriptions/Definitions Functional Portal Measure: 0=Not Assessed/NA 4=Minimal Assistance 1=Total Assistance 5=Supervision or Setup 2=Maximal Assistance 6=Modified Portal 3=Moderate Assistance 7=Complete Portal ADL-Treatment Therapy Code Descriptions/Definitions Functional Portal Measure: 0=Not Assessed/NA 4=Minimal Assistance 1=Total Assistance 5=Supervision or Setup 2=Maximal Assistance 6=Modified Portal 3=Moderate Assistance 7=Complete Portal Therapy Quality Codes: 6 Independent with activity with or without an assistive device 5 Patient requires set up or clean up by helper. Patient completes activity by themselves 4 Supervision or touching assist (CGA). [place] provide cues , steadying assist 3 The helper provides less than half the effort to complete the activity 2 The helper provides more than half the effort to complete the activity 1 Dependent. The helper does all the effort to complete an activity 7 Patient refused to complete or attempt activity 9 The patient did not perform the activity before the current illness or injury 88 Not attempted due to Medical conditions or safety concerns Bathing (FIM): 2 (Pt required MaxA for seated sponge bath. Pt declined shower this date, stating that he only wants a sponge bath. ) Upper Body (FIM): 2 (UBD completed with MaxA and maximum verbal cues to sequence and maintain attention throughout duration of task. ) Lower Body Dressing (FIM): 2 (LBD MaxA with continuous verbal cues to maintain upright postural control to improve his ability to receive assistance. ) Toileting (FIM): 1 (Pt required total assistance for toileting as he required MaxA x 2, with continuous verbal cues to maintain upright position. ) Transfers (B, C, W/C) (FIM): 3 (Pt required ModA for sit to stand, and stand pivot transfers, with continuous verbal cues for postural control. ) Toilet/Commode Transfer (FIM): 3 (Pt required ModA for toileting transfer, with verbal cues for proper technique. ) Other Treatment Pt participated in freight handler strengthening through affected RUE hand, with use of yellow digiflex, 2x20 reps in order to improve strength and functional use of right hand following recent injury. Pt very lethargic at this point in tx session, stating, "all those other things we did just wore me out." Education OT Patient Education: Correct positioning, Modified ADL techniques, Reviewed precautions, Safety issues, Transfer techniques, Use of adapted equipment Teaching Recipient: Patient Teaching Methods: Demonstration, Discussion Response to Teaching: Verbalize Understanding, Return Demonstration, Reinforcement Needed OT Short Term Goals Short Term Goals Time Frame: Apr 24, 2018 Eating(FIM): 5 Grooming(FIM): 5 Bathing(FIM): 3 Upper Body Dressing(FIM): 3 Lower Body Dressing(FIM): 2 Toileting(FIM): 3 Toilet/Commode Transfer(FIM): 4 Shower Transfer(FIM): 3 Additional Short Term Goals: 1-Demonstrate ADL Tasks, 2-Verbalize Understanding , 3-ImproveStrength/Tania 1=Demonstrate adherence to instructed precautions during ADL tasks. 2=Patient will verbalize/demonstrate understanding of assistive devices/ modifications for ADL. 3=Patient will improve strength/tolerance for activity to enable patient to perform ADL's. OT Detention Goals Detention Goals Time Frame: May 08, 2018 Eating (FIM): 5 Eating (QC): 5 Groomin Oral Hygiene (QC): 5 Bathing(FIM): 4 Shower/Bathe Self (QC): 4 Upper Body Dressing(FIM): 5 Upper Body Dressing (QC): 5 Lower Body Dressing(FIM): 5 Lower Body Dressing (QC): 5 On/Off Footwear (QC): 5 Toileting(FIM): 5 Toileting Hygiene (QC): 5 Toilet/Commode Transfer(FIM): 5 Toilet/Commode Transfer (QC): 5 Shower Transfer(FIM): 5 Additional Goals: 1-Demonstrate ADL Tasks, 2-Verbalize Understanding, 3- ImproveStrength/Tania 1=Demonstrate adherence to instructed precautions during ADL tasks. 2=Patient will verbalize/demonstrate understanding of assistive devices/ modifications for ADL. 3=Patient will improve strength/tolerance for activity to enable patient to perform ADL's. OT Education/Plan Problem List/Assessment Pt to benefit from skilled OT intervention for ADL training, transfers, strengthening, and safety education to increase level of independence and allow safe discharge plan. Discharge Recommendations Plan/Recommendations: Continue POC Treatment Plan/Plan of Care Patient would benefit from OT for education, treatment and training to promote independence in ADL's, mobility, safety and/or upper extremity function for ADL' s. Plan of Care: ADL Retraining, Functional Mobility, Group Exercise/Act as Ind, UE Funct Exercise/Act Treatment Duration: May 08, 2018 Frequency: At least 5 of 7 days/Wk (IRF) Estimated Hrs Per Day: 1.5 hours per day Agreement: Yes Rehab Potential: Fair Time/GCodes Start Time: 08:00 Stop Time: 09:30 Billed Treatment Time 1, ADL5, TE1 EH LYMAN OT Apr 24, 2018 09:36
--- NOTE | 2018-04-24 10:16 | NUR ---
Call to [facility], as ordered by Dr. Pinto re: consult/eval re: pt hallucinations. Spoke w Kecia, she states that she will give the information to Nolan, & he will call us.
--- NOTE | 2018-04-24 10:52 | NUR ---
[facility] re: blood transfusion order; whether Dr. Huggins wants pt to have blood transfusion still or not since Hgb higher today than yesterday. Spoke leigh Lawrence. They will call us back.
--- NOTE | 2018-04-24 11:00 | NUR ---
Received order from Dr. Huggins to not perform blood transfusion today since Hgb came up today.
--- NOTE | 2018-04-24 11:05 | Physical Therapy Daily Note ---
PT Daily Note-Current Subjective Pt. in recliner. States he is not really interested in any activity but pt. agrees with encouragement. Pt. requests going to the bathroom to urinate. Asks to stand when in the bathroom to urinate. Pain Location: No Pain Reported Mental Status Patient Orientation: Confused Attachments: Other-See Comments (anamaria LOPEZ) Transfers Therapy Code Descriptions/Definitions Functional [place] Measure: 0=Not Assessed/NA 4=Minimal Assistance 1=Total Assistance 5=Supervision or Setup 2=Maximal Assistance 6=Modified [place] 3=Moderate Assistance 7=Complete [place] Therapy Quality Codes: 6 Independent with activity with or without an assistive device 5 Patient requires set up or clean up by helper. Patient completes activity by themselves 4 Supervision or touching assist (CGA). [place] provide cues , steadying assist 3 The helper provides less than half the effort to complete the activity 2 The helper provides more than half the effort to complete the activity 1 Dependent. The helper does all the effort to complete an activity 7 Patient refused to complete or attempt activity 9 The patient did not perform the activity before the current illness or injury 88 Not attempted due to Medical conditions or safety concerns Transfers (B, C, W/C) (FIM): 3 Scootin Rollin Supine to/from Sit: 3 Sit to/from Stand: 3 Pt. needs mod to min assist for sit to stand and for wt shift forward, initially very retropulsive and required instruction for balance and stability. for stand to sit pt. also needs instruction verbal and tactile to flex at hip as pt. plops back in extended position very hard and unsafe without this instruction Weight Bearing Right Lower Extremity: Right Full Weight Bearing Left Lower Extremity: Left Full Weight Bearing NWB right UE; pt presents in a sling. Gait Training Does the Patient Walk?: Yes Gait (FIM): 2 Distance (FIM): 1=118-08 ft (75ftx3) Gait Level of Assist: 3 Gait Persons Needed: 1 Gait Assistive Device: Handheld Assist w/c and O2 assist, no LOB, short shuffled steps , instructed to broaden PRASANNA Wheelchair Training Does the Pt Use a Wheelchair?: Yes Wheelchair (FIM): 2 Wheelchair Distance: 4=593-10 ft (50ft) Wheelchair Level of Assist: 3 Type of Wheelchair: Manual assist for brakes and to propel at times, hit and miss using feet Exercises Supine Ex: Ankle pumps, Quad Set, Heel Slides, Short Arc Quads, Straight leg raise, Hip abd/add Supine Reps: 15 Seated Therapy Exercises: Ankle pumps, Sit to stand, Long arc quads, Hip flexion Seated Reps: 15 NuStep Minutes: 10 NuStep Workload: 3 Treatments stood to toilet hanging on to bar, max assist for pants up down and to hold urinal etc, very minimal output Assessment Current Status: Good Progress PT Short Term Goals Short Term Goals Time Frame: May 01, 2018 Gait (FIM): 4 Distance (FIM): 3=150 ft Gait Assistive Device: Cane Small Base Quad Wheelchair Distance: 120' PT Planning Director Goals Planning Director Goals PT Planning Director Goals Time Frame: May 15, 2018 Transfers (B,C,W/C) (FIM): 6 Sit to Lying (QC): 6 Lying-Sitting on Side/Bed(QC): 6 Sit to Stand (QC): 6 Rollin Roll Left to Right (QC): 6 Chair/Ipc-ce-Cqdpy Xfer(QC): 6 Car Transfer (QC): 6 Does the Patient Walk: Yes Gait (FIM): 6 Gait distance (FIM): 3=150 ft Walk 10 feet (QC): 6 Walk 10ft-Uneven Surface(QC): 6 Walk 50ft with 2 Turns (QC): 6 Walk 150 ft (QC): 6 Gait Assistive Device: Cane Small Base Quad Does the Pt use WC or Scooter?: No Stairs (FIM): 5 # of Steps: 4 (household level) 1 Step (curb) (QC): 6 4 Steps (QC): 6 12 Steps (QC): 88 Stairs Level Of Assist: 6 Picking up an Object (QC): 5 PT Plan Treatment/Plan Treatment Plan: Continue Plan of Care Treatment Plan: Bed Mobility, Education, Functional Activity Tania, Functional Strength, Group Therapy, Gait, Safety, Therapeutic Exercise, Transfers Treatment Duration: May 15, 2018 Frequency: At least 5 of 7 days/Wk (IRF) Estimated Hrs Per Day: 1.5 hours per day Patient and/or Family Agrees t: Yes Safety Risks/Education Patient Education: Gait Training, Transfer Techniques, Correct Positioning, W/ C Management, Disease Process, Safety Issues Teaching Recipient: Patient Teaching Methods: Demonstration, Discussion Response to Teaching: Verbalize Understanding, Return Demonstration, Reinforcement Needed Time/GCodes Time In: 1000 Time Out: 1115 Total Billed Treatment Time: 75 Total Billed Treatment 1,GT15m,FA25m,EX20m,WC15m G Codes Necessary: JAIME Brenner SEAFOOD MANAGER Apr 24, 2018 11:05
--- NOTE | 2018-04-24 11:58 | NUR ---
pt correctly responds that this is Apr, & Friday, that the President is [place]. Stated the year is 2001 incorrectly, & that he was in [place].
[2018-04-24] MEDS: CATHETER FLUSH 10 ML SYR IV SCH ×2 (14:00→20:10)
--- NOTE | 2018-04-24 14:18 | NUR ---
Received order from Dr. Quiñonez to st cath x 1, may use Urojet after notified of PVR Bladder Scan of 541cc after max assist x 2 RN's to assist pt to stand to attempt to void in urinal, & assisted to toilet to void. Pt was only able to void 100c urine.
[2018-04-24] MEDS ORDERED: LIDOCAINE UROJET 2% GEL 10 ML PKG ONE (14:19)
[2018-04-24] MEDS: LIDOCAINE UROJET 2% GEL 10 ML PKG TOP NR (14:39)
--- NOTE | 2018-04-24 14:52 | Speech Therapy Daily Note ---
Speech Daily Progress Note Subjective Date Seen by Provider: Apr 24, 2018 Time Seen by Provider: 00:30 Patient was more alert today and participated better with therapy. Objective Patient completed problem solving tasks at 60% with moderate verbal cuing. Assessment Assessment Current Status: Fair Progress Treatment Plan Continue Plan of Care Communication Comprehension: 4 Expression: 5 Social Cognition Social Interaction: 5 Problem Solvin Memory: 4 Speech Short Term Goals Short Term Goals Short Term Goals 1) Patient will complete memory tasks with 80% or greater with minimal cues. 2) Patient will complete problem solving tasks with 80% or greater with minimal cues. 3) Patient will follow directions for increased safety to meet his personal daily needs at 80% or greater with minimal cues. Speech Prenatal Genetic Counselor Goals Residential Goals Patient will improve his overall level of safety and independence to return to his prior level of functioning. Speech-Plan Patient/Family Goals Patient/Family Goals: Patient plans to return home with his post rehab, although this is questionable due to his moderate dementia. Treatment Plan Speech Therapy Treatment Plan: Continue Plan of Care Patient is progressing as a result of skilled ST services. Treatment Duration: Apr 30, 2018 Frequency: 5 times per week Estimated Hrs Per Day: .25 hour per day Rehab Potential: Fair Barriers to Learning: Moderate dementia. Difficulty retaining new information. Pt/Family Agrees to Plan: Yes Safety Risks/Education Teaching Recipient: Patient Teaching Methods: Discussion Response to Teaching: Verbalize Understanding Education Topics Provided: Safety and utilization of the call light. Time Speech Therapy Time In: 13:30 Speech Therapy Time Out: 14:00 Total Billed Time: 30 Billed Treatment Time 1, ISATU Fitch Apr 24, 2018 14:52
[2018-04-24] MEDS: TAMSULOSIN 0.4 MG (FLOMAX) CAP PO SCH (17:52)
[2018-04-24 17:54] VITALS: BP 118/69
[2018-04-24] MEDS: HYDROcodone/APAP 7.5 MG/325 MG (LORTAB, LORCET PLUS) TABLET PO PRN (18:37)
[2018-04-24] MEDS: MONTELUKAST 10 MG (SINGULAIR) TAB PO SCH (20:01)
[2018-04-24] MEDS: TOLTERODINE LA 4 MG (DETROL) CAP PO SCH (20:01)
[2018-04-24] MEDS: MICONAZOLE 2% POWDER (DESENEX AF) 90 GM TOP SCH (20:02)
[2018-04-24] MEDS: NYSTATIN CREAM (MYCOSTATIN) 30 GM TUBE TP SCH (20:03)
[2018-04-24] MEDS: MELATONIN 3 MG TABLET PO PRN (20:11)
[2018-04-25 05:27] VITALS: BP 132/72
[2018-04-25] MEDS: CATHETER FLUSH 10 ML SYR IV SCH ×3 (06:03→21:39)
[2018-04-25] MEDS: PANTOPRAZOLE 40 MG (PROTONIX) TAB PO SCH ×2 (06:03→19:45)
--- NOTE | 2018-04-25 06:30 | NUR ---
Bladder scanner shows [address] Quiñonez notified. New order to insert Henriquez catheter, stop Detrol LA and start Flomax 0.4 mg daily.
[2018-04-25] MEDS: RT-ADVAIR HFA 115/21 MCG PER PUFF IH SCH ×2 (08:00→23:07)
[2018-04-25] MEDS: RT-ALBUTEROL/IPRATROPIUM 3 ML (DUONEB) VIAL INH SCH ×3 (08:45→23:07)
[2018-04-25 09:22] VITALS: BP 109/66
[2018-04-25] MEDS: LORATADINE (CLARITIN) 10 MG TAB PO SCH (09:24)
[2018-04-25] MEDS: LACTOBACILLUS ACIDOPHILUS (PROBIOTIC) CAPSULE PO SCH (09:24)
[2018-04-25] MEDS: IRON SUCROSE 200 MG/10 ML (VENOFER) VIAL IV SCH (09:55)
[2018-04-25] MEDS: NYSTATIN CREAM (MYCOSTATIN) 30 GM TUBE TP SCH ×2 (09:55→19:46)
[2018-04-25] MEDS: MICONAZOLE 2% POWDER (DESENEX AF) 90 GM TOP SCH ×2 (09:55→19:46)
--- NOTE | 2018-04-25 10:13 | Progress Note-Urology ---
Progress Note-Urology Progress Notes/Assess & Plan Progress/Assessment & Plan HAD LARGE RESIDUAL. RAE IN. DETROL DC'ED. FLOMAX STARTED Final Diagnosis URINE RETENTION AND INCONTINENCE XOCHITL CLIFTON MD Apr 25, 2018 10:13
--- NOTE | 2018-04-25 11:01 | PM&R Progress Note ---
Subjective HPI/CC On Admission Date Seen by Provider: Apr 25, 2018 Time Seen by Provider: 10:45 CC: Critical illness myopathy w/metabolic encephalopathy HPI: This is a 77yoWM who was admitted to [facility] due to critical illness with acute renal failure of 3.7 and dislocated right shoulder with right proximal humerus fracture with sepsis and UTI. Patient was intubated for a short time for AECOPD and metabolic acidosis along with respiratory acidosis. Patient had multiple falls at his home 5 days prior to admit and presented to [facility] with confusion and acute renal failure. Pt was thought to have meningitis but LP revealed no growth. UTI caused bacteremia and sepsis and patient was ultimately placed on Levaquin and will complete that treatment in 7 more days. Patient does have h/o bladder cancer and having urinary frequency so will consult Dr Quiñonez Urology. Patient usually sees [facility] in [place], [place] as his PCP due to serving in the [employer] for 12 years then serving as a [employer] for 40+ years. His new PCP will be Dr Lavonne Paul. Patient is a poor historian and has multiple chronic illnesses that will require extensive medical management in order to optimize prior to DC home. Subjective/Events-last exam Confusion is improved Hallucinating at night but only periodically Incontinence prior to cath placement Dr Quiñonez checked on him Friday No pain is reported except right arm SBH will be consulted for hallucinations and will be completed this week Review of Systems General: Fatigue Musculoskeletal: arm pain Neurological: Weakness, Confusion Objective Exam Vital Signs Vital Signs Date Time Temp Pulse Resp B/P (MAP) Pulse Ox O2 Delivery O2 Flow Rate FiO2 04/26/18 14:16 92 Nasal Cannula 2.00 04/26/18 06:00 97.9 82 20 120/73 (89) Capillary Refill : Less Than 3 Seconds General Appearance: No Apparent Distress, WD/WN, Chronically ill, Obese Neck: Full Range of Motion, Normal Inspection, Non Tender, Supple Respiratory: Chest Non Tender, No Accessory Muscle Use, No Respiratory Distress , Crackles, Decreased Breath Sounds, Wheezing Cardiovascular: Regular Rate, Rhythm, No Edema, No Gallop, No JVD, No Murmur, Normal Peripheral Pulses Gastrointestinal: Normal Bowel Sounds, No Organomegaly, No Pulsatile Mass, Non Tender, Soft Back: Normal Inspection, No CVA Tenderness, No Vertebral Tenderness Extremity: Normal Capillary Refill, Normal Inspection, Normal Range of Motion ( except right arm), Non Tender, No Calf Tenderness, Other (weakness in all extremities) Neurologic/Psychiatric: Alert, Oriented x3, No Motor/Sensory Deficits, shuttler car II- XII Norm as Tested, Depressed Affect, Disoriented, Other (generalized motor weakness) Skin: Normal Color, Warm/Dry Lymphatic: No Adenopathy Results/Procedures Lab Patient resulted labs reviewed. Assessment/Plan Assessment and Plan Assess & Plan/Chief Complaint Assessment: s/p critical illness s/p sepsis Falls Confusion s/p ARF Severe anemia iron deficiency type receiving Venofer iron infusions COPD s/p VDRF Right proximal humerus fracture in sling HTN HLP Poor nutrition status h/o bladder cancer Incontinence with frequency prompting Urology consultation who completed cysto and it was normal but now requiring catheter placement Dementia at baseline? Plan: Iron level 25 confirmed low so empirically treated already with IV iron infusions Pain control BM regimen Urology consultation is appreciated Monitor closely melvin lung function Monitor labs periodically May need NH if can't improve with intensive therapies HLIVF (1) Encephalopathy (2) History of sepsis (3) History of renal failure (4) Proximal humerus fracture (5) Abnormal albumin (6) History of bladder cancer (7) PTSD (post-traumatic stress disorder) (8) Hypertension (9) Skin cancer (10) UTI (urinary tract infection) (11) Wheezing (12) Incontinence of urine (13) Hyperlipemia (14) Confusion (15) Anemia (16) COPD (chronic obstructive pulmonary disease) Clinical Quality Measures DVT/VTE Risk/Contraindication: Risk Factor Score Per Nursin RFS Level Per Nursing on Admit: 4+=Very High HILLARY BROWN DO Apr 25, 2018 11:01
[2018-04-25] MEDS: SENNA W/DOCUSATE (SENOKOT S) TABLET PO SCH ×2 (11:04→19:45)
--- NOTE | 2018-04-25 12:33 | Physical Therapy Daily Note ---
PT Daily Note-Current Subjective Pt agreeable to get up out of chair, showing some signs of confusion, states he has pain in his R arm, but unable to give rating Appearance upon arrival, pt sitting up in recliner with alarm activated At end of session, pt sitting up in recliner with LE's elevated, alarm activated , call light, phone and bedside table within reach Mental Status Patient Orientation: Confused Transfers Therapy Code Descriptions/Definitions Functional [place] Measure: 0=Not Assessed/NA 4=Minimal Assistance 1=Total Assistance 5=Supervision or Setup 2=Maximal Assistance 6=Modified [place] 3=Moderate Assistance 7=Complete [place] Therapy Quality Codes: 6 Independent with activity with or without an assistive device 5 Patient requires set up or clean up by helper. Patient completes activity by themselves 4 Supervision or touching assist (CGA). [place] provide cues , steadying assist 3 The helper provides less than half the effort to complete the activity 2 The helper provides more than half the effort to complete the activity 1 Dependent. The helper does all the effort to complete an activity 7 Patient refused to complete or attempt activity 9 The patient did not perform the activity before the current illness or injury 88 Not attempted due to Medical conditions or safety concerns Transfers (B, C, W/C) (FIM): 4 Weight Bearing Right Lower Extremity: Right Full Weight Bearing Left Lower Extremity: Left Full Weight Bearing NWB right UE; pt presents in a sling. Gait Training Does the Patient Walk?: Yes Gait (FIM): 2 Distance (FIM): 9=686-37 ft Distance: 86' Gait Level of Assist: 3 Gait Persons Needed: 1 Gait Assistive Device: Handheld Assist RUE in sling, pt unable to understand use of cane, MEDICAL MANAGER provided, Mod to Max A required for pt to maintain balance, path deviation, scissoring gait at times, retropulsion. Treatments transfer safety balance gait training Assessment Current Status: Fair Progress PT Short Term Goals Short Term Goals Time Frame: May 01, 2018 Gait (FIM): 4 Distance (FIM): 3=150 ft Gait Assistive Device: Cane Small Base Quad Wheelchair Distance: 120' PT Chcf Goals Chcf Goals PT Child And Adolescent Psychiatrist Goals Time Frame: May 15, 2018 Transfers (B,C,W/C) (FIM): 6 Sit to Lying (QC): 6 Lying-Sitting on Side/Bed(QC): 6 Sit to Stand (QC): 6 Rollin Roll Left to Right (QC): 6 Chair/Ldo-xu-Dzayf Xfer(QC): 6 Car Transfer (QC): 6 Does the Patient Walk: Yes Gait (FIM): 6 Gait distance (FIM): 3=150 ft Walk 10 feet (QC): 6 Walk 10ft-Uneven Surface(QC): 6 Walk 50ft with 2 Turns (QC): 6 Walk 150 ft (QC): 6 Gait Assistive Device: Cane Small Base Quad Does the Pt use WC or Scooter?: No Stairs (FIM): 5 # of Steps: 4 (household level) 1 Step (curb) (QC): 6 4 Steps (QC): 6 12 Steps (QC): 88 Stairs Level Of Assist: 6 Picking up an Object (QC): 5 PT Plan Treatment/Plan Treatment Plan: Continue Plan of Care Treatment Plan: Bed Mobility, Education, Functional Activity Tania, Functional Strength, Group Therapy, Gait, Safety, Therapeutic Exercise, Transfers Treatment Duration: May 15, 2018 Frequency: At least 5 of 7 days/Wk (IRF) Estimated Hrs Per Day: 1.5 hours per day Patient and/or Family Agrees t: Yes Safety Risks/Education Patient Education: Gait Training, Transfer Techniques, Safety Issues Teaching Recipient: Patient Teaching Methods: Discussion Response to Teaching: Verbalize Understanding, Unable to Return Demonstration, Reinforcement Needed Time/GCodes Time In: 1030 Time Out: 1048 Total Billed Treatment Time: 18 Total Billed Treatment 1 visit, GT x18' JOHN MEADOWS TELEVISION SCRIPT WRITER Apr 25, 2018 12:33
--- NOTE | 2018-04-25 17:02 | NUR ---
Chair alarm going off, pt sitting on the raised footstool of recliner, attempting to get out of recliner & pull himself up using bed rail. Pt states that he's, "got to get out of here, I need to talk to my ." Assisted pt to stand, & to get in bed. Called on phone, & pt spoke w her, states that he's "being held prisoner here, & he needs to get out." Pt handed me the phone & I spoke w , states that he seems confused. Updated on pt condition, that ray was placed last night at Dr. Quiñonez's order d/t retention. That pt walked w PT this AM, along w RN, & PCT walking pt in the halls 3 x's today, & that pt actually seems to be walking better today than he did yesterday. Pt gave me his supper order, & this was called in. Bed alarm on, 4 rails up, call lt in hand. Watching tv.
[2018-04-25] MEDS: TAMSULOSIN 0.4 MG (FLOMAX) CAP PO SCH (17:50)
[2018-04-25 18:53] VITALS: BP 107/69
[2018-04-25] MEDS: MONTELUKAST 10 MG (SINGULAIR) TAB PO SCH (19:45)
[2018-04-25] MEDS: HYDROcodone/APAP 7.5 MG/325 MG (LORTAB, LORCET PLUS) TABLET PO PRN (20:58)
[2018-04-26 06:00] VITALS: BP 120/73
[2018-04-26] MEDS: PANTOPRAZOLE 40 MG (PROTONIX) TAB PO SCH ×2 (06:04→20:06)
[2018-04-26] MEDS: CATHETER FLUSH 10 ML SYR IV SCH ×3 (06:04→20:13)
[2018-04-26] MEDS: RT-ALBUTEROL/IPRATROPIUM 3 ML (DUONEB) VIAL INH SCH ×3 (06:52→19:59)
[2018-04-26] MEDS: LORATADINE (CLARITIN) 10 MG TAB PO SCH (08:32)
[2018-04-26] MEDS: SENNA W/DOCUSATE (SENOKOT S) TABLET PO SCH ×2 (08:32→20:06)
[2018-04-26] MEDS: LACTOBACILLUS ACIDOPHILUS (PROBIOTIC) CAPSULE PO SCH (08:32)
[2018-04-26] MEDS: NYSTATIN CREAM (MYCOSTATIN) 30 GM TUBE TP SCH ×2 (08:33→20:07)
[2018-04-26] MEDS: MICONAZOLE 2% POWDER (DESENEX AF) 90 GM TOP SCH ×2 (08:33→20:09)
[2018-04-26] MEDS: RT-ADVAIR HFA 115/21 MCG PER PUFF IH SCH ×2 (11:40→19:59)
--- NOTE | 2018-04-26 11:48 | Progress Note-Urology ---
Progress Note-Urology Progress Notes/Assess & Plan Progress/Assessment & Plan TOV TOMORROW Final Diagnosis RETENTION XOCHITL CLIFTON MD Apr 26, 2018 11:48
--- NOTE | 2018-04-26 14:07 | PM&R Progress Note ---
Subjective HPI/CC On Admission Date Seen by Provider: Apr 26, 2018 Time Seen by Provider: 14:15 CC: Critical illness myopathy w/metabolic encephalopathy HPI: This is a 77yoWM who was admitted to [facility] due to critical illness with acute renal failure of 3.7 and dislocated right shoulder with right proximal humerus fracture with sepsis and UTI. Patient was intubated for a short time for AECOPD and metabolic acidosis along with respiratory acidosis. Patient had multiple falls at his home 5 days prior to admit and presented to [facility] with confusion and acute renal failure. Pt was thought to have meningitis but LP revealed no growth. UTI caused bacteremia and sepsis and patient was ultimately placed on Levaquin and will complete that treatment in 7 more days. Patient does have h/o bladder cancer and having urinary frequency so will consult Dr Quiñonez Urology. Patient usually sees [facility] in [place], [place] as his PCP due to serving in the [employer] for 12 years then serving as a [employer] for 40+ years. His new PCP will be Dr Lavonne Paul. Patient is a poor historian and has multiple chronic illnesses that will require extensive medical management in order to optimize prior to DC home. Subjective/Events-last exam Confusion is really dependent on the time of day and family at bedside tells me it is worse when he wakes up Hallucinating at night but only rare occasion now Catheter is in place Dr Quiñonez expertise is appreciated No pain is reported except right arm SBH will be consulted for hallucinations this week Bring in outside food for him Family updated on the plan Review of Systems General: Fatigue Musculoskeletal: arm pain Neurological: Confusion Objective Exam Vital Signs Vital Signs Date Time Temp Pulse Resp B/P (MAP) Pulse Ox O2 Delivery O2 Flow Rate FiO2 04/26/18 14:16 92 Nasal Cannula 2.00 04/26/18 06:00 97.9 82 20 120/73 (89) Capillary Refill : Less Than 3 Seconds General Appearance: No Apparent Distress, WD/WN, Chronically ill, Obese Neck: Full Range of Motion, Normal Inspection, Non Tender, Supple Respiratory: Chest Non Tender, No Accessory Muscle Use, No Respiratory Distress , Crackles, Decreased Breath Sounds, Wheezing Cardiovascular: Regular Rate, Rhythm, No Edema, No Gallop, No JVD, No Murmur, Normal Peripheral Pulses Gastrointestinal: Normal Bowel Sounds, No Organomegaly, No Pulsatile Mass, Non Tender, Soft Back: Normal Inspection, No CVA Tenderness, No Vertebral Tenderness Extremity: Normal Capillary Refill, Normal Inspection, Normal Range of Motion ( except right arm), Non Tender, No Calf Tenderness, Other (weakness in all extremities) Neurologic/Psychiatric: Alert, Oriented x3, No Motor/Sensory Deficits, mail service coordinator II- XII Norm as Tested, Depressed Affect, Disoriented, Other (generalized motor weakness) Skin: Normal Color, Warm/Dry Lymphatic: No Adenopathy Results/Procedures Lab Patient resulted labs reviewed. Assessment/Plan Assessment and Plan Assess & Plan/Chief Complaint Assessment: s/p critical illness s/p sepsis Falls Confusion s/p ARF Severe anemia iron deficiency type receiving Venofer iron infusions COPD s/p VDRF Right proximal humerus fracture in sling HTN HLP Poor nutrition status h/o bladder cancer Incontinence with frequency prompting Urology consultation who completed cysto and it was normal Dementia at baseline? Plan: Iron level 25 confirmed low so empirically treated already with IV iron infusions Pain control BM regimen Urology consultation is appreciated Monitor closely melvin lung function Monitor labs periodically May need NH if can't improve with intensive therapies HLIVF (1) Encephalopathy (2) History of sepsis (3) History of renal failure (4) Proximal humerus fracture (5) Abnormal albumin (6) History of bladder cancer (7) PTSD (post-traumatic stress disorder) (8) Hypertension (9) Skin cancer (10) UTI (urinary tract infection) (11) Wheezing (12) Incontinence of urine (13) Hyperlipemia (14) Confusion (15) Anemia (16) COPD (chronic obstructive pulmonary disease) Clinical Quality Measures DVT/VTE Risk/Contraindication: Risk Factor Score Per Nursin RFS Level Per Nursing on Admit: 4+=Very High HILLARY BROWN DO Apr 26, 2018 14:07
[2018-04-26] MEDS: TAMSULOSIN 0.4 MG (FLOMAX) CAP PO SCH (17:30)
[2018-04-26 17:57] VITALS: BP 127/69
[2018-04-26] MEDS: MONTELUKAST 10 MG (SINGULAIR) TAB PO SCH (20:06)
[2018-04-26] MEDS: MELATONIN 3 MG TABLET PO PRN (20:06)
[2018-04-27 05:13] VITALS: BP 123/69
[2018-04-27] MEDS: CATHETER FLUSH 10 ML SYR IV SCH ×3 (05:42→22:46)
[2018-04-27] MEDS: PANTOPRAZOLE 40 MG (PROTONIX) TAB PO SCH ×2 (05:42→21:23)
[2018-04-27 06:41] LABS: BASOPHILS # (AUTO) 0.1 10^3/uL (0.0-0.1); BASOPHILS % (AUTO) 1 % (0-10); EOSINOPHILS # (AUTO) 0.2 10^3/uL (0.0-0.3); EOSINOPHILS % (AUTO) 2 % (0-10); HEMATOCRIT 23 % (40-54); HEMOGLOBIN 7.3 G/DL (13.3-17.7); LYMPHOCYTES # (AUTO) 1.9 X 10^3 (1.0-4.0); LYMPHOCYTES % (AUTO) 27 % (12-44); MEAN CORPUSCULAR HEMOGLOBIN 32 PG (25-34); MEAN CORPUSCULAR HGB CONC 31 G/DL (32-36); MEAN CORPUSCULAR VOLUME 102 FL (80-99); MEAN PLATELET VOLUME 9.7 FL (7.4-10.4); MONOCYTES # (AUTO) 1.1 X 10^3 (0.0-1.0); MONOCYTES % (AUTO) 15 % (0-12); NEUTROPHILS # (AUTO) 3.9 X 10^3 (1.8-7.8); NEUTROPHILS % (AUTO) 55 % (42-75); PLATELET COUNT 371 10^3/uL (130-400); RED CELL DISTRIBUTION WIDTH 12.3 % (10.0-14.5); WHITE BLOOD COUNT 7.1 10^3/uL (4.3-11.0)
[2018-04-27] MEDS: RT-ALBUTEROL/IPRATROPIUM 3 ML (DUONEB) VIAL INH SCH ×3 (06:41→20:00)
[2018-04-27] MEDS: RT-ADVAIR HFA 115/21 MCG PER PUFF IH SCH ×2 (06:44→20:00)
[2018-04-27 07:06] LABS: ALANINE AMINOTRANSFERASE 10 U/L (0-55); ALBUMIN 2.9 GM/DL (3.2-4.5); ALKALINE PHOSPHATASE 75 U/L (40-136); BILIRUBIN,TOTAL 0.4 MG/DL (0.1-1.0); BUN/CREATININE RATIO 12; CALCIUM 9.3 MG/DL (8.5-10.1); CARBON DIOXIDE 28 MMOL/L (21-32); CHLORIDE 103 MMOL/L (98-107); CREATININE SERUM 0.84 MG/DL (0.60-1.30); GFR ESTIMATED > 60; GLUCOSE 86 MG/DL (70-105); POTASSIUM 3.9 MMOL/L (3.6-5.0); SODIUM 139 MMOL/L (135-145); TOTAL PROTEIN 6.4 GM/DL (6.4-8.2)
[2018-04-27] MEDS: SENNA W/DOCUSATE (SENOKOT S) TABLET PO SCH ×2 (07:58→21:24)
[2018-04-27] MEDS: LACTOBACILLUS ACIDOPHILUS (PROBIOTIC) CAPSULE PO SCH (07:58)
[2018-04-27] MEDS: LORATADINE (CLARITIN) 10 MG TAB PO SCH (07:58)
[2018-04-27] MEDS: IRON SUCROSE 200 MG/10 ML (VENOFER) VIAL IV SCH (07:59)
[2018-04-27] MEDS: MICONAZOLE 2% POWDER (DESENEX AF) 90 GM TOP SCH ×2 (08:27→21:33)
[2018-04-27] MEDS: NYSTATIN CREAM (MYCOSTATIN) 30 GM TUBE TP SCH ×2 (08:27→21:24)
--- NOTE | 2018-04-27 08:31 | PM&R Progress Note ---
Subjective HPI/CC On Admission Date Seen by Provider: Apr 27, 2018 Time Seen by Provider: 08:30 CC: Critical illness myopathy w/metabolic encephalopathy HPI: This is a 77yoWM who was admitted to [facility] due to critical illness with acute renal failure of 3.7 and dislocated right shoulder with right proximal humerus fracture with sepsis and UTI. Patient was intubated for a short time for AECOPD and metabolic acidosis along with respiratory acidosis. Patient had multiple falls at his home 5 days prior to admit and presented to [facility] with confusion and acute renal failure. Pt was thought to have meningitis but LP revealed no growth. UTI caused bacteremia and sepsis and patient was ultimately placed on Levaquin and will complete that treatment in 7 more days. Patient does have h/o bladder cancer and having urinary frequency so will consult Dr Quiñonez Urology. Patient usually sees [place] [facility] in [place], [place] as his PCP due to serving in the [employer] for 12 years then serving as a [employer] for 40+ years. His new PCP will be Dr Lavonne Paul. Patient is a poor historian and has multiple chronic illnesses that will require extensive medical management in order to optimize prior to DC home. Subjective/Events-last exam Psych evaluation hopefully today Still having hallucinations Henriquez catheter is out now Bowel movements are normal Labs reviewed, hgb 7.3, otherwise normal labs Review of Systems General: Fatigue Genitourinary: Incontinence Musculoskeletal: arm pain Neurological: Confusion Objective Exam Vital Signs Vital Signs Date Time Temp Pulse Resp B/P (MAP) Pulse Ox O2 Delivery O2 Flow Rate FiO2 04/27/18 20:02 92 Room Air 04/27/18 17:20 97.6 97 18 133/77 (95) 04/26/18 17:57 2.00 Capillary Refill : Less Than 3 Seconds General Appearance: No Apparent Distress, WD/WN, Chronically ill, Obese Neck: Full Range of Motion, Normal Inspection, Non Tender, Supple Respiratory: Chest Non Tender, No Accessory Muscle Use, No Respiratory Distress , Crackles, Decreased Breath Sounds, Wheezing Cardiovascular: Regular Rate, Rhythm, No Edema, No Gallop, No JVD, No Murmur, Normal Peripheral Pulses Gastrointestinal: Normal Bowel Sounds, No Organomegaly, No Pulsatile Mass, Non Tender, Soft Back: Normal Inspection, No CVA Tenderness, No Vertebral Tenderness Extremity: Normal Capillary Refill, Normal Inspection, Normal Range of Motion ( except right arm), Non Tender, No Calf Tenderness, Other (weakness in all extremities) Neurologic/Psychiatric: Alert, Oriented x3, No Motor/Sensory Deficits, gun barrel finisher II- XII Norm as Tested, Depressed Affect, Disoriented, Other (generalized motor weakness) Skin: Normal Color, Warm/Dry Lymphatic: No Adenopathy Results/Procedures Lab Laboratory Tests 04/27/18 06:30 Patient resulted labs reviewed. Assessment/Plan Assessment and Plan Assess & Plan/Chief Complaint Assessment: s/p critical illness s/p sepsis Falls Confusion s/p ARF Severe anemia iron deficiency type receiving Venofer iron infusions COPD s/p VDRF Right proximal humerus fracture in sling HTN HLP Poor nutrition status h/o bladder cancer Incontinence with frequency prompting Urology consultation who completed cysto and it was normal but now requiring catheter placement Dementia at baseline? Plan: Iron level 25 confirmed low so empirically treated already with IV iron infusions Pain control BM regimen Urology consultation is appreciated Monitor closely melvin lung function Monitor labs periodically May need NH if can't improve with intensive therapies HLIVF SBH evaluation (1) Encephalopathy (2) History of sepsis (3) History of renal failure (4) Proximal humerus fracture (5) Abnormal albumin (6) History of bladder cancer (7) PTSD (post-traumatic stress disorder) (8) Hypertension (9) Skin cancer (10) UTI (urinary tract infection) (11) Wheezing (12) Incontinence of urine (13) Hyperlipemia (14) Confusion (15) Anemia (16) COPD (chronic obstructive pulmonary disease) Clinical Quality Measures DVT/VTE Risk/Contraindication: Risk Factor Score Per Nursin RFS Level Per Nursing on Admit: 4+=Very High HILLARY BROWN DO Apr 27, 2018 08:31
--- NOTE | 2018-04-27 08:55 | Physical Therapy Daily Note ---
PT Daily Note-Current Subjective Pt. up in recliner with breakfast tray in front. States he really isnt a breakfast eater and is worried about how much all this food is costing him. This EDGE GLUER assures him it is included in his bill, no extra chg. Pt. is apprehensive about having his ray DCd but expresses he is impressed after nurse comes in and does it nearly without him noticing. Pt. agrees to Rx. Pain Location: No Pain Reported Mental Status Patient Orientation: Person, Place Attachments: Other-See Comments (anamaria LOPEZ.) Pt. is almost 78 yrs old but while out of room pt. keeps looking in room to see if his Mom and sister are in his room to visit, this EDGE GLUER inquires as to how old his Mom might be as she surely would be nearly 100 yrs old. pt. likely confused Transfers Therapy Code Descriptions/Definitions Functional [place] Measure: 0=Not Assessed/NA 4=Minimal Assistance 1=Total Assistance 5=Supervision or Setup 2=Maximal Assistance 6=Modified [place] 3=Moderate Assistance 7=Complete [place] Therapy Quality Codes: 6 Independent with activity with or without an assistive device 5 Patient requires set up or clean up by helper. Patient completes activity by themselves 4 Supervision or touching assist (CGA). [place] provide cues , steadying assist 3 The helper provides less than half the effort to complete the activity 2 The helper provides more than half the effort to complete the activity 1 Dependent. The helper does all the effort to complete an activity 7 Patient refused to complete or attempt activity 9 The patient did not perform the activity before the current illness or injury 88 Not attempted due to Medical conditions or safety concerns Transfers (B, C, W/C) (FIM): 4 Scootin Rollin Supine to/from Sit: 4 Sit to/from Stand: 4 Bed to/from Chair: 4 Weight Bearing Right Lower Extremity: Right Full Weight Bearing Left Lower Extremity: Left Full Weight Bearing NWB right UE; pt presents in a sling. Gait Training Does the Patient Walk?: Yes Gait (FIM): 4 Distance (FIM): 3=150 ft (150,50x2) Gait Level of Assist: 4 Gait Persons Needed: 1 Gait Assistive Device: Handheld Assist walked at rail in capps min assist as well as MORTGAGE LOAN UNDERWRITER and trialed Qcane which pt cant het sequence of essentially carried the cane Wheelchair Training Does the Pt Use a Wheelchair?: Yes Wheelchair (FIM): 4 Wheelchair Distance: 3=150 ft Wheelchair Level of Assist: 4 (needs assist to brake on one side) Type of Wheelchair: Manual Exercises Supine Ex: Ankle pumps, Quad Set, Glut sets, Heel Slides, Hip abd/add Supine Reps: 12 Seated Therapy Exercises: Sit to stand, Long arc quads, Hip flexion Seated Reps: 12 Standing: Hip Abduction, Heel/toe raises, Marching Standing Reps: 12 Treatments SPT w/c to toilet and back, max assist for pants down and up Assessment Current Status: Good Progress PT Short Term Goals Short Term Goals Time Frame: May 01, 2018 Gait (FIM): 4 Distance (FIM): 3=150 ft Gait Assistive Device: Cane Small Base Quad Wheelchair Distance: 120' PT Bun Panner Goals Skilled Nursing Goals PT Bun Panner Goals Time Frame: May 15, 2018 Transfers (B,C,W/C) (FIM): 6 Sit to Lying (QC): 6 Lying-Sitting on Side/Bed(QC): 6 Sit to Stand (QC): 6 Rollin Roll Left to Right (QC): 6 Chair/Ngx-td-Aejeg Xfer(QC): 6 Car Transfer (QC): 6 Does the Patient Walk: Yes Gait (FIM): 6 Gait distance (FIM): 3=150 ft Walk 10 feet (QC): 6 Walk 10ft-Uneven Surface(QC): 6 Walk 50ft with 2 Turns (QC): 6 Walk 150 ft (QC): 6 Gait Assistive Device: Cane Small Base Quad Does the Pt use WC or Scooter?: No Stairs (FIM): 5 # of Steps: 4 (household level) 1 Step (curb) (QC): 6 4 Steps (QC): 6 12 Steps (QC): 88 Stairs Level Of Assist: 6 Picking up an Object (QC): 5 PT Plan Treatment/Plan Treatment Plan: Continue Plan of Care Treatment Plan: Bed Mobility, Education, Functional Activity Tania, Functional Strength, Group Therapy, Gait, Safety, Therapeutic Exercise, Transfers Treatment Duration: May 15, 2018 Frequency: At least 5 of 7 days/Wk (IRF) Estimated Hrs Per Day: 1.5 hours per day Patient and/or Family Agrees t: Yes Safety Risks/Education Patient Education: Gait Training, Transfer Techniques, Correct Positioning, W/ C Management, Disease Process, Safety Issues Teaching Recipient: Patient Teaching Methods: Demonstration, Discussion Response to Teaching: Verbalize Understanding, Return Demonstration, Reinforcement Needed Time/GCodes Time In: 800 Time Out: 900 Total Billed Treatment Time: 60 Total Billed Treatment 1,FA15m,GT15m,EX20m,WC10m G Codes Necessary: No JAIME JORDAN EDGE GLUER Apr 27, 2018 08:55
--- NOTE | 2018-04-27 08:59 | Progress Note-Urology ---
Progress Note-Urology Progress Notes/Assess & Plan Progress/Assessment & Plan TOV TODAY Final Diagnosis RETENTION XOCHITL CLIFTON MD Apr 27, 2018 08:59
--- NOTE | 2018-04-27 11:28 | Physical Therapy Daily Note ---
PT Daily Note-Current Subjective Pt. in recliner, states he is so very sleepy but agrees to seated LE exercises. Transfers Therapy Code Descriptions/Definitions Functional [place] Measure: 0=Not Assessed/NA 4=Minimal Assistance 1=Total Assistance 5=Supervision or Setup 2=Maximal Assistance 6=Modified [place] 3=Moderate Assistance 7=Complete [place] Therapy Quality Codes: 6 Independent with activity with or without an assistive device 5 Patient requires set up or clean up by helper. Patient completes activity by themselves 4 Supervision or touching assist (CGA). [place] provide cues , steadying assist 3 The helper provides less than half the effort to complete the activity 2 The helper provides more than half the effort to complete the activity 1 Dependent. The helper does all the effort to complete an activity 7 Patient refused to complete or attempt activity 9 The patient did not perform the activity before the current illness or injury 88 Not attempted due to Medical conditions or safety concerns Weight Bearing Right Lower Extremity: Right Full Weight Bearing Left Lower Extremity: Left Full Weight Bearing NWB right UE; pt presents in a sling. Exercises Supine Ex: Ankle pumps, Heel Slides, Hip abd/add Supine Reps: 12 (reclined in chair position) Seated Therapy Exercises: Ankle pumps, Long arc quads, Hip flexion Seated Reps: 12 Assessment Current Status: Good Progress PT Short Term Goals Short Term Goals Time Frame: May 01, 2018 Gait (FIM): 4 Distance (FIM): 3=150 ft Gait Assistive Device: Cane Small Base Quad Wheelchair Distance: 120' PT Group Home Goals Group Home Goals PT Group Home Goals Time Frame: May 15, 2018 Transfers (B,C,W/C) (FIM): 6 Sit to Lying (QC): 6 Lying-Sitting on Side/Bed(QC): 6 Sit to Stand (QC): 6 Rollin Roll Left to Right (QC): 6 Chair/Cdf-ia-Aleqy Xfer(QC): 6 Car Transfer (QC): 6 Does the Patient Walk: Yes Gait (FIM): 6 Gait distance (FIM): 3=150 ft Walk 10 feet (QC): 6 Walk 10ft-Uneven Surface(QC): 6 Walk 50ft with 2 Turns (QC): 6 Walk 150 ft (QC): 6 Gait Assistive Device: Cane Small Base Quad Does the Pt use WC or Scooter?: No Stairs (FIM): 5 # of Steps: 4 (household level) 1 Step (curb) (QC): 6 4 Steps (QC): 6 12 Steps (QC): 88 Stairs Level Of Assist: 6 Picking up an Object (QC): 5 PT Plan Treatment/Plan Treatment Plan: Continue Plan of Care Treatment Plan: Bed Mobility, Education, Functional Activity Tania, Functional Strength, Group Therapy, Gait, Safety, Therapeutic Exercise, Transfers Treatment Duration: May 15, 2018 Frequency: At least 5 of 7 days/Wk (IRF) Estimated Hrs Per Day: 1.5 hours per day Patient and/or Family Agrees t: Yes Time/GCodes Time In: 1100 Time Out: 1115 Total Billed Treatment Time: 15 Total Billed Treatment 1,EX15m G Codes Necessary: JAIME Brenner FINNISH RUBBER Apr 27, 2018 11:28
--- NOTE | 2018-04-27 14:18 | Occupational Ther Daily Note ---
OT Current Status-Daily Note Subjective No pain reported. Appearance Pt. is up in chair in room. Sleeping off and on. Requires cues to stay awake. Agrees to work with OT. Mental Status/Objective Patient Orientation: Unable to Assess Therapy Code Descriptions/Definitions Functional [place] Measure: 0=Not Assessed/NA 4=Minimal Assistance 1=Total Assistance 5=Supervision or Setup 2=Maximal Assistance 6=Modified [place] 3=Moderate Assistance 7=Complete [place] Attachments: IV ADL-Treatment Therapy Code Descriptions/Definitions Functional [place] Measure: 0=Not Assessed/NA 4=Minimal Assistance 1=Total Assistance 5=Supervision or Setup 2=Maximal Assistance 6=Modified [place] 3=Moderate Assistance 7=Complete [place] Therapy Quality Codes: 6 Independent with activity with or without an assistive device 5 Patient requires set up or clean up by helper. Patient completes activity by themselves 4 Supervision or touching assist (CGA). [place] provide cues , steadying assist 3 The helper provides less than half the effort to complete the activity 2 The helper provides more than half the effort to complete the activity 1 Dependent. The helper does all the effort to complete an activity 7 Patient refused to complete or attempt activity 9 The patient did not perform the activity before the current illness or injury 88 Not attempted due to Medical conditions or safety concerns Grooming (FIM): 4 (Pt. did brush his gums while seated at the sink. Declines putting in dentures.) Oral Hygiene (QC): 4 Bathing (FIM): 2 (Pt. will "dab" at chest and one arm with washcloth. Otherwise, requires full assistance to wash all parts.) Shower/Bathe Self (QC): 2 Upper Body (FIM): 1 (Pt. attempts with max cues to open bottom of shirt. However, he is unable to do this and so OT dons this for him, and dons sling.) Upper Body Dressing (QC): 1 Lower Body Dressing (FIM): 1 Lower Body Dressing (QC): 1 On/Off Footwear (QC): 1 Transfers (B, C, W/C) (FIM): 3 (Mod assist sit-stand. Once in standing, pt. requires increased time and min assist to transfer to shower chair.) Shower Transfer(FIM): 1 (shower transfer via shower chair.) Other Treatment After ADL treatment, pt. encouraged to self propel wheelchair to therapy gym. Pt. encouraged to use bilateral feet and left hand to propel chair. Pt. attempted, but still required mod assist. Once in therapy gym, OT encouraged pt. to participate in fine motor coordination/strengthening task. Pt. given therapy pegs, with encouragement to reach for them. Pt. able to pick them up but unable to place them in the correct holes. When questioned, pt. states that he can't see well. Pt. given a different fine motor task with small clothespins for pincer application services manager. Pt. able to participate in this activity, but still had difficulty placing them in the correct places. Pt. taken back to room and transferred to chair with mod assist. All needs met. Education OT Patient Education: Correct positioning, Exercise program, Modified ADL techniques, Progress toward Goal/Update tx plan, Purpose of tx/functional activities, Reviewed precautions, Rehab process, Transfer techniques Teaching Recipient: Patient Teaching Methods: Demonstration, Discussion Response to Teaching: Verbalize Understanding, Return Demonstration OT Short Term Goals Short Term Goals Time Frame: Apr 24, 2018 Eating(FIM): 5 Grooming(FIM): 5 Bathing(FIM): 3 Upper Body Dressing(FIM): 3 Lower Body Dressing(FIM): 2 Toileting(FIM): 3 Toilet/Commode Transfer(FIM): 4 Shower Transfer(FIM): 3 Additional Short Term Goals: 1-Demonstrate ADL Tasks, 2-Verbalize Understanding , 3-ImproveStrength/Tania 1=Demonstrate adherence to instructed precautions during ADL tasks. 2=Patient will verbalize/demonstrate understanding of assistive devices/ modifications for ADL. 3=Patient will improve strength/tolerance for activity to enable patient to perform ADL's. OT Longterm Goals Longterm Goals Time Frame: May 08, 2018 Eating (FIM): 5 Eating (QC): 5 Groomin Oral Hygiene (QC): 5 Bathing(FIM): 4 Shower/Bathe Self (QC): 4 Upper Body Dressing(FIM): 5 Upper Body Dressing (QC): 5 Lower Body Dressing(FIM): 5 Lower Body Dressing (QC): 5 On/Off Footwear (QC): 5 Toileting(FIM): 5 Toileting Hygiene (QC): 5 Toilet/Commode Transfer(FIM): 5 Toilet/Commode Transfer (QC): 5 Shower Transfer(FIM): 5 Additional Goals: 1-Demonstrate ADL Tasks, 2-Verbalize Understanding, 3- ImproveStrength/Tania 1=Demonstrate adherence to instructed precautions during ADL tasks. 2=Patient will verbalize/demonstrate understanding of assistive devices/ modifications for ADL. 3=Patient will improve strength/tolerance for activity to enable patient to perform ADL's. OT Education/Plan Problem List/Assessment Assessment: Decreased Activ Tolerance, Decreased UE Strength, Dependent Transfers, Impaired Bed Mobility, Impaired Cognition, Impaired Coordination, Impaired Funct Balance, Impaired I ADL's, Impaired Self-Care Skills, Restricted Funct UE ROM Pt to benefit from skilled OT intervention for ADL training, transfers, strengthening, and safety education to increase level of independence and allow safe discharge plan. Discharge Recommendations Plan/Recommendations: Continue POC Therapy D/C Recommendations: 24 hr Supervision Treatment Plan/Plan of Care Treatment,Training & Education: Yes Patient would benefit from OT for education, treatment and training to promote independence in ADL's, mobility, safety and/or upper extremity function for ADL' s. Plan of Care: ADL Retraining, Functional Mobility, Group Exercise/Act as Ind, UE Funct Exercise/Act Treatment Duration: May 08, 2018 Frequency: At least 5 of 7 days/Wk (IRF) Estimated Hrs Per Day: 1.5 hours per day Agreement: Yes Rehab Potential: Fair Time/GCodes Start Time: 09:10 Stop Time: 10:25 Total Time Billed (hr/min): 75 Billed Treatment Time 1, ADL x 45minutes, FA x 30minutes SHAHANA GUZMAN OT Apr 27, 2018 14:18
--- NOTE | 2018-04-27 14:27 | Speech Therapy Daily Note ---
Speech Daily Progress Note Subjective Date Seen by Provider: Apr 27, 2018 Time Seen by Provider: 00:30 Patient was getting his compression socks put on by nursing when I entered the room for ST session this afternoon. Objective Patient completed memory tasks with 60% accuracy given mod to max cuing and/or repetitions. Assessment Assessment Current Status: Fair Progress Treatment Plan Continue Plan of Care Communication Comprehension: 4 Expression: 5 Social Cognition Social Interaction: 5 Problem Solvin Memory: 4 Speech Short Term Goals Short Term Goals Short Term Goals 1) Patient will complete memory tasks with 80% or greater with minimal cues. 2) Patient will complete problem solving tasks with 80% or greater with minimal cues. 3) Patient will follow directions for increased safety to meet his personal daily needs at 80% or greater with minimal cues. Speech Longterm Goals Is Manager Goals Patient will improve his overall level of safety and independence to return to his prior level of functioning. Speech-Plan Patient/Family Goals Patient/Family Goals: Patient plans on returning home with his post rehab. Treatment Plan Speech Therapy Treatment Plan: Continue Plan of Care Patient's plan to return home after rehab is questionable due to his moderate dementia. Treatment Duration: Apr 30, 2018 Frequency: 5 times per week Estimated Hrs Per Day: .25 hour per day Rehab Potential: Fair Barriers to Learning: Moderate dementia. Pt/Family Agrees to Plan: Yes Safety Risks/Education Teaching Recipient: Patient Teaching Methods: Discussion Response to Teaching: Verbalize Understanding Education Topics Provided: Safety and utilization of the call light. Time Speech Therapy Time In: 13:30 Speech Therapy Time Out: 14:00 Total Billed Time: 30 Billed Treatment Time 1, ISATU Fitch Apr 27, 2018 14:27
--- NOTE | 2018-04-27 15:33 | Pulmonary Progress Note ---
Subjective Time Seen by a Provider: 15:32 Subjective/Events-last exam NO complications noted. Sepsis Event Evaluation Height, Weight, BMI Height: 5'8.00" Weight: 169lbs. 2.0oz. 76.711524oc; 31.9 BMI Method: Exam Exam Vital Signs Date Time Temp Pulse Resp B/P (MAP) Pulse Ox O2 Delivery O2 Flow Rate FiO2 04/27/18 09:00 Room Air 04/27/18 06:41 90 Room Air 04/27/18 05:13 99.8 89 20 123/69 (87) 93 Room Air 04/26/18 20:48 Room Air 04/26/18 20:10 94 Room Air 04/26/18 19:59 91 Room Air 04/26/18 17:57 98.3 90 20 127/69 (88) 96 Nasal Cannula 2.00 I & O 04/27/18 07:00 Intake Total 450 ml Output Total 800 ml Balance -350 ml Height & Weight Height: 5'8.00" Weight: 169lbs. 2.0oz. 76.711464zu; 31.9 BMI Method: General Appearance: No Apparent Distress, WD/WN, Chronically ill, Obese Neck: Full Range of Motion, Normal Inspection, Non Tender, Supple Respiratory: Chest Non Tender, No Accessory Muscle Use, No Respiratory Distress , Crackles, Decreased Breath Sounds, Wheezing Cardiovascular: Regular Rate, Rhythm, No Edema, No Gallop, No JVD, No Murmur, Normal Peripheral Pulses Extremity: Normal Capillary Refill, Normal Inspection, Normal Range of Motion ( except right arm), Non Tender, No Calf Tenderness, Other (weakness in all extremities) Neurologic/Psychiatric: Alert, Oriented x3, No Motor/Sensory Deficits, deputy 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
--- NOTE | 2018-04-27 16:18 | NUR ---
PROTECTION MANAGER informed by RN that Dr. Pinto placed [facility] consult last week due to worsening confusion and hallucinations. consult initiated on ; however, patient was somnolent from pain medication. PROTECTION MANAGER reached out to Blade at [facility], he intends to reevaluate patient tomorrow morning. PROTECTION MANAGER provided information to RN.
[2018-04-27 17:20] VITALS: BP 133/77
[2018-04-27] MEDS: TAMSULOSIN 0.4 MG (FLOMAX) CAP PO SCH (18:27)
--- NOTE | 2018-04-27 19:11 | NUR ---
bedside report received from KOBI HERNANDEZ, assume care of pt
--- NOTE | 2018-04-27 20:00 | NUR ---
resting in bed, asking for scissors to cut sling strap advised pt he has broken arm & sling is there to support broken arm, verbalized understanding but will need to be reminded later as pt is confused, tried orienting pt but can not retain information but for short periods, bed alarm on, side rails up x4, tele sitter in place, freq observations
--- NOTE | 2018-04-27 21:00 | NUR ---
assessments & interventions completed, see assessments & interventions, took meds without difficulty one at a time without choking, did IS with assistance
[2018-04-27] MEDS: MELATONIN 3 MG TABLET PO PRN (21:23)
[2018-04-27] MEDS: MONTELUKAST 10 MG (SINGULAIR) TAB PO SCH (21:24)
--- NOTE | 2018-04-27 21:30 | NUR ---
voided 75ml clear josué colored urine & changed brief as was wet, cleaned & new brief on
--- NOTE | 2018-04-27 21:40 | NUR ---
bladder scan showed 116ml after voiding 75ml
[2018-04-28 05:06] VITALS: BP 150/79
[2018-04-28] MEDS ORDERED: LIDOCAINE UROJET 2% GEL 10 ML PKG ONE (06:04)
--- NOTE | 2018-04-28 06:10 | NUR ---
bladder scan showed 485ml, called orders received for straight cath
[2018-04-28] MEDS ORDERED: LIDOCAINE UROJET 2% GEL 10 ML PKG TOP ONE (06:15)
--- NOTE | 2018-04-28 06:21 | Pulmonary Progress Note ---
Subjective Time Seen by a Provider: 06:19 Sepsis Event Evaluation Height, Weight, BMI Height: 5'8.00" Weight: 169lbs. 2.0oz. 76.318620sd; 31.9 BMI Method: Exam Exam Vital Signs Date Time Temp Pulse Resp B/P (MAP) Pulse Ox O2 Delivery O2 Flow Rate FiO2 04/28/18 05:06 98.4 95 20 150/79 (102) 94 Room Air 04/27/18 21:00 Room Air 04/27/18 20:02 92 Room Air 04/27/18 17:20 97.6 97 18 133/77 (95) 93 Room Air 04/27/18 16:26 92 Room Air 04/27/18 09:00 Room Air 04/27/18 06:41 90 Room Air I & O 04/28/18 07:00 Intake Total 475 ml Output Total 400 ml Balance 75 ml Height & Weight Height: 5'8.00" Weight: 169lbs. 2.0oz. 76.200505lo; 31.9 BMI Method: General Appearance: No Apparent Distress, WD/WN, Chronically ill, Obese Neck: Full Range of Motion, Normal Inspection, Non Tender, Supple Respiratory: Chest Non Tender, No Accessory Muscle Use, No Respiratory Distress , Crackles, Decreased Breath Sounds, Wheezing Cardiovascular: Regular Rate, Rhythm, No Edema, No Gallop, No JVD, No Murmur, Normal Peripheral Pulses Extremity: Normal Capillary Refill, Normal Inspection, Normal Range of Motion ( except right arm), Non Tender, No Calf Tenderness, Other (weakness in all extremities) Neurologic/Psychiatric: Alert, Oriented x3, No Motor/Sensory Deficits, 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
--- NOTE | 2018-04-28 06:22 | NUR ---
straight cath & received 425ml josué colored urine
[2018-04-28] MEDS: CATHETER FLUSH 10 ML SYR IV SCH ×3 (06:31→23:18)
[2018-04-28] MEDS: RT-ADVAIR HFA 115/21 MCG PER PUFF IH SCH ×2 (06:42→20:30)
[2018-04-28] MEDS: RT-ALBUTEROL/IPRATROPIUM 3 ML (DUONEB) VIAL INH SCH ×3 (06:42→20:30)
--- NOTE | 2018-04-28 07:15 | NUR ---
bedside report given to KOBI HERNANDEZ
[2018-04-28] MEDS: PANTOPRAZOLE 40 MG (PROTONIX) TAB PO SCH ×2 (07:27→21:11)
--- NOTE | 2018-04-28 07:27 | Progress Note-Urology ---
Progress Note-Urology Progress Notes/Assess & Plan Progress/Assessment & Plan HAD TO STRAIGHT CATH THIS AM FOR 400CC. START URECHOLINE. Final Diagnosis RETENTION XOCHITL CLIFTON MD Apr 28, 2018 07:27
--- NOTE | 2018-04-28 08:28 | PM&R Progress Note ---
Subjective HPI/CC On Admission Date Seen by Provider: Apr 28, 2018 Time Seen by Provider: 08:30 CC: Critical illness myopathy w/metabolic encephalopathy HPI: This is a 77yoWM who was [facility] due to critical illness with acute renal failure of 3.7 and dislocated right shoulder with right proximal humerus fracture with sepsis and UTI. Patient was intubated for a short time for AECOPD and metabolic acidosis along with respiratory acidosis. Patient had multiple falls at his home 5 days prior to admit and presented to [facility] with confusion and acute renal failure. Pt was thought to have meningitis but LP revealed no growth. UTI caused bacteremia and sepsis and patient was ultimately placed on Levaquin and will complete that treatment in 7 more days. Patient does have h/o bladder cancer and having urinary frequency so will consult Dr Quiñonez Urology. [facility] [place], [place] as his PCP due to serving in the [employer] for 12 years then serving as a [employer] for 40+ years. His new PCP will be Dr Lavonne Paul. Patient is a poor historian and has multiple chronic illnesses that will require extensive medical management in order to optimize prior to DC home. Subjective/Events-last exam Senior behavioral unit evaluated him to be hallucinating and significant dementia with slum score of 11 so will discharge to senior behavioral unit on . Urecholine and Flomax initiated due to urinary retention per Dr. Quiñonez. Overall has no issues otherwise. Only eats hash browns and chocolate. 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 remains guarded. Sometimes inappropriate with the nurses so will try to work on that in the senior behavioral unit. Review of Systems General: Fatigue Genitourinary: Retention Musculoskeletal: arm pain Neurological: Confusion Objective Exam Vital Signs Vital Signs Date Time Temp Pulse Resp B/P (MAP) Pulse Ox O2 Delivery O2 Flow Rate FiO2 04/28/18 15:39 97.4 86 14 120/80 (93) 93 Room Air 04/26/18 17:57 2.00 Capillary Refill : Less Than 3 Seconds General Appearance: No Apparent Distress, WD/WN, Chronically ill, Obese Neck: Full Range of Motion, Normal Inspection, Non Tender, Supple Respiratory: Chest Non Tender, Lungs Clear, Normal Breath Sounds, No Accessory Muscle Use, No Respiratory Distress, Wheezing Cardiovascular: Regular Rate, Rhythm, No Edema, No Gallop, No JVD, No Murmur, Normal Peripheral Pulses Gastrointestinal: Normal Bowel Sounds, No Organomegaly, No Pulsatile Mass, Non Tender, Soft Back: Normal Inspection, No CVA Tenderness, No Vertebral Tenderness Extremity: Normal Capillary Refill, Normal Inspection, Normal Range of Motion ( except right arm), Non Tender, No Calf Tenderness, Other (weakness in all extremities) Neurologic/Psychiatric: Alert, Oriented x3, No Motor/Sensory Deficits, beef grader II- XII Norm as Tested, Depressed Affect, Disoriented, Other (generalized motor weakness) Skin: Normal Color, Warm/Dry Lymphatic: No Adenopathy Results/Procedures Lab Patient resulted labs reviewed. Assessment/Plan Assessment and Plan Assess & Plan/Chief Complaint Assessment: s/p critical illness s/p sepsis Falls Confusion s/p ARF Severe anemia iron deficiency type receiving Venofer iron infusions COPD s/p VDRF Right proximal humerus fracture in sling HTN HLP Poor nutrition status h/o bladder cancer Incontinence with frequency prompting Urology consultation who completed cysto and it was normal but now requiring catheter placement but now DC and needs in/ out cath Dementia at baseline? Plan: Iron level 25 confirmed low so empirically treated already with IV iron infusions Pain control BM regimen Urology consultation is appreciated Monitor closely melvin lung function Monitor labs periodically May need NH if can't improve with intensive therapies HLIVF [facility] evaluation and will be admitted on for hallucination treatment (1) Encephalopathy (2) History of sepsis (3) History of renal failure (4) Proximal humerus fracture (5) Abnormal albumin (6) History of bladder cancer (7) PTSD (post-traumatic stress disorder) (8) Hypertension (9) Skin cancer (10) UTI (urinary tract infection) (11) Wheezing (12) Incontinence of urine (13) Hyperlipemia (14) Confusion (15) Anemia (16) COPD (chronic obstructive pulmonary disease) (17) Hallucinations (18) Dementia Clinical Quality Measures DVT/VTE Risk/Contraindication: Risk Factor Score Per Nursin RFS Level Per Nursing on Admit: 4+=Very High HILLARY BROWN DO Apr 28, 2018 08:28
[2018-04-28] MEDS: MICONAZOLE 2% POWDER (DESENEX AF) 90 GM TOP SCH ×2 (09:00→21:21)
[2018-04-28] MEDS: NYSTATIN CREAM (MYCOSTATIN) 30 GM TUBE TP SCH ×2 (09:00→21:21)
[2018-04-28] MEDS: LORATADINE (CLARITIN) 10 MG TAB PO SCH (09:06)
[2018-04-28] MEDS: SENNA W/DOCUSATE (SENOKOT S) TABLET PO SCH ×2 (09:06→21:11)
[2018-04-28] MEDS: LACTOBACILLUS ACIDOPHILUS (PROBIOTIC) CAPSULE PO SCH (09:06)
--- NOTE | 2018-04-28 09:28 | NUR ---
Nolan from [facility] came to assess patient's for potential inpatient psych placement. Following intake and discussion with Dr. Pinto, patient has been accepted for placement at facility on . TRIM MOUNTER will speak with patient's in regards to this recommendation. Addendum: 04/29/18 at 1022 by ALLIE MORENO SS TRIM MOUNTER met with patient, spouse and patient's daughter via phone to discuss recommendation of [facility] unit due to continued confusion, impulsivity and hallucinations. All are in agreement with this. TRIM MOUNTER reviewed IMM with patient' due to patient's confusion. Due to confusion and impulsivity, patient may be appropriate for wheelchair van transport. Patient is scheduled for discharge tomorrow (04/30) once [facility] bed becomes available.
--- NOTE | 2018-04-28 11:22 | Physical Therapy Daily Note ---
PT Daily Note-Current Subjective Pt sitting in recliner with Nurse giving meds upon arrival. Pt agrees to PT. Pt had Behavioral Health visit this morning due to continued confusion. Pain Location: No Pain Reported Mental Status Patient Orientation: Person, Confused, Place Attachments: Other-See Comments (Sling for RUE) Transfers Therapy Code Descriptions/Definitions Functional [place] Measure: 0=Not Assessed/NA 4=Minimal Assistance 1=Total Assistance 5=Supervision or Setup 2=Maximal Assistance 6=Modified [place] 3=Moderate Assistance 7=Complete [place] Therapy Quality Codes: 6 Independent with activity with or without an assistive device 5 Patient requires set up or clean up by helper. Patient completes activity by themselves 4 Supervision or touching assist (CGA). [place] provide cues , steadying assist 3 The helper provides less than half the effort to complete the activity 2 The helper provides more than half the effort to complete the activity 1 Dependent. The helper does all the effort to complete an activity 7 Patient refused to complete or attempt activity 9 The patient did not perform the activity before the current illness or injury 88 Not attempted due to Medical conditions or safety concerns Scootin Sit to/from Stand: 4 Sit to Lying (QC): 4 Sit to Stand (QC): 4 Weight Bearing Right Lower Extremity: Right Full Weight Bearing Left Lower Extremity: Left Full Weight Bearing NWB right UE; pt presents in a sling. Gait Training Does the Patient Walk?: Yes Distance (FIM): 3=150 ft Distance: 150' Walk 10 feet (QC): 4 Walk 50 ft with 2 Turns(QC): 4 Walk 150 ft (QC): 4 Gait Level of Assist: 4 Gait Persons Needed: 1 Gait Assistive Device: Handheld Assist Wheelchair Training Does the Pt Use a Wheelchair?: Yes Wheelchair Distance: 3=150 ft Distance: 150' Wheelchair Level of Assist: 4 Wheel 50 ft with 2 turns (QC): 4 Wheel 150 ft (QC): 4 Type of Wheelchair: Manual Exercises Supine Ex: Ankle pumps, Heel Slides, Straight leg raise Supine Reps: 15 Seated Therapy Exercises: Long arc quads, Hip flexion, Kicking activity Seated Reps: 15 Treatments Pt completes Supine Ex with VC for instruction & redirection. Pt also completes Seated Ex at EOM. Pt propels WC in hallway with some assistance from FINISHED GARMENT INSPECTOR as pt fatigues and for VC. Pt ambulates in hallway using hand rails then HIGH SCHOOL SOCIAL STUDIES TUTOR until fatigued. Pt uses restroom at end of tx before returning to recliner to rest. Pt has all needs met. Assessment Current Status: Good Progress Pt is improving with strength and capability of completing tasks. Pt continues to demonstrate confusion not only needing redirection but also at times tells stories that do not make sense and was screened by Behavioral Health for this reason. PT Short Term Goals Short Term Goals Time Frame: May 01, 2018 Gait (FIM): 4 Distance (FIM): 3=150 ft Gait Assistive Device: Cane Small Base Quad Wheelchair Distance: 120' PT Senior Living Goals Senior Living Goals PT Compound Finisher Goals Time Frame: May 15, 2018 Transfers (B,C,W/C) (FIM): 6 Sit to Lying (QC): 6 Lying-Sitting on Side/Bed(QC): 6 Sit to Stand (QC): 6 Rollin Roll Left to Right (QC): 6 Chair/Rgu-xi-Phhet Xfer(QC): 6 Car Transfer (QC): 6 Does the Patient Walk: Yes Gait (FIM): 6 Gait distance (FIM): 3=150 ft Walk 10 feet (QC): 6 Walk 10ft-Uneven Surface(QC): 6 Walk 50ft with 2 Turns (QC): 6 Walk 150 ft (QC): 6 Gait Assistive Device: Cane Small Base Quad Does the Pt use WC or Scooter?: No Stairs (FIM): 5 # of Steps: 4 (household level) 1 Step (curb) (QC): 6 4 Steps (QC): 6 12 Steps (QC): 88 Stairs Level Of Assist: 6 Picking up an Object (QC): 5 PT Plan Problem List Problem List: Activity Tolerance, Functional Strength, Safety, Balance, Gait, Transfer Treatment/Plan Treatment Plan: Continue Plan of Care Treatment Plan: Bed Mobility, Education, Functional Activity Tania, Functional Strength, Group Therapy, Gait, Safety, Therapeutic Exercise, Transfers Treatment Duration: May 15, 2018 Frequency: At least 5 of 7 days/Wk (IRF) Estimated Hrs Per Day: 1.5 hours per day Patient and/or Family Agrees t: Yes Safety Risks/Education Patient Education: Gait Training, Transfer Techniques, Correct Positioning, Safety Issues Teaching Recipient: Patient Teaching Methods: Discussion Response to Teaching: Reinforcement Needed Time/GCodes Time In: 900 Time Out: 945 Total Billed Treatment Time: 45 Total Billed Treatment 1, GT (20m), WCH (10m) & EX (15m) G Codes Necessary: LLOYD Seo PTA Apr 28, 2018 11:22
[2018-04-28] MEDS: BETHANECHOL 25 MG (URECHOLINE) TAB PO SCH ×3 (12:19→21:10)
--- NOTE | 2018-04-28 13:28 | Occupational Ther Daily Note ---
OT Current Status-Daily Note Subjective Pt. does not report pain, but does state that he is tired. Appearance Pt. up in chair. Agrees to work with OT. Mental Status/Objective Patient Orientation: Confused, Unable to Assess Therapy Code Descriptions/Definitions Functional [place] Measure: 0=Not Assessed/NA 4=Minimal Assistance 1=Total Assistance 5=Supervision or Setup 2=Maximal Assistance 6=Modified [place] 3=Moderate Assistance 7=Complete [place] Pt. up in chair. Pt. is dressed from yesterday. Declines bathing or changing clothing. Pt. does agree to work however with OT. Pt. is groggy and confused at times. ADL-Treatment Therapy Code Descriptions/Definitions Functional [place] Measure: 0=Not Assessed/NA 4=Minimal Assistance 1=Total Assistance 5=Supervision or Setup 2=Maximal Assistance 6=Modified [place] 3=Moderate Assistance 7=Complete [place] Therapy Quality Codes: 6 Independent with activity with or without an assistive device 5 Patient requires set up or clean up by helper. Patient completes activity by themselves 4 Supervision or touching assist (CGA). [place] provide cues , steadying assist 3 The helper provides less than half the effort to complete the activity 2 The helper provides more than half the effort to complete the activity 1 Dependent. The helper does all the effort to complete an activity 7 Patient refused to complete or attempt activity 9 The patient did not perform the activity before the current illness or injury 88 Not attempted due to Medical conditions or safety concerns Grooming (FIM): 4 (Pt. agrees to brush his gums with toothbrush and toothpaste. Pt. requires full set up to prepare brush for teeth. Requires cues and assistance at times.) Oral Hygiene (QC): 3 Transfers (B, C, W/C) (FIM): 3 (Mod assist at times to stand. Min assist to ambulate with hand held assistance. Pt. walked multiple times with hand held assist and several rest breaks.) Pt. is somewhat confused. Declines changing clothing. Transfers to wheelchair with mod assist. Completed grooming tasks seated at wheelchair. After this, pt. was encouraged to self propel wheelchair to therapy gym. Pt. has difficulty with this. Once in therapy gym, pt. participated in UE activity with left hand. Pt. encouraged to utilize left UE to pinch therapy clothespin, raise arm with arm arc, and complete basic ROM. OT doffed sling on right UE and completed gentle retrograde massage for swelling. OT also encouraged AROM and AAROM to right hand, wrist, and elbow. OT completed gentle PROM to right UE overall. Pt. also practiced standing at parallel bars with CGA. Stood 3 times with emphasis to rock back and forth, and to march in place. Pt. states that he is tired. Pt. ambulated back to room with hand held assist. All needs met back in room. Education OT Patient Education: Correct positioning, Exercise program, Modified ADL techniques, Progress toward Goal/Update tx plan, Purpose of tx/functional activities, Reviewed precautions, Rehab process, Transfer techniques Teaching Recipient: Patient Teaching Methods: Demonstration, Discussion Response to Teaching: Verbalize Understanding, Return Demonstration OT Short Term Goals Short Term Goals Time Frame: Apr 24, 2018 Eating(FIM): 5 Grooming(FIM): 5 Bathing(FIM): 3 Upper Body Dressing(FIM): 3 Lower Body Dressing(FIM): 2 Toileting(FIM): 3 Toilet/Commode Transfer(FIM): 4 Shower Transfer(FIM): 3 Additional Short Term Goals: 1-Demonstrate ADL Tasks, 2-Verbalize Understanding , 3-ImproveStrength/Tania 1=Demonstrate adherence to instructed precautions during ADL tasks. 2=Patient will verbalize/demonstrate understanding of assistive devices/ modifications for ADL. 3=Patient will improve strength/tolerance for activity to enable patient to perform ADL's. OT Fdc Goals Straightedge Machine Operator Helper Goals Time Frame: May 08, 2018 Eating (FIM): 5 Eating (QC): 5 Groomin Oral Hygiene (QC): 5 Bathing(FIM): 4 Shower/Bathe Self (QC): 4 Upper Body Dressing(FIM): 5 Upper Body Dressing (QC): 5 Lower Body Dressing(FIM): 5 Lower Body Dressing (QC): 5 On/Off Footwear (QC): 5 Toileting(FIM): 5 Toileting Hygiene (QC): 5 Toilet/Commode Transfer(FIM): 5 Toilet/Commode Transfer (QC): 5 Shower Transfer(FIM): 5 Additional Goals: 1-Demonstrate ADL Tasks, 2-Verbalize Understanding, 3- ImproveStrength/Tania 1=Demonstrate adherence to instructed precautions during ADL tasks. 2=Patient will verbalize/demonstrate understanding of assistive devices/ modifications for ADL. 3=Patient will improve strength/tolerance for activity to enable patient to perform ADL's. OT Education/Plan Problem List/Assessment Assessment: Decreased Activ Tolerance, Decreased UE Strength, Dependent Transfers, Impaired Bed Mobility, Impaired Cognition, Impaired Coordination, Impaired Funct Balance, Impaired I ADL's, Impaired Self-Care Skills, Restricted Funct UE ROM Pt to benefit from skilled OT intervention for ADL training, transfers, strengthening, and safety education to increase level of independence and allow safe discharge plan. Discharge Recommendations Plan/Recommendations: Continue POC Therapy D/C Recommendations: 24 hr Supervision Treatment Plan/Plan of Care Treatment,Training & Education: Yes Patient would benefit from OT for education, treatment and training to promote independence in ADL's, mobility, safety and/or upper extremity function for ADL' s. Plan of Care: ADL Retraining, Functional Mobility, Group Exercise/Act as Ind, UE Funct Exercise/Act Treatment Duration: May 08, 2018 Frequency: At least 5 of 7 days/Wk (IRF) Estimated Hrs Per Day: 1.5 hours per day Agreement: Yes Rehab Potential: Fair Time/GCodes Start Time: 10:00 Stop Time: 11:15 Total Time Billed (hr/min): 75 Billed Treatment Time 1, ADL x 15minutes, FA x 60minutes SHAHANA GUZMAN OT Apr 28, 2018 13:28
--- NOTE | 2018-04-28 14:25 | NUR ---
PT EATING POORLY, 25% MEALS, AND MOSTLY JUST DRINKING ENLIVE. PT GETTING ENLIVE TID TO PROVIDE 1080 KCAL, 60 GRAMS PROTEIN. CONT TO ENCOURAGE PO INTAKE.
[2018-04-28 15:39] VITALS: BP 120/80
--- NOTE | 2018-04-28 15:40 | Physical Therapy Daily Note ---
PT Daily Note-Current Subjective Pt sitting in recliner upon arrival. Pt agrees to PT. Pain Location: No Pain Reported Mental Status Patient Orientation: Person, Confused, Place Attachments: Other-See Comments (Sling for RUE) Transfers Therapy Code Descriptions/Definitions Functional [place] Measure: 0=Not Assessed/NA 4=Minimal Assistance 1=Total Assistance 5=Supervision or Setup 2=Maximal Assistance 6=Modified [place] 3=Moderate Assistance 7=Complete [place] Therapy Quality Codes: 6 Independent with activity with or without an assistive device 5 Patient requires set up or clean up by helper. Patient completes activity by themselves 4 Supervision or touching assist (CGA). [place] provide cues , steadying assist 3 The helper provides less than half the effort to complete the activity 2 The helper provides more than half the effort to complete the activity 1 Dependent. The helper does all the effort to complete an activity 7 Patient refused to complete or attempt activity 9 The patient did not perform the activity before the current illness or injury 88 Not attempted due to Medical conditions or safety concerns Scootin Sit to/from Stand: 4 Sit to Stand (QC): 4 Weight Bearing Right Lower Extremity: Right Full Weight Bearing Left Lower Extremity: Left Full Weight Bearing NWB right UE; pt presents in a sling. Gait Training Does the Patient Walk?: Yes Distance (FIM): 3=150 ft Distance: 150' Walk 10 feet (QC): 4 Walk 50 ft with 2 Turns(QC): 4 Walk 150 ft (QC): 4 Gait Level of Assist: 4 Gait Persons Needed: 1 Gait Assistive Device: Handheld Assist Pt uses PHYSICAL THERAPIST TECHNICIAN to fight his retropulsivity. Treatments Pt uses restroom then ambulates in hallway with SLASHER TENDER HELPER, taking rest breaks as needed. Assessment Current Status: Good Progress Pt continues to struggle with confusion and retropulsivity with transfers and ambulation. PT Short Term Goals Short Term Goals Time Frame: May 01, 2018 Gait (FIM): 4 Distance (FIM): 3=150 ft Gait Assistive Device: Cane Small Base Quad Wheelchair Distance: 150' PT Longterm Goals Longterm Goals PT Freight Service Inspector Goals Time Frame: May 15, 2018 Transfers (B,C,W/C) (FIM): 6 Sit to Lying (QC): 6 Lying-Sitting on Side/Bed(QC): 6 Sit to Stand (QC): 6 Rollin Roll Left to Right (QC): 6 Chair/Klk-yu-Ujsno Xfer(QC): 6 Car Transfer (QC): 6 Does the Patient Walk: Yes Gait (FIM): 6 Gait distance (FIM): 3=150 ft Walk 10 feet (QC): 6 Walk 10ft-Uneven Surface(QC): 6 Walk 50ft with 2 Turns (QC): 6 Walk 150 ft (QC): 6 Gait Assistive Device: Cane Small Base Quad Does the Pt use WC or Scooter?: No Stairs (FIM): 5 # of Steps: 4 (household level) 1 Step (curb) (QC): 6 4 Steps (QC): 6 12 Steps (QC): 88 Stairs Level Of Assist: 6 Picking up an Object (QC): 5 PT Plan Problem List Problem List: Activity Tolerance, Functional Strength, Safety, Balance, Gait, Transfer Treatment/Plan Treatment Plan: Continue Plan of Care Treatment Plan: Bed Mobility, Education, Functional Activity Tania, Functional Strength, Group Therapy, Gait, Safety, Therapeutic Exercise, Transfers Treatment Duration: May 15, 2018 Frequency: At least 5 of 7 days/Wk (IRF) Estimated Hrs Per Day: 1.5 hours per day Patient and/or Family Agrees t: Yes Safety Risks/Education Patient Education: Gait Training, Transfer Techniques, Correct Positioning, Safety Issues Teaching Recipient: Patient Teaching Methods: Discussion Response to Teaching: Reinforcement Needed Time/GCodes Time In: 1245 Time Out: 1315 Total Billed Treatment Time: 30 Total Billed Treatment 1, GT (20m) & FA (10m) G Codes Necessary: LLOYD Seo SLASHER TENDER HELPER Apr 28, 2018 15:40
--- NOTE | 2018-04-28 16:56 | Speech Therapy Daily Note ---
Speech Daily Progress Note Subjective Date Seen by Provider: Apr 28, 2018 Time Seen by Provider: 00:30 Patient resting in his recliner when I entered his room for skilled speech therapy. His was present during the session. Objective Patient completed simple conversational tasks related to himself with 60% accuracy with moderate verbal cues. Assessment Assessment Current Status: Fair Progress Treatment Plan Continue Plan of Care Communication Comprehension: 4 Expression: 5 Social Cognition Social Interaction: 5 Problem Solvin Memory: 4 Speech Short Term Goals Short Term Goals Short Term Goals 1) Patient will complete memory tasks with 80% or greater with minimal cues. 2) Patient will complete problem solving tasks with 80% or greater with minimal cues. 3) Patient will follow directions for increased safety to meet his personal daily needs at 80% or greater with minimal cues. Speech [facility] Goals [facility] Goals Patient will improve his overall level of safety and independence to return to his prior level of functioning. Speech-Plan Patient/Family Goals Patient/Family Goals: Patient is being considered for the [facility] post rehab. Treatment Plan Speech Therapy Treatment Plan: Continue Plan of Care Patient is confused and requires frequent redirection. Treatment Duration: Apr 30, 2018 Frequency: 5 times per week Estimated Hrs Per Day: .25 hour per day Rehab Potential: Fair Barriers to Learning: Moderate dementia Pt/Family Agrees to Plan: Yes Safety Risks/Education Teaching Recipient: Patient, Significant Other Teaching Methods: Discussion Response to Teaching: Verbalize Understanding Education Topics Provided: Safety within his room Time Speech Therapy Time In: 15:30 Speech Therapy Time Out: 16:00 Total Billed Time: 30 Billed Treatment Time [address] Apr 28, 2018 16:56
[2018-04-28] MEDS: TAMSULOSIN 0.4 MG (FLOMAX) CAP PO SCH (17:11)
--- NOTE | 2018-04-28 19:07 | NUR ---
bedside report received from KOBI HERNANDEZ, assume care of pt
--- NOTE | 2018-04-28 19:20 | NUR ---
up ambulating in capps with 1 person assist ambulated whole length of court area tolerated well the back to chair with chair alarm
--- NOTE | 2018-04-28 20:10 | NUR ---
back to bed with bed alarm & side rails up x4
--- NOTE | 2018-04-28 21:00 | NUR ---
assessments & interventions completed, see assessments & interventions, took meds without choking, one at a time
[2018-04-28] MEDS: MELATONIN 3 MG TABLET PO PRN (21:10)
[2018-04-28] MEDS: MONTELUKAST 10 MG (SINGULAIR) TAB PO SCH (21:11)
--- NOTE | 2018-04-28 22:45 | NUR ---
bladder scan showed 148ml
--- NOTE | 2018-04-29 03:05 | NUR ---
post void bladder scan showed 137ml
[2018-04-29 06:00] VITALS: BP 136/76
[2018-04-29] MEDS: RT-ALBUTEROL/IPRATROPIUM 3 ML (DUONEB) VIAL INH SCH (06:00)
[2018-04-29] MEDS: CATHETER FLUSH 10 ML SYR IV SCH ×2 (06:00→14:47)
[2018-04-29] MEDS: PANTOPRAZOLE 40 MG (PROTONIX) TAB PO SCH (06:43)
[2018-04-29] MEDS: BETHANECHOL 25 MG (URECHOLINE) TAB PO SCH ×2 (06:44→12:07)
--- NOTE | 2018-04-29 07:20 | NUR ---
bedside report given to LLOYD HERNANDEZ
--- NOTE | 2018-04-29 07:49 | NUR ---
report to telemat
[2018-04-29] MEDS: IRON SUCROSE 200 MG/10 ML (VENOFER) VIAL IV SCH (08:05)
[2018-04-29] MEDS: LACTOBACILLUS ACIDOPHILUS (PROBIOTIC) CAPSULE PO SCH (08:05)
[2018-04-29] MEDS: SENNA W/DOCUSATE (SENOKOT S) TABLET PO SCH (08:05)
[2018-04-29] MEDS: LORATADINE (CLARITIN) 10 MG TAB PO SCH (08:05)
[2018-04-29] MEDS: NYSTATIN CREAM (MYCOSTATIN) 30 GM TUBE TP SCH (08:06)
[2018-04-29] MEDS: MICONAZOLE 2% POWDER (DESENEX AF) 90 GM TOP SCH (08:06)
--- NOTE | 2018-04-29 08:37 | PM&R Progress Note ---
Subjective HPI/CC On Admission Date Seen by Provider: Apr 29, 2018 Time Seen by Provider: 08:45 CC: Critical illness myopathy w/metabolic encephalopathy HPI: This is a 77yoWM who was admitted to [facility] due to critical illness with acute renal failure of 3.7 and dislocated right shoulder with right proximal humerus fracture with sepsis and UTI. Patient was intubated for a short time for AECOPD and metabolic acidosis along with respiratory acidosis. Patient had multiple falls at his home 5 days prior to admit and presented to [facility] with confusion and acute renal failure. Pt was thought to have meningitis but LP revealed no growth. UTI caused bacteremia and sepsis and patient was ultimately placed on Levaquin and will complete that treatment in 7 more days. Patient does have h/o bladder cancer and having urinary frequency so will consult Dr Quiñonez Urology. Patient usually sees [facility] in [place], [place] as his PCP due to serving in the [employer] for 12 years then serving as a [employer] for 40+ years. His new PCP will be Dr Lavonne Paul. Patient is a poor historian and has multiple chronic illnesses that will require extensive medical management in order to optimize prior to DC home. Subjective/Events-[facility] . Urecholine and Flomax tolerated well, PVR 130 Overall has no issues otherwise. Only eats hash browns and chocolate. 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 termite renewal inspector in questionable given severity of his COPD Updated daughter on the sexually inappropriate behavior with the nurses and will work on this in [facility] Review of Systems General: Fatigue Objective Exam Vital Signs Vital Signs Date Time Temp Pulse Resp B/P (MAP) Pulse Ox O2 Delivery O2 Flow Rate FiO2 04/29/18 07:53 Room Air 04/29/18 06:00 97.8 91 18 136/76 (96) 93 04/26/18 17:57 2.00 Capillary Refill : Less Than 3 Seconds General Appearance: No Apparent Distress, WD/WN, Chronically ill, Obese Neck: Full Range of Motion, Normal Inspection, Non Tender, Supple Respiratory: Chest Non Tender, Lungs Clear, Normal Breath Sounds, No Accessory Muscle Use, No Respiratory Distress, Wheezing Cardiovascular: Regular Rate, Rhythm, No Edema, No Gallop, No JVD, No Murmur, Normal Peripheral Pulses Gastrointestinal: Normal Bowel Sounds, No Organomegaly, No Pulsatile Mass, Non Tender, Soft Back: Normal Inspection, No CVA Tenderness, No Vertebral Tenderness Extremity: Normal Capillary Refill, Normal Inspection, Normal Range of Motion ( except right arm), Non Tender, No Calf Tenderness, Other (weakness in all extremities) Neurologic/Psychiatric: Alert, Oriented x3, No Motor/Sensory Deficits, advertising intern II- XII Norm as Tested, Depressed Affect, Disoriented, Other (generalized motor weakness) Skin: Normal Color, Warm/Dry Lymphatic: No Adenopathy Results/Procedures Lab Patient resulted labs reviewed. Assessment/Plan Assessment and Plan Assess & Plan/Chief Complaint Assessment: s/p critical illness s/p sepsis Falls Confusion s/p ARF Severe anemia iron deficiency type receiving Venofer iron infusions COPD s/p VDRF Right proximal humerus fracture in sling HTN HLP Poor nutrition status h/o bladder cancer Incontinence with frequency prompting Urology consultation who completed cysto and it was normal but now requiring catheter placement but now DC and needs in/ out cath Dementia at baseline? Plan: Iron level 25 confirmed low so empirically treated already with IV iron infusions Pain control BM regimen Urology consultation is appreciated Monitor closely melvin lung function Monitor labs periodically May need NH if can't improve after [facility] evaluation and will be admitted on for hallucination treatment (1) Encephalopathy (2) History of sepsis (3) History of renal failure (4) Proximal humerus fracture (5) Abnormal albumin (6) History of bladder cancer (7) PTSD (post-traumatic stress disorder) (8) Hypertension (9) Skin cancer (10) UTI (urinary tract infection) (11) Wheezing (12) Incontinence of urine (13) Hyperlipemia (14) Confusion (15) Anemia (16) COPD (chronic obstructive pulmonary disease) (17) Hallucinations (18) Dementia Clinical Quality Measures DVT/VTE Risk/Contraindication: Risk Factor Score Per Nursin RFS Level Per Nursing on Admit: 4+=Very High HILLARY BROWN DO Apr 29, 2018 08:37
--- NOTE | 2018-04-29 09:08 | Physical Therapy Daily Note ---
PT Daily Note-Current Subjective Pt sitting in recliner upon arrival. Pt agrees to PT for FIM Scoring for possible DC tomorrow (04/30). Pain Location Body Site: Shoulder Pain Description: Ache Comment: Pt reports discomfort to Dr Pinto but does not rate. Mental Status Patient Orientation: Person, Confused, Place Attachments: Oxygen Pt request O2 a couple of times after fatiguing from tx., quick to recover though. Transfers Therapy Code Descriptions/Definitions Functional [place] Measure: 0=Not Assessed/NA 4=Minimal Assistance 1=Total Assistance 5=Supervision or Setup 2=Maximal Assistance 6=Modified [place] 3=Moderate Assistance 7=Complete [place] Therapy Quality Codes: 6 Independent with activity with or without an assistive device 5 Patient requires set up or clean up by helper. Patient completes activity by themselves 4 Supervision or touching assist (CGA). [place] provide cues , steadying assist 3 The helper provides less than half the effort to complete the activity 2 The helper provides more than half the effort to complete the activity 1 Dependent. The helper does all the effort to complete an activity 7 Patient refused to complete or attempt activity 9 The patient did not perform the activity before the current illness or injury 88 Not attempted due to Medical conditions or safety concerns Transfers (B, C, W/C) (FIM): 4 Scootin Rollin Roll Left to Right (QC): 4 Supine to/from Sit: 4 Sit to/from Stand: 4 Sit to Lying (QC): 4 Sit to Stand (QC): 4 Chair/Hls-wl-Zrqzz Xfer(QC): 4 Bed to/from Chair: 4 Car Transfer (QC): 4 Weight Bearing Right Lower Extremity: Right Full Weight Bearing Left Lower Extremity: Left Full Weight Bearing NWB right UE; pt presents in a sling. Gait Training Does the Patient Walk?: Yes Gait (FIM): 4 Distance (FIM): 3=150 ft Distance: 150' Walk 10 feet (QC): 4 Walk 50 ft with 2 Turns(QC): 4 Walk 150 ft (QC): 4 Walking 10ft/uneven surface-QC: 4 Gait Level of Assist: 4 Gait Persons Needed: 1 Gait Assistive Device: Handheld Assist Pt improves ambulation with DISPATCH OFFICER to fight pt's natural instinct of retropulsivity. Wheelchair Training Does the Pt Use a Wheelchair?: No Stair Training Stair Training: Handrails/: 1 handrail Stairs (FIM): 2 #of Steps: 4 1 Step (curb) (QC): 3 4 Steps (QC): 3 Stairs: Pattern: Step to Level of Assist: 3 Balance Picking up an Object (QC): 88 Special Test Comments Due to pt's lack of balance with transfers and ambulation, this item is not tested. Treatments After Nurse applies ointment to pt's backside, pt agrees to PT tx and then toilets. Pt completes bed mobility, transfers including car transfer, ambulation including across varying surface and 4 steps using single step in // bars. Pt returns to room at end of tx with all needs met. Assessment Pt has improved with transfers and ambulation while on ARU. Pt continues to struggle with confusion and retropulsivity. PT Short Term Goals Short Term Goals Time Frame: May 01, 2018 Gait (FIM): 4 Distance (FIM): 3=150 ft Gait Assistive Device: Cane Small Base Quad Wheelchair Distance: 150' PT Web Search Evaluator Goals Care Home Goals PT Web Search Evaluator Goals Time Frame: May 15, 2018 Transfers (B,C,W/C) (FIM): 6 Sit to Lying (QC): 6 Lying-Sitting on Side/Bed(QC): 6 Sit to Stand (QC): 6 Rollin Roll Left to Right (QC): 6 Chair/Fhg-ao-Ktzwd Xfer(QC): 6 Car Transfer (QC): 6 Does the Patient Walk: Yes Gait (FIM): 6 Gait distance (FIM): 3=150 ft Walk 10 feet (QC): 6 Walk 10ft-Uneven Surface(QC): 6 Walk 50ft with 2 Turns (QC): 6 Walk 150 ft (QC): 6 Gait Assistive Device: Cane Small Base Quad Does the Pt use WC or Scooter?: No Stairs (FIM): 5 # of Steps: 4 (household level) 1 Step (curb) (QC): 6 4 Steps (QC): 6 12 Steps (QC): 88 Stairs Level Of Assist: 6 Picking up an Object (QC): 5 PT Plan Problem List Problem List: Activity Tolerance, Functional Strength, Safety, Balance, Gait, Transfer, Bed Mobility Treatment/Plan Treatment Plan: Continue Plan of Care Treatment Plan: Bed Mobility, Education, Functional Activity Tania, Functional Strength, Group Therapy, Gait, Safety, Therapeutic Exercise, Transfers Treatment Duration: May 15, 2018 Frequency: At least 5 of 7 days/Wk (IRF) Estimated Hrs Per Day: 1.5 hours per day Patient and/or Family Agrees t: Yes Safety Risks/Education Patient Education: Gait Training, Transfer Techniques, Steps, Correct Positioning, Safety Issues Teaching Recipient: Patient Teaching Methods: Discussion Response to Teaching: Reinforcement Needed Time/GCodes Time In: 815 Time Out: 900 Total Billed Treatment Time: 45 Total Billed Treatment 1, GT (15m) & FA x2 (30m) G Codes Necessary: LLOYD Seo ELECTRON BEAM WELDING MACHINE OPERATOR Apr 29, 2018 09:08
--- NOTE | 2018-04-29 11:22 | Occupational Ther Daily Note ---
OT Current Status-Daily Note Subjective No pain reported. Appearance Pt. up in chair when OT comes into room. Pt. asleep but does wake up. Pt. somewhat confused this a.m. States that he has already showered this morning. Pt. still in same clothing as yesterday. Has not showered. Mental Status/Objective Patient Orientation: Confused Therapy Code Descriptions/Definitions Functional [place] Measure: 0=Not Assessed/NA 4=Minimal Assistance 1=Total Assistance 5=Supervision or Setup 2=Maximal Assistance 6=Modified [place] 3=Moderate Assistance 7=Complete [place] Attachments: IV ADL-Treatment Therapy Code Descriptions/Definitions Functional [place] Measure: 0=Not Assessed/NA 4=Minimal Assistance 1=Total Assistance 5=Supervision or Setup 2=Maximal Assistance 6=Modified [place] 3=Moderate Assistance 7=Complete [place] Therapy Quality Codes: 6 Independent with activity with or without an assistive device 5 Patient requires set up or clean up by helper. Patient completes activity by themselves 4 Supervision or touching assist (CGA). [place] provide cues , steadying assist 3 The helper provides less than half the effort to complete the activity 2 The helper provides more than half the effort to complete the activity 1 Dependent. The helper does all the effort to complete an activity 7 Patient refused to complete or attempt activity 9 The patient did not perform the activity before the current illness or injury 88 Not attempted due to Medical conditions or safety concerns Bathing (FIM): 2 (Pt. is given washcloth. Pt. asks what he is supposed to do with it. Pt. given cues to wash. Pt. "dabs" at chest, arm. Does not do thorough job. OT washes pt. ) Shower/Bathe Self (QC): 2 Upper Body (FIM): 1 (Pt given chance to doff/don shirt and sling. Pt. is not able to initiate either task. Will attempt to "grasp" at shirt, but can't seem to pick it up.) Upper Body Dressing (QC): 1 Lower Body Dressing (FIM): 1 (Pt. is given DS and is able to doff slip on shoes. However, holds onto stick and is unable to initiate his socks. OT doffs /dons slipper socks, SILAS hose, brief, and pants.) Lower Body Dressing (QC): 1 On/Off Footwear (QC): 2 Toileting (FIM): 2 (Once pt. is in shower, he states that he needs to have a BM. OT places BSC right up to shower. Transferred pt. to BSC. Pt. states that he didn't go, that he just "passed wind."However, once he stood, it was noted that he had a large BM and was unaware. Pt. unable to cleanse self and OT did this for him.) Toileting Hygiene (QC): 1 Transfers (B, C, W/C) (FIM): 4 Toilet/Commode Transfer (FIM): 4 Toilet Transfer (QC): 4 Shower Transfer(FIM): 4 Other Treatment Pt. doing a little better today with transfers. After ADLs in room, pt. attempted to self propel wheelchair to therapy gym. Pt. instructed multiple times to use bilateral legs and to use left arm. Pt. does this but very little , and OT pushes chair. Once in room, pt. given simple fine motor task. However , he isn't able to do it. States that his eyes don't work. Given large unit to work with, and pt. able to complete for shoulder movement, but requires constant cues to initiate or participate. Pt. tends to "freeze" or just stop what he is doing. Very flat affect noted. After this task, pt. taken back to room. Transferred to chair in room with min assist. All needs met. Education OT Patient Education: Correct positioning, Exercise program, Modified ADL techniques, Progress toward Goal/Update tx plan, Purpose of tx/functional activities, Reviewed precautions, Rehab process, Transfer techniques Teaching Recipient: Patient Teaching Methods: Demonstration, Discussion Response to Teaching: Verbalize Understanding, Return Demonstration OT Short Term Goals Short Term Goals Time Frame: Apr 24, 2018 Eating(FIM): 5 Grooming(FIM): 5 Bathing(FIM): 3 Upper Body Dressing(FIM): 3 Lower Body Dressing(FIM): 2 Toileting(FIM): 3 Toilet/Commode Transfer(FIM): 4 Shower Transfer(FIM): 3 Additional Short Term Goals: 1-Demonstrate ADL Tasks, 2-Verbalize Understanding , 3-ImproveStrength/Tania 1=Demonstrate adherence to instructed precautions during ADL tasks. 2=Patient will verbalize/demonstrate understanding of assistive devices/ modifications for ADL. 3=Patient will improve strength/tolerance for activity to enable patient to perform ADL's. OT [employer] Goals [employer] Goals Time Frame: May 08, 2018 Eating (FIM): 5 Eating (QC): 5 Groomin Oral Hygiene (QC): 5 Bathing(FIM): 4 Shower/Bathe Self (QC): 4 Upper Body Dressing(FIM): 5 Upper Body Dressing (QC): 5 Lower Body Dressing(FIM): 5 Lower Body Dressing (QC): 5 On/Off Footwear (QC): 5 Toileting(FIM): 5 Toileting Hygiene (QC): 5 Toilet/Commode Transfer(FIM): 5 Toilet/Commode Transfer (QC): 5 Shower Transfer(FIM): 5 Additional Goals: 1-Demonstrate ADL Tasks, 2-Verbalize Understanding, 3- ImproveStrength/Tania 1=Demonstrate adherence to instructed precautions during ADL tasks. 2=Patient will verbalize/demonstrate understanding of assistive devices/ modifications for ADL. 3=Patient will improve strength/tolerance for activity to enable patient to perform ADL's. OT Education/Plan Problem List/Assessment Assessment: Decreased Activ Tolerance, Decreased Safety Aware, Decreased UE Strength, Dependent Transfers, Edema, Impaired Bed Mobility, Impaired Cognition , Impaired Coordination, Impaired Funct Balance, Impaired I ADL's, Impaired Self -Care Skills, Restricted Funct UE ROM Pt to benefit from skilled OT intervention for ADL training, transfers, strengthening, and safety education to increase level of independence and allow safe discharge plan. Discharge Recommendations Plan/Recommendations: Continue POC Therapy D/C Recommendations: 24 hr Supervision, Retirement (TCU/NH) Treatment Plan/Plan of Care Treatment,Training & Education: Yes Patient would benefit from OT for education, treatment and training to promote independence in ADL's, mobility, safety and/or upper extremity function for ADL' s. Plan of Care: ADL Retraining, Functional Mobility, Group Exercise/Act as Ind, UE Funct Exercise/Act Treatment Duration: May 08, 2018 Frequency: At least 5 of 7 days/Wk (IRF) Estimated Hrs Per Day: 1.5 hours per day Agreement: Yes Rehab Potential: Fair Time/GCodes Start Time: 10:00 Stop Time: 11:00 Total Time Billed (hr/min): 60 Billed Treatment Time 1, ADL x 45minutes, FA x 15minutes SHAHANA GUZMAN OT Apr 29, 2018 11:22
[2018-04-29] MEDS: RT-ADVAIR HFA 115/21 MCG PER PUFF IH SCH (12:15)
[2018-04-29] MEDS ORDERED: BETH25TA PO (13:29)
[2018-04-29] MEDS ORDERED: PANT40TA3 PO (13:29)
[2018-04-29] MEDS ORDERED: NYST15CR TP (13:29)
[2018-04-29] MEDS ORDERED: MICO90PO TOP (13:29)
[2018-04-29] MEDS ORDERED: TAMS0.4C98 PO (13:29)
--- NOTE | 2018-04-29 13:32 | Discharge Summary ---
Diagnosis/Chief Complaint Date of Admission Apr 16, 2018 at 17:05 Date of Discharge Discharge Date: Apr 29, 2018 Discharge Diagnosis Assessment: s/p critical illness s/p sepsis Falls Confusion s/p ARF Severe anemia iron deficiency type receiving Venofer iron infusions COPD s/p VDRF Right proximal humerus fracture in sling HTN HLP Poor nutrition status h/o bladder cancer Incontinence with frequency prompting Urology consultation who completed cysto and it was normal but now requiring catheter placement but now DC and needs in/ out cath Dementia at baseline? Hallucinations Plan: Iron level 25 confirmed low so empirically treated already with IV iron infusions Pain control BM regimen Urology consultation is appreciated Monitor closely melvin lung function Monitor labs periodically May need NH if can't improve after [facility] evaluation and will be admitted on for hallucination treatment Discharge Summary Discharge Physical Examination Allergies: Coded Allergies: No Known Drug Allergies (Unverified , 10/06/09) Vitals & I&Os Vital Signs Date Time Temp Pulse Resp B/P (MAP) Pulse Ox O2 Delivery O2 Flow Rate FiO2 04/29/18 07:53 Room Air 04/29/18 06:00 97.8 91 18 136/76 (96) 93 04/26/18 17:57 2.00 Hospital Course Was the Problem List Reviewed?: Yes Hospital course: Pt had a standard hospital course in inpatient rehab after I accepted him from [facility] after a sepsis episode and UTI and completed Levaquin after respiratory failure and was intubated for one day. He does have a history of dementia undiagnosed prior to admission but became so confused and encephalopathic that he required inpatient rehab to manage ADLs and strengthen while his right humerus fracture healed. Urology was consulted for urinary retention then urinary incontinence and that was being managed actively by Dr. Quiñonez during his hospital course. Pt did receive IV iron for the iron deficiency anemia superimposed on chronic anemia of chronic illness. He did require nebulizer treatments on a scheduled basis due to the history of COPD and he continued to have wheezing and rouse throughout the hospital course without any evidence of respiratory compromise. Dr. Olsen was consulted. Overall he did well and he was noted to have hallucinations and significant cognitive decline so he was [facility] and was accepted there and was discharged there in stable condition. Will continue physical therapy and occupational therapy and continue treatment to ultimately return home as his family hopes but we will need to address hallucinations, and the cognition component prior to returning home, or to a facility. He did participate in all therapies but required multiple cues but did everything that was asked of him for criteria for the inpatient rehab unit. Labs (last 24 hrs) Laboratory Tests 04/17/18 05:35: White Blood Count 9.4, Red Blood Count 2.41L, Hemoglobin 7.7L, Hematocrit 25L, Mean Corpuscular Volume 102H, Mean Corpuscular Hemoglobin 32, Mean Corpuscular Hemoglobin Concent 31L, Red Cell Distribution Width 12.0, Platelet Count 322, Mean Platelet Volume 9.3, Neutrophils (%) (Auto) 60, Lymphocytes (%) (Auto) 20, Monocytes (%) (Auto) 18H, Eosinophils (%) (Auto) 2, Basophils (%) (Auto) 0, Neutrophils # (Auto) 5.6, Lymphocytes # (Auto) 1.8, Monocytes # (Auto) 1.7H, Eosinophils # (Auto) 0.2, Basophils # (Auto) 0.0, Sodium Level 138, Potassium Level 3.8, Chloride Level 100, Carbon Dioxide Level 27, Anion Gap 11, Blood Urea Nitrogen 14, Creatinine 0.79, Estimat Glomerular Filtration Rate > 60, BUN/ Creatinine Ratio 18, Glucose Level 90, Calcium Level 8.8, Corrected Calcium 9.8 , Total Bilirubin 0.4, Aspartate Amino Transf (AST/SGOT) 48H, Alanine Aminotransferase (ALT/SGPT) 32, Alkaline Phosphatase 63, Total Protein 6.3L, Albumin 2.7L, Smear Scan YES 04/17/18 18:15: Iron Level 25L 04/19/18 07:26: White Blood Count 8.5, Red Blood Count 2.43L, Hemoglobin 7.9L, Hematocrit 25L, Mean Corpuscular Volume 103H, Mean Corpuscular Hemoglobin 33, Mean Corpuscular Hemoglobin Concent 32, Red Cell Distribution Width 12.2, Platelet Count 345, Mean Platelet Volume 9.3, Neutrophils (%) (Auto) 62, Lymphocytes (%) (Auto) 21, Monocytes (%) (Auto) 15H, Eosinophils (%) (Auto) 2, Basophils (%) (Auto) 1, Neutrophils # (Auto) 5.2, Lymphocytes # (Auto) 1.8, Monocytes # (Auto) 1.2H, Eosinophils # (Auto) 0.2, Basophils # (Auto) 0.0, Sodium Level 138, Potassium Level 3.9, Chloride Level 102, Carbon Dioxide Level 26, Anion Gap 10, Blood Urea Nitrogen 15, Creatinine 0.87, Estimat Glomerular Filtration Rate > 60, BUN/ Creatinine Ratio 17, Glucose Level 97, Calcium Level 9.4, Corrected Calcium 10.3H, Total Bilirubin 0.4, Aspartate Amino Transf (AST/SGOT) 27, Alanine Aminotransferase (ALT/SGPT) 28, Alkaline Phosphatase 77, Total Protein 6.4, Albumin 2.9L 04/22/18 20:00: Sodium Level 140, Potassium Level 4.6, Chloride Level 102, Carbon Dioxide Level 28, Anion Gap 10, Blood Urea Nitrogen 20H, Creatinine 1.56H, Estimat Glomerular Filtration Rate 43, BUN/Creatinine Ratio 13, Glucose Level 103, Calcium Level 9.5 04/23/18 06:20: White Blood Count 9.7, Red Blood Count 2.13L, Hemoglobin 6.7*L, Hematocrit 22L, Mean Corpuscular Volume 102H, Mean Corpuscular Hemoglobin 31, Mean Corpuscular Hemoglobin Concent 31L, Red Cell Distribution Width 12.4, Platelet Count 351, Mean Platelet Volume 9.2, Sodium Level 141, Potassium Level 4.3, Chloride Level 104, Carbon Dioxide Level 28, Anion Gap 9, Blood Urea Nitrogen 20H, Creatinine 1.32H, Estimat Glomerular Filtration Rate 52, BUN/Creatinine Ratio 15, Glucose Level 90, Calcium Level 9.4, Corrected Calcium 10.4H, Total Bilirubin 0.4, Aspartate Amino Transf (AST/SGOT) 12, Alanine Aminotransferase (ALT/SGPT) 13, Alkaline Phosphatase 68, Total Protein 6.0L, Albumin 2.8L 04/23/18 12:00: B-Type Natriuretic Peptide 57.1 04/23/18 12:52: Blood Gas Puncture Site LRAD, Blood Gas Patient Temperature 98.1, Arterial Blood pH 7.45H, Arterial Blood Partial Pressure CO2 43, Arterial Blood Partial Pressure O2 72L, Arterial Blood HCO3 29H, Arterial Blood Total CO2 30.5, Arterial Blood Oxygen Saturation 96, Arterial Blood Base Excess 5.1H, Slim Test YES-POS, Blood Gas Ventilator Setting NO, Blood Gas Inspired Oxygen 2 04/23/18 18:20: Red Blood Count 2.28L, Sodium Level 139, Potassium Level 4.5, Chloride Level 102 , Carbon Dioxide Level 27, Anion Gap 10, Blood Urea Nitrogen 23H, Creatinine 1.42H, Estimat Glomerular Filtration Rate 48, BUN/Creatinine Ratio 16, Glucose Level 98, Calcium Level 9.3, Corrected Calcium 10.0, Total Bilirubin 0.4, Aspartate Amino Transf (AST/SGOT) 13, Alanine Aminotransferase (ALT/SGPT) 13, Alkaline Phosphatase 80, Total Protein 6.4, Albumin 3.1L, Absolute Reticulocyte Count 26, Percent Reticulocyte Count 1.16, Methylmalonic Acid 0.19, Homocysteine 14.4 04/24/18 06:35: White Blood Count 8.4, Red Blood Count 2.51L, Hemoglobin 7.9L, Hematocrit 26L, Mean Corpuscular Volume 102H, Mean Corpuscular Hemoglobin 32, Mean Corpuscular Hemoglobin Concent 31L, Red Cell Distribution Width 12.5, Platelet Count 359, Mean Platelet Volume 9.4, Neutrophils (%) (Auto) 63, Lymphocytes (%) (Auto) 20, Monocytes (%) (Auto) 14H, Eosinophils (%) (Auto) 2, Basophils (%) (Auto) 1, Neutrophils # (Auto) 5.3, Lymphocytes # (Auto) 1.7, Monocytes # (Auto) 1.2H, Eosinophils # (Auto) 0.2, Basophils # (Auto) 0.1, Neutrophils % (Manual) 61, Lymphocytes % (Manual) 21, Monocytes % (Manual) 15, Eosinophils % (Manual) 3, Basophils % (Manual) 0, Band Neutrophils 0, Blood Morphology Comment NORMAL, Sodium Level 138, Potassium Level 4.1, Chloride Level 103, Carbon Dioxide Level 25, Anion Gap 10, Blood Urea Nitrogen 21H, Creatinine 1.23, Estimat Glomerular Filtration Rate 57, BUN/Creatinine Ratio 17, Glucose Level 82, Calcium Level 9.6 , Corrected Calcium 10.2H, Total Bilirubin 0.5, Aspartate Amino Transf (AST/SGOT ) 15, Alanine Aminotransferase (ALT/SGPT) 14, Alkaline Phosphatase 74, Lactate Dehydrogenase 159, Total Protein 6.7, Albumin 3.2 04/27/18 06:30: White Blood Count 7.1, Red Blood Count 2.28L, Hemoglobin 7.3L, Hematocrit 23L, Mean Corpuscular Volume 102H, Mean Corpuscular Hemoglobin 32, Mean Corpuscular Hemoglobin Concent 31L, Red Cell Distribution Width 12.3, Platelet Count 371, Mean Platelet Volume 9.7, Neutrophils (%) (Auto) 55, Lymphocytes (%) (Auto) 27, Monocytes (%) (Auto) 15H, Eosinophils (%) (Auto) 2, Basophils (%) (Auto) 1, Neutrophils # (Auto) 3.9, Lymphocytes # (Auto) 1.9, Monocytes # (Auto) 1.1H, Eosinophils # (Auto) 0.2, Basophils # (Auto) 0.1, Sodium Level 139, Potassium Level 3.9, Chloride Level 103, Carbon Dioxide Level 28, Anion Gap 8, Blood Urea Nitrogen 10, Creatinine 0.84, Estimat Glomerular Filtration Rate > 60, BUN/ Creatinine Ratio 12, Glucose Level 86, Calcium Level 9.3, Corrected Calcium 10.2H, Total Bilirubin 0.4, Aspartate Amino Transf (AST/SGOT) 12, Alanine Aminotransferase (ALT/SGPT) 10, Alkaline Phosphatase 75, Total Protein 6.4, Albumin 2.9L Pending Labs Laboratory Tests 04/17/18 05:35: White Blood Count 9.4, Red Blood Count 2.41, Hemoglobin 7.7, Hematocrit 25, Mean Corpuscular Volume 102, Mean Corpuscular Hemoglobin 32, Mean Corpuscular Hemoglobin Concent 31, Red Cell Distribution Width 12.0, Platelet Count 322, Mean Platelet Volume 9.3, Neutrophils (%) (Auto) 60, Lymphocytes (%) (Auto) 20, Monocytes (%) (Auto) 18, Eosinophils (%) (Auto) 2, Basophils (%) (Auto) 0, Neutrophils # (Auto) 5.6, Lymphocytes # (Auto) 1.8, Monocytes # (Auto) 1.7, Eosinophils # (Auto) 0.2, Basophils # (Auto) 0.0, Sodium Level 138, Potassium Level 3.8, Chloride Level 100, Carbon Dioxide Level 27, Anion Gap 11, Blood Urea Nitrogen 14, Creatinine 0.79, Estimat Glomerular Filtration Rate > 60, BUN/ Creatinine Ratio 18, Glucose Level 90, Calcium Level 8.8, Corrected Calcium 9.8 , Total Bilirubin 0.4, Aspartate Amino Transf (AST/SGOT) 48, Alanine Aminotransferase (ALT/SGPT) 32, Alkaline Phosphatase 63, Total Protein 6.3, Albumin 2.7, Smear Scan YES 04/17/18 18:15: Iron Level 25 04/19/18 07:26: White Blood Count 8.5, Red Blood Count 2.43, Hemoglobin 7.9, Hematocrit 25, Mean Corpuscular Volume 103, Mean Corpuscular Hemoglobin 33, Mean Corpuscular Hemoglobin Concent 32, Red Cell Distribution Width 12.2, Platelet Count 345, Mean Platelet Volume 9.3, Neutrophils (%) (Auto) 62, Lymphocytes (%) (Auto) 21, Monocytes (%) (Auto) 15, Eosinophils (%) (Auto) 2, Basophils (%) (Auto) 1, Neutrophils # (Auto) 5.2, Lymphocytes # (Auto) 1.8, Monocytes # (Auto) 1.2, Eosinophils # (Auto) 0.2, Basophils # (Auto) 0.0, Sodium Level 138, Potassium Level 3.9, Chloride Level 102, Carbon Dioxide Level 26, Anion Gap 10, Blood Urea Nitrogen 15, Creatinine 0.87, Estimat Glomerular Filtration Rate > 60, BUN/ Creatinine Ratio 17, Glucose Level 97, Calcium Level 9.4, Corrected Calcium 10.3 , Total Bilirubin 0.4, Aspartate Amino Transf (AST/SGOT) 27, Alanine Aminotransferase (ALT/SGPT) 28, Alkaline Phosphatase 77, Total Protein 6.4, Albumin 2.9 04/22/18 20:00: Sodium Level 140, Potassium Level 4.6, Chloride Level 102, Carbon Dioxide Level 28, Anion Gap 10, Blood Urea Nitrogen 20, Creatinine 1.56, Estimat Glomerular Filtration Rate 43, BUN/Creatinine Ratio 13, Glucose Level 103, Calcium Level 9.5 04/23/18 06:20: White Blood Count 9.7, Red Blood Count 2.13, Hemoglobin 6.7, Hematocrit 22, Mean Corpuscular Volume 102, Mean Corpuscular Hemoglobin 31, Mean Corpuscular Hemoglobin Concent 31, Red Cell Distribution Width 12.4, Platelet Count 351, Mean Platelet Volume 9.2, Sodium Level 141, Potassium Level 4.3, Chloride Level 104, Carbon Dioxide Level 28, Anion Gap 9, Blood Urea Nitrogen 20, Creatinine 1.32, Estimat Glomerular Filtration Rate 52, BUN/Creatinine Ratio 15, Glucose Level 90, Calcium Level 9.4, Corrected Calcium 10.4, Total Bilirubin 0.4, Aspartate Amino Transf (AST/SGOT) 12, Alanine Aminotransferase (ALT/SGPT) 13, Alkaline Phosphatase 68, Total Protein 6.0, Albumin 2.8 04/23/18 12:00: B-Type Natriuretic Peptide 57.1 04/23/18 12:52: Blood Gas Puncture Site LRAD, Blood Gas Patient Temperature 98.1, Arterial Blood pH 7.45, Arterial Blood Partial Pressure CO2 43, Arterial Blood Partial Pressure O2 72, Arterial Blood HCO3 29, Arterial Blood Total CO2 30.5, Arterial Blood Oxygen Saturation 96, Arterial Blood Base Excess 5.1, Slim Test YES-POS, Blood Gas Ventilator Setting NO, Blood Gas Inspired Oxygen 2 04/23/18 18:20: Red Blood Count 2.28, Sodium Level 139, Potassium Level 4.5, Chloride Level 102 , Carbon Dioxide Level 27, Anion Gap 10, Blood Urea Nitrogen 23, Creatinine 1.42 , Estimat Glomerular Filtration Rate 48, BUN/Creatinine Ratio 16, Glucose Level 98, Calcium Level 9.3, Corrected Calcium 10.0, Total Bilirubin 0.4, Aspartate Amino Transf (AST/SGOT) 13, Alanine Aminotransferase (ALT/SGPT) 13, Alkaline Phosphatase 80, Total Protein 6.4, Albumin 3.1, Absolute Reticulocyte Count 26, Percent Reticulocyte Count 1.16, Methylmalonic Acid 0.19, Homocysteine 14.4 04/24/18 06:35: White Blood Count 8.4, Red Blood Count 2.51, Hemoglobin 7.9, Hematocrit 26, Mean Corpuscular Volume 102, Mean Corpuscular Hemoglobin 32, Mean Corpuscular Hemoglobin Concent 31, Red Cell Distribution Width 12.5, Platelet Count 359, Mean Platelet Volume 9.4, Neutrophils (%) (Auto) 63, Lymphocytes (%) (Auto) 20, Monocytes (%) (Auto) 14, Eosinophils (%) (Auto) 2, Basophils (%) (Auto) 1, Neutrophils # (Auto) 5.3, Lymphocytes # (Auto) 1.7, Monocytes # (Auto) 1.2, Eosinophils # (Auto) 0.2, Basophils # (Auto) 0.1, Neutrophils % (Manual) 61, Lymphocytes % (Manual) 21, Monocytes % (Manual) 15, Eosinophils % (Manual) 3, Basophils % (Manual) 0, Band Neutrophils 0, Blood Morphology Comment NORMAL, Sodium Level 138, Potassium Level 4.1, Chloride Level 103, Carbon Dioxide Level 25, Anion Gap 10, Blood Urea Nitrogen 21, Creatinine 1.23, Estimat Glomerular Filtration Rate 57, BUN/Creatinine Ratio 17, Glucose Level 82, Calcium Level 9.6 , Corrected Calcium 10.2, Total Bilirubin 0.5, Aspartate Amino Transf (AST/SGOT ) 15, Alanine Aminotransferase (ALT/SGPT) 14, Alkaline Phosphatase 74, Lactate Dehydrogenase 159, Total Protein 6.7, Albumin 3.2 04/27/18 06:30: White Blood Count 7.1, Red Blood Count 2.28, Hemoglobin 7.3, Hematocrit 23, Mean Corpuscular Volume 102, Mean Corpuscular Hemoglobin 32, Mean Corpuscular Hemoglobin Concent 31, Red Cell Distribution Width 12.3, Platelet Count 371, Mean Platelet Volume 9.7, Neutrophils (%) (Auto) 55, Lymphocytes (%) (Auto) 27, Monocytes (%) (Auto) 15, Eosinophils (%) (Auto) 2, Basophils (%) (Auto) 1, Neutrophils # (Auto) 3.9, Lymphocytes # (Auto) 1.9, Monocytes # (Auto) 1.1, Eosinophils # (Auto) 0.2, Basophils # (Auto) 0.1, Sodium Level 139, Potassium Level 3.9, Chloride Level 103, Carbon Dioxide Level 28, Anion Gap 8, Blood Urea Nitrogen 10, Creatinine 0.84, Estimat Glomerular Filtration Rate > 60, BUN/ Creatinine Ratio 12, Glucose Level 86, Calcium Level 9.3, Corrected Calcium 10.2 , Total Bilirubin 0.4, Aspartate Amino Transf (AST/SGOT) 12, Alanine Aminotransferase (ALT/SGPT) 10, Alkaline Phosphatase 75, Total Protein 6.4, Albumin 2.9 Discharge Home Medications: Active Scripts Active Nystatin 15 Gm Cream..g. 0 Gm TP BID 7 Days Lotrimin AF (Miconazole Nitrate) 90 Gm Powder 0 Gm TOP BID 7 Days Pantoprazole Sodium 40 Mg Tablet.dr 40 Mg PO BID@0700,2100 60 Days Flomax (Tamsulosin HCl) 0.4 Mg Cap 0.4 Mg PO DAILY@1800 60 Days Bethanechol Chloride 25 Mg Tablet 25 Mg PO ACHS 60 Days Reported Ammonium Lactate 226 Gm Lotion TP BID PRN Iprat-Albut 0.5-3(2.5) mg/3 ml (Ipratropium/Albuterol Sulfate) 3 Ml Ampul.neb 3 Ml IH Q6H PRN Hydrocodone-Acetamin 5-325 mg (Hydrocodone/Acetaminophen) 1 Each Tablet 1 Tab PO Q4H PRN Combivent Respimat Inhal [place] (Albuterol/Ipratropium) 4 Gm Aero 1 Puff IH BID Lisinopril 10 Mg Tablet 5 Mg PO DAILY TAKES 1/2 (10MG) TABLET Cetirizine HCl 10 Mg Tablet 10 Mg PO DAILY Amlodipine Besylate 10 Mg Tablet 10 Mg PO DAILY Montelukast Sodium 10 Mg Tablet 10 Mg PO HS Symbicort 160-4.5 Mcg Inhaler (Budesonide/Formoterol Fumarate) 10.2 Gm Hfa.aer.ad 2 Puff IH BID Instructions to patient/family Please see electronic discharge instructions given to patient. Diagnosis/Problems Diagnosis/Problems (1) Encephalopathy Status: Acute (2) History of sepsis Status: Resolved (3) History of renal failure Status: Resolved (4) Proximal humerus fracture Status: Acute Qualifiers: Qualified Codes: S42.294D - Other nondisplaced fracture of upper end of right humerus, subsequent encounter for fracture with routine healing (5) Abnormal albumin Status: Acute (6) History of bladder cancer Status: Chronic (7) PTSD (post-traumatic stress disorder) Status: Chronic (8) Hypertension Status: Chronic Qualifiers: Qualified Codes: I10 - Essential (primary) hypertension (9) Skin cancer Status: Chronic (10) UTI (urinary tract infection) Status: Acute Qualifiers: Qualified Codes: N30.01 - Acute cystitis with hematuria (11) Wheezing Status: Acute (12) Incontinence of urine Status: Acute Qualifiers: Qualified Codes: R32 - Unspecified urinary incontinence (13) Hyperlipemia Status: Chronic Qualifiers: Qualified Codes: E78.2 - Mixed hyperlipidemia (14) Confusion Status: Acute (15) Anemia Status: Chronic Qualifiers: Qualified Codes: D50.9 - Iron deficiency anemia, unspecified (16) COPD (chronic obstructive pulmonary disease) Status: Chronic Qualifiers: Qualified Codes: J44.9 - Chronic obstructive pulmonary disease, unspecified (17) Hallucinations Status: Acute (18) Dementia Status: Chronic Qualifiers: Qualified Codes: G30.9 - Alzheimer's disease, unspecified; F02.81 - Dementia in other diseases classified elsewhere with behavioral disturbance Clinical Quality Measures DVT/VTE Risk/Contraindication: Risk Factor Score Per Nursin RFS Level Per Nursing on Admit: 4+=Very High HILLARY BROWN DO Apr 29, 2018 13:32
--- NOTE | 2018-04-29 13:59 | Speech Therapy Daily Note ---
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 He had just finished his lunch when I arrived. Objective Patient completed simple conversational tasks with moderate repetitions. Assessment Assessment Current Status: Fair Progress Treatment Plan Discontinue ST Communication Comprehension: 5 Expression: 5 Social Cognition Social Interaction: 6 Problem Solvin Memory: 4 Speech Short Term Goals Short Term Goals Short Term Goals 1) Patient will complete memory tasks with 80% or greater with minimal cues. 2) Patient will complete problem solving tasks with 80% or greater with minimal cues. 3) Patient will follow directions for increased safety to meet his personal daily needs at 80% or greater with minimal cues. Speech Fci Goals Fci Goals Patient will improve his overall level of safety and independence to return to his prior level of functioning. Speech-Plan Patient/Family Goals Patient/Family Goals: Patient is being discharged to [facility] this date. Treatment Plan Speech Therapy Treatment Plan: Discontinue ST Patient is being discharged this afternoon. Treatment Duration: Apr 30, 2018 Frequency: 5 times per week Estimated Hrs Per Day: .25 hour per day Rehab Potential: Fair Barriers to Learning: Moderate dementia. Pt/Family Agrees to Plan: Yes Safety Risks/Education Teaching Recipient: Patient Teaching Methods: Discussion Response to Teaching: Verbalize Understanding Education Topics Provided: Safety Time Speech Therapy Time In: 12:50 Speech Therapy Time Out: 13:00 Total Billed Time: 10 Billed Treatment Time 1GUSTAVO B[address] ST Apr 29, 2018 13:59
--- NOTE | 2018-04-29 14:04 | Therapy Team Discharge Summary ---
Therapy Discharge Summary Discharge Recommendations Date of Discharge Therapy D/C Recommendations: 24 hr Supervision, Custodial (TCU/NH) Occupational Therapy Decreased Activ Tolerance, Decreased UE Strength, Dependent Transfers, Impaired Bed Mobility, Impaired Cognition, Impaired Coordination, Impaired Funct Balance , Impaired I ADL's, Impaired Self-Care Skills, Restricted Funct UE ROM Speech-Language Pathology Patient was admitted to this ARU following a fall so that he could become stronger and more independent. Due to his level of dementia he has made minimal progress. He is being discharged to [facility] this afternoon for more appropriate treatment. Patient is being discharged from skilled at this time. PT Skills Trainer Goals Skills Trainer Goals PT Skills Trainer Goals Time Frame: May 15, 2018 Transfers (B,C,W/C) (FIM): 6 Roll Left to Right (QC): 6 Sit to Lying (QC): 6 Lying-Sitting on Side/Bed(QC): 6 Sit to Stand (QC): 6 Chair/[id number] Xfer(QC): 6 Car Transfer (QC): 6 Does the Patient Walk: Yes Gait (FIM): 6 Gait distance (FIM): 3=150 ft Walk 10 feet (QC): 6 Walk 10ft-Uneven Surface(QC): 6 Walk 50ft with 2 Turns (QC): 6 Walk 150 ft (QC): 6 Gait Assistive Device: Cane Small Base Quad Does the Pt use WC or Scooter?: No Stairs (FIM): 5 # of Steps: 4 (household level) 1 Step (curb) (QC): 6 4 Steps (QC): 6 12 Steps (QC): 88 Stairs Level Of Assist: 6 Picking up an Object (QC): 5 OT Half-Way Goals Half-Way Goals Time Frame: May 08, 2018 Eating (FIM): 5 Eating (QC): 5 Oral Hygiene (QC): 5 Grooming(FIM): 5 Bathing(FIM): 4 Shower/Bathe Self (QC): 4 Upper Body Dressing(FIM): 5 Upper Body Dressing (QC): 5 Lower Body Dressing(FIM): 5 Lower Body Dressing (QC): 5 On/Off Footwear (QC): 5 Toileting(FIM): 5 Toileting Hygiene (QC): 5 Toilet/Commode Transfer(FIM): 5 Toilet/Commode Transfer (QC): 5 Shower Transfer(FIM): 5 Additional Goals: 1-Demonstrate ADL Tasks, 2-Verbalize Understanding, 3- ImproveStrength/Tania 1=Demonstrate adherence to instructed precautions during ADL tasks. 2=Patient will verbalize/demonstrate understanding of assistive devices/ modifications for ADL. 3=Patient will improve strength/tolerance for activity to enable patient to perform ADL's. Speech Skills Trainer Goals Half-Way Goals Patient will improve his overall level of safety and independence to return to his prior level of functioning. Met at 60% ISATU RAMACHANDRAN Apr 29, 2018 14:04
--- NOTE | 2018-04-29 14:17 | Therapy Team Discharge Summary ---
Therapy Discharge Summary Discharge Recommendations Date of Discharge 04-29-18 Therapy D/C Recommendations: 24 hr Supervision, Intermediate (TCU/NH) Occupational Therapy Pt. has been seen by occupational therapy to increase overall strength and independence. Pt. requires max/dependent assistance to complete ADL skills. Pt. is discharging to [facility] in [place] for 24 hour assistance, and assessment of confusion/hallucinations. Recommend continued OT care for skill acquisition. Decreased Activ Tolerance, Decreased UE Strength, Dependent Transfers, Impaired Bed Mobility, Impaired Cognition, Impaired Coordination, Impaired Funct Balance , Impaired I ADL's, Impaired Self-Care Skills, Restricted Funct UE ROM PT Retirement Goals Commercial Glazier Goals PT Retirement Goals Time Frame: May 15, 2018 Transfers (B,C,W/C) (FIM): 6 Roll Left to Right (QC): 6 Sit to Lying (QC): 6 Lying-Sitting on Side/Bed(QC): 6 Sit to Stand (QC): 6 Chair/Iwx-ro-Qexne Xfer(QC): 6 Car Transfer (QC): 6 Does the Patient Walk: Yes Gait (FIM): 6 Gait distance (FIM): 3=150 ft Walk 10 feet (QC): 6 Walk 10ft-Uneven Surface(QC): 6 Walk 50ft with 2 Turns (QC): 6 Walk 150 ft (QC): 6 Gait Assistive Device: Cane Small Base Quad Does the Pt use WC or Scooter?: No Stairs (FIM): 5 # of Steps: 4 (household level) 1 Step (curb) (QC): 6 4 Steps (QC): 6 12 Steps (QC): 88 Stairs Level Of Assist: 6 Picking up an Object (QC): 5 OT Commercial Glazier Goals Commercial Glazier Goals Time Frame: May 08, 2018 Eating (FIM): 5 (met) Eating (QC): 5 (met) Oral Hygiene (QC): 5 (not met) Grooming(FIM): 5 (not met) Bathing(FIM): 4 (not met) Shower/Bathe Self (QC): 4 (not met) Upper Body Dressing(FIM): 5 (not met) Upper Body Dressing (QC): 5 (not met) Lower Body Dressing(FIM): 5 (not met) Lower Body Dressing (QC): 5 (not met) On/Off Footwear (QC): 5 (not met) Toileting(FIM): 5 (not met) Toileting Hygiene (QC): 5 (not met) Toilet/Commode Transfer(FIM): 5 (not met) Toilet/Commode Transfer (QC): 5 (not met) Shower Transfer(FIM): 5 (not met) Additional Goals: 1-Demonstrate ADL Tasks, 2-Verbalize Understanding, 3- ImproveStrength/Tania 1=Demonstrate adherence to instructed precautions during ADL tasks. 2=Patient will verbalize/demonstrate understanding of assistive devices/ modifications for ADL. 3=Patient will improve strength/tolerance for activity to enable patient to perform ADL's. Speech Retirement Goals Retirement Goals Patient will improve his overall level of safety and independence to return to his prior level of functioning. Met at 60% SHAHANA GUZMAN OT Apr 29, 2018 14:17
--- NOTE | 2018-04-29 14:53 | Therapy Team Discharge Summary ---
Therapy Discharge Summary Discharge Recommendations Date of Discharge 04/29/2018 Therapy D/C Recommendations: 24 hr Supervision, Half-Way (TCU/NH) ( Physical therapy) Physical Therapy This patient admitted to ARU post acute hospital stay with dx of acute metabolic encephalopathy. Prior to his acute hospital stay, he was indep with all mobility. Upon admission to this unit, he was max assist with transfers and bed mobility and was only able to ambulate 10 ft with mod assist using a QC. He was retropulsive with standing and demonstrated confusion with decreased safety awareness and problem solving skills. Treatment focused on functional strength and balance to improve bed mobility, transfers and gait. he did make progress but did not fully achieve his goals. At OR, he was min assist with transfers and walked 150 ft with [facility] with min assist. He continues to have confusion and decreased safety awareness. Pt to discharge from this unit to [facility] [place]. DC PT. Occupational Therapy Decreased Activ Tolerance, Decreased UE Strength, Dependent Transfers, Impaired Bed Mobility, Impaired Cognition, Impaired Coordination, Impaired Funct Balance , Impaired I ADL's, Impaired Self-Care Skills, Restricted Funct UE ROM PT Tool Clerk Goals Tool Clerk Goals PT Tool Clerk Goals Time Frame: May 15, 2018 Transfers (B,C,W/C) (FIM): 6 Roll Left to Right (QC): 6 Sit to Lying (QC): 6 Lying-Sitting on Side/Bed(QC): 6 Sit to Stand (QC): 6 Chair/Ryf-er-Fcmkc Xfer(QC): 6 Car Transfer (QC): 6 Does the Patient Walk: Yes Gait (FIM): 6 Gait distance (FIM): 3=150 ft Walk 10 feet (QC): 6 Walk 10ft-Uneven Surface(QC): 6 Walk 50ft with 2 Turns (QC): 6 Walk 150 ft (QC): 6 Gait Assistive Device: Cane Small Base Quad Does the Pt use WC or Scooter?: No Stairs (FIM): 5 # of Steps: 4 (household level) 1 Step (curb) (QC): 6 4 Steps (QC): 6 12 Steps (QC): 88 Stairs Level Of Assist: 6 Picking up an Object (QC): 5 Goals remain unmet; generally, pt is min assist with transfers and gait. OT Senior Living Goals Tool Clerk Goals Time Frame: May 08, 2018 Eating (FIM): 5 (met) Eating (QC): 5 (met) Oral Hygiene (QC): 5 (not met) Grooming(FIM): 5 (not met) Bathing(FIM): 4 (not met) Shower/Bathe Self (QC): 4 (not met) Upper Body Dressing(FIM): 5 (not met) Upper Body Dressing (QC): 5 (not met) Lower Body Dressing(FIM): 5 (not met) Lower Body Dressing (QC): 5 (not met) On/Off Footwear (QC): 5 (not met) Toileting(FIM): 5 (not met) Toileting Hygiene (QC): 5 (not met) Toilet/Commode Transfer(FIM): 5 (not met) Toilet/Commode Transfer (QC): 5 (not met) Shower Transfer(FIM): 5 (not met) Additional Goals: 1-Demonstrate ADL Tasks, 2-Verbalize Understanding, 3- ImproveStrength/Tania 1=Demonstrate adherence to instructed precautions during ADL tasks. 2=Patient will verbalize/demonstrate understanding of assistive devices/ modifications for ADL. 3=Patient will improve strength/tolerance for activity to enable patient to perform ADL's. Speech Tool Clerk Goals Tool Clerk Goals Patient will improve his overall level of safety and independence to return to his prior level of functioning. Met at 60% NADIA MARTINEZ PT Apr 29, 2018 14:53
--- NOTE | 2018-04-29 15:06 | NUR ---
REPORT TO MARY DESAI AT [facility]. REPORTED PATIENT'S IV, HGB 7.3 AND VENEFIR Q48H. PATIENT ALSO HAS EXP RHONCHI AND NEEDS MUCH CUING ON I.S. VITAL SIGNS AT THIS TIME 140/76, HR 98,, 02 SATURATION 94%, RR 16. DENIES PAIN. PATIENT IN ACTIVITY AREA AT DESK AT THIS TIME DUE TO CONSTANT PATIENT ATTEMPT FOR SAFETY.
--- NOTE | 2018-04-29 15:31 | Pulmonary Progress Note ---
Subjective Time Seen by a Provider: 06:00 Subjective/Events-last exam Sitting in chair. No complications or complaints. Sepsis Event Evaluation Height, Weight, BMI Height: 5'8.00" Weight: 163lbs. 6.4oz. 73.460951lk; 31.9 BMI Method: Exam Exam Vital Signs Date Time Temp Pulse Resp B/P (MAP) Pulse Ox O2 Delivery O2 Flow Rate FiO2 04/29/18 07:53 Room Air 04/29/18 06:00 97.8 91 18 136/76 (96) 93 Room Air 04/28/18 20:50 Room Air 04/28/18 20:30 93 Room Air 04/28/18 15:39 97.4 86 14 120/80 (93) 93 Room Air I & O 04/29/18 07:00 Intake Total 650 ml Output Total 550 ml Balance 100 ml Height & Weight Height: 5'8.00" Weight: 163lbs. 6.4oz. 73.314143qf; 31.9 BMI Method: General Appearance: No Apparent Distress, WD/WN, Chronically ill, Obese Neck: Full Range of Motion, Normal Inspection, Non Tender, Supple Respiratory: Chest Non Tender, Lungs Clear, Normal Breath Sounds, No Accessory Muscle Use, No Respiratory Distress, Wheezing Cardiovascular: Regular Rate, Rhythm, No Edema, No Gallop, No JVD, No Murmur, Normal Peripheral Pulses Extremity: Normal Capillary Refill, Normal Inspection, Normal Range of Motion ( except right arm), Non Tender, No Calf Tenderness, Other (weakness in all extremities) Neurologic/Psychiatric: Alert, Oriented x3, No Motor/Sensory Deficits, communications strategist II- XII Norm as Tested, Depressed Affect, Disoriented, Other (generalized motor weakness) Skin: Normal Color, Warm/Dry Lymphatic: No Adenopathy Assessment/Plan Assessment/Plan Severe COPD -Oxygen -SVNs add adviar S/p acute respiratory failure requiring ventilator Deconditioning -In patient rehab Confusion Severe anemia with iron deficiency Right proximal humerus fracture in sling h/o bladder cancer Dementia HARJIT FRIEDMAN DO Apr 29, 2018 15:31
--- NOTE | 2018-04-29 16:11 | NUR ---
KARUNA SAMUELS demonstrates understanding of discharge instructions and accurately returns instructions upon questioning. Copy of Post-Discharge Instructions given to PATIENT . KARUNA SAMUELS is not able to manage continuing needs after discharge. Patients belongings returned to . Patient discharged from [facility] on 04/29 at 1545. KARUNA SAMUELS left floor via WC, accompanied by [employer].
--- NOTE | 2018-04-29 16:20 | NUR ---
TRUANT OFFICER received notification from Blade at [facility] regarding bed availability for today at 3 p.m. Patient was originally scheduled for discharge tomorrow; however, due to open availability team will proceed with discharge today. TRUANT OFFICER has arranged [employer] wheelchair van transport at 330p. TRUANT OFFICER reviewed this with patient's , who remains agreeable. Please see discharge summary for further information.
== END 2018-04-29 15:45 | DRG 91 ==
PROVIDERS: ADMIT Internal Medicine; ATTEND Internal Medicine
PROC: 0TJB8ZZ Inspection of Bladder, Via Natural or Artificial Opening Endoscopic (ICD-10-PCS; principal; 2018-04-21 08:10)
DX: G72.81 Critical illness myopathy (principal); G93.41 Metabolic encephalopathy; N39.0 Urinary tract infection, site not specified; N40.1 Benign prostatic hyperplasia with lower urinary tract symptoms; R35.0 Frequency of micturition; R32 Unspecified urinary incontinence; R33.9 Retention of urine, unspecified; D61.9 Aplastic anemia, unspecified; F02.81 Dementia in other diseases classified elsewhere, unspecified severity, with behavioral disturbance; G30.9 Alzheimer's disease, unspecified; S42.294D Other nondisplaced fracture of upper end of right humerus, subsequent encounter for fracture with routine healing; J44.9 Chronic obstructive pulmonary disease, unspecified; I12.9 Hypertensive chronic kidney disease with stage 1 through stage 4 chronic kidney disease, or unspecified chronic kidney disease; N18.2 Chronic kidney disease, stage 2 (mild); D63.8 Anemia in other chronic diseases classified elsewhere; D50.9 Iron deficiency anemia, unspecified; E78.5 Hyperlipidemia, unspecified; F43.10 Post-traumatic stress disorder, unspecified; Z91.81 History of falling; Z87.891 Personal history of nicotine dependence; Z85.51 Personal history of malignant neoplasm of bladder; Z85.828 Personal history of other malignant neoplasm of skin
CPT/HCPCS: 36415; 36600; 71046; 80048; 80053; 82805; 83090; 83540; 83615; 83880; 83921; 85007; 85025; 85027; 85045; 86850; 86900; 86901; 86920; 94640; 94760; 94761